=== PATIENT | female | born 1990 | race Caucasian/White ===

== ENCOUNTER 2017-03-08 01:19 | Emergency (ER) | payer BC ==
[2017-03-08 01:52] VITALS: BP 121/72
[2017-03-08] MEDS ORDERED: Ondansetron 4 MG Tab.DIS PO ONE (02:23)
[2017-03-08] MEDS ORDERED: Dicyclomine 10 MG Cap PO ONE (02:23)
--- NOTE | 2017-03-08 02:24 | EDM.PDOC ---
ED HPI GENERAL MEDICAL PROBLEM - General Chief Complaint: Abdominal Pain Stated Complaint: ABDOMINAL PAIN Time Seen by Provider: 03/08/17 02:23 Source of Information: Reports: Patient, Family (mother) History Limitations: Reports: No Limitations - History of Present Illness INITIAL COMMENTS - FREE TEXT/NARRATIVE: 26-year-old female presents to the ED with acute onset of nausea vomiting and diarrhea. She reports that she ate out at [employer] restaurant at about 1900 hrs. About 2300 hrs. she had spontaneous onset of nausea vomiting and diarrhea. There is some concern therefore for for potential foodborne illness. She reports she's vomited 5 times the initial emesis did contain partially digested food. The rest has been bilious without blood. Diarrhea is been fairly prolific large-volume watery loss without blood. Associated diffuse lower abdominal cramping pain. No fever but does have some chills. Onset: Sudden Onset Date: 03/07/17 Onset Time: 23:00 Duration: Hour(s):, Constant (Can stop vomiting or having diarrhea) Location: Reports: Other (Nausea vomiting and diarrhea) Severity: Severe Improves with: Reports: None Worsens with: Reports: None Context: Reports: Other (Possible foodborne illness). Denies: Activity, Exercise, Lifting, Sick Contact, Trauma Associated Symptoms: Reports: Fever/Chills, Malaise, Nausea/Vomiting (Chills but no fever intractable), Other (Diarrhea.). 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 Denies: Fever HEENT: Reports: No Symptoms Respiratory: Reports: No Symptoms Cardiovascular: Reports: No Symptoms Endocrine: Reports: No Symptoms GI/Abdominal: Reports: Abdominal Pain (Intermittent abdominal cramping pain before the diarrhea. Upper abdominal pain from vomiting so much.), Diarrhea, Nausea, Vomiting. Denies: Hematemesis, Hematochezia : Reports: No Symptoms Musculoskeletal: Reports: No Symptoms Skin: Reports: No Symptoms Neurological: Reports: No Symptoms Psychiatric: Reports: No Symptoms Hematologic/Lymphatic: Reports: No Symptoms Immunologic: Reports: No Symptoms ED EXAM, GI/ABD - Physical Exam Exam: See Below Exam Limited By: No Limitations General Appearance: Alert, WD/WN, Mild Distress, Other (At that time I had seen her should not vomited for half an hour or had any further diarrhea.) Eyes: Bilateral: Normal Appearance Respiratory/Chest: No Respiratory Distress, Lungs Clear, Normal Breath Sounds, No Accessory Muscle Use Cardiovascular: Normal Peripheral Pulses, Regular Rate, Rhythm, No Edema, No Gallop, No Murmur, No Rub GI/Abdominal Exam: Soft, Non-Tender, No Distention, No Abnormal Bruit, Abnormal Bowel Sounds (Mildly hyperactive bowel sounds throughout.). No: Guarding, Rigid , Rebound Extremities: Normal Inspection, Normal Range of Motion, Non-Tender, No Pedal Edema Neurological: Alert, Oriented, CN II-XII Intact, Normal Cognition Psychiatric: Normal Affect, Normal Mood Course - Vital Signs Last Recorded V/S: Last Vital Signs Temp 36.2 C 03/08/17 01:49 Pulse 92 03/08/17 01:49 Resp 16 03/08/17 01:49 BP 121/72 03/08/17 01:49 Pulse Ox 99 09/10/17 01:49 - Orders/Labs/Meds Meds: Medications Discontinued Medications Generic Name Dose Route Start Last Admin Trade Name Chip PRN Reason Stop Dose Admin Dicyclomine HCl 20 mg 03/08/17 02:23 Bentyl PO 03/08/17 02:24 ONETIME ONE Ondansetron HCl 4 mg 03/08/17 02:23 03/08/17 02:46 Zofran Odt PO 03/08/17 02:24 4 mg ONETIME ONE Administration - Radiology Interpretation Free Text/Narrative:: 26-year-old female presents to the ED with acute onset of nausea vomiting and diarrhea. This occurred about 4 hours after she ate last raising suspicion of foodborne illness or toxin induced illness. She is afebrile. She had not vomited for half an hour had any further diarrhea prior to me seeing her. She therefore elected for oral medications. We'll try oral Zofran 44 mg sublingual every 4-6 hours when necessary for nausea vomiting. Given a tablet in the ED and 2 were sent home from the [facility]. Also Bentyl 20 mg be given now and further dicyclomine will be picked up through the [employer] machine. Tentatively she'll be going to sleep and will try clear fluids in the morning and advance diet as tolerable. Usually foodborne illness will last about 24 hours. Departure - Departure Time of Disposition: 02:32 Disposition: Home, Self-Care 01 Condition: Fair Clinical Impression: Gastroenteritis - Discharge Information Prescriptions: Dicyclomine [Bentyl] 20 mg PO Q6H PRN #5 tablet PRN Reason: Abdominal cramps/diarrhea Dicyclomine [Bentyl] 20 mg PO Q6H PRN #2 tablet PRN Reason: Abdominal cramps/diarrhea Ondansetron [Zofran ODT] 4 mg PO Q6H #2 tab.dis Instructions: Nausea and Vomiting, Adult, [id number] Referrals: Elvira Dutton PA-C [Primary Care Provider] - Forms: ED Department Discharge Additional Instructions: Evaluation in the emergency department due to sudden onset of nausea vomiting and profuse diarrhea. Of note this occurred within 4 hours of eating at a local restaurant. His tree is highly suggestive of foodborne illness I a toxin in something that you ate that produced acute onset of nausea vomiting diarrhea. Treatment is Zofran 4 mg under the tongue every 6 hours as needed to relieve any nausea or vomiting for the next 12-16 hours. Suggest Bentyl 20 mg every 6 hours as needed for relief of abdominal cramping pain and diarrhea. Clear fluids today such as Gatorade Powerade initially. If tolerated may advance to crackers and then to broth soup or chicken rice turkey noodle etc. Then may advance to toast. Hard-boiled egg etc.
[2017-03-08] MEDS ORDERED: Ondansetron 4 MG Tab.DIS ONE (02:53)
== END 2017-03-08 03:20 | disposition home or self-care (01) ==
LOC: JD.ED 01:19
DX: K52.9 Noninfective gastroenteritis and colitis, unspecified (principal); F17.210 Nicotine dependence, cigarettes, uncomplicated
CPT/HCPCS: 99284; A9270

== ENCOUNTER 2018-09-13 11:48 | Emergency (ER) | payer BC | END 2018-09-13 12:00 | disposition left against medical advice (07) | LOC: JD.ED 11:48 | DX: Z53.21 Procedure and treatment not carried out due to patient leaving prior to being seen by health care provider (principal) ==

== ENCOUNTER 2018-09-17 21:08 | Inpatient (IN) | payer BC ==
--- NOTE | 2018-09-17 21:39 | EDM.PDOC ---
ED HPI GENERAL MEDICAL PROBLEM - General Chief Complaint: Skin Complaint Stated Complaint: ABCESS ON LEFT FOOT Time Seen by Provider: 09/17/18 21:09 Source of Information: Reports: Patient History Limitations: Reports: No Limitations - History of Present Illness INITIAL COMMENTS - FREE TEXT/NARRATIVE: This is a 27-year-old female. She states she is an IV drug user and she injects methamphetamine. Her last use was around noon today. Apparently around 6 days ago she attempted to inject in her left foot but she says she didn 't get into the vein and so she didn't inject but it was a dirty needle. She had some redness of that area but then over the last 48 hours she's had marked increased swelling and pain and redness running up the lateral side of her lower leg. Due to the pain and the swelling that is progressively worsened she comes to the ER this evening. She denies any fever or denies any chills. She says she uses consistently and she has track johnson on her hands and her antecubital area and her feet. Left Foot Pain Score (Numeric/FACES): 10 - Related Data Allergies Allergy/AdvReac Type Severity Reaction Status Date / Time No Known Allergies Allergy Verified 03/08/17 01:52 Home Meds: Home Meds . 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: Social & Family History - Family History Family Medical History: Noncontributory - Tobacco Use Smoking Status *Q: Current Every Day Smoker Years of Tobacco use: 10 Packs/Tins Daily: 0.5 - Caffeine Use Caffeine Use: Reports: Coffee, Energy Drinks, Soda, Tea - Recreational Drug Use Recreational Drug Use: Yes Recreational Drug Type: Reports: Methamphetamine Other Recreational Drug Type: last used today at noon; has been using for pat 2 weeks otherwise was clean for 3 yrs - Living Situation & Occupation Living situation: Reports: Single ED ROS GENERAL - Review of Systems Review Of Systems: See Below Constitutional: Denies: Fever, Chills HEENT: Reports: No Symptoms Respiratory: Denies: Shortness of Breath, Cough Cardiovascular: Denies: Chest Pain Endocrine: Reports: No Symptoms GI/Abdominal: Denies: Abdominal Pain, Constipation, Diarrhea, Nausea, Vomiting : Reports: No Symptoms Musculoskeletal: Reports: Foot Pain Skin: Reports: Pallor, Erythema Neurological: Reports: No Symptoms Psychiatric: Reports: No Symptoms Hematologic/Lymphatic: Reports: No Symptoms ED EXAM, SKIN/RASH Exam: See Below Exam Limited By: No Limitations General Appearance: Alert, WD/WN, Mild Distress Eye Exam: Bilateral Eye: Normal Inspection Ears: Normal External Exam Nose: Normal Inspection Throat/Mouth: Normal Inspection, Normal Lips, Normal Voice, No Airway Compromise Head: Normocephalic Neck: Supple Respiratory/Chest: No Respiratory Distress, Lungs Clear, Normal Breath Sounds Cardiovascular: Regular Rate, Rhythm, No Murmur GI/Abdominal: Soft, Other (She denies any tenderness) Back Exam: Full Range of Motion Extremities: Other (She has multiple injection sites on her hands and antecubital area and arms as well as her feet, her left lower extremity is markedly swollen with severe edema and erythema that runs up about a third of the way up her left lower leg on the lateral side, she does have good capillary refill in her toes but her dorsal foot is somewhat pale, she has no ability to move her ankle or her toes secondary to pain) Neurological: Alert, Oriented Psychiatric: Anxious Skin: Warm, Dry Associated features: Tenderness, Swelling, Induration, Inflammation Course - Vital Signs Last Recorded V/S: Last Vital Signs Temp 98.3 F 09/17/18 21:23 Pulse 110 H 09/17/18 21:23 Resp 20 09/17/18 21:23 BP 109/59 L 09/17/18 21:23 Pulse Ox 99 09/17/18 21:23 - Orders/Labs/Meds Orders: Active Orders 24 hr Category Date Time Status Extremity Non Vascular Lt [US] Stat Exams 09/17/18 21:59 Ordered Lower Leg w Cont Lt [CT] Stat Exams 09/17/18 22:11 Taken VL Duplex Lwr Ext Veins Ltd Lt [US] Stat Exams 09/17/18 21:40 Taken CULTURE BLOOD [BC] Stat Lab 09/17/18 23:00 Received CULTURE BLOOD [BC] Stat Lab 09/17/18 23:05 Received cefTRIAXone [Rocephin] 2 gm Med 09/17/18 23:45 Active Sodium Chloride 0.9% [Normal Saline] 100 ml IV Q24H Blood Culture x2 Reflex Set [OM.PC] Stat Oth 09/17/18 22:40 Ordered Medication Orders Ceftriaxone Sodium 2 gm/ (Sodium Chloride) 100 mls @ 200 mls/hr IV Q24H CYNTHIA Last Admin: 09/17/18 23:53 Dose: 200 mls/hr Labs: Laboratory Tests 09/17/18 09/17/18 09/17/18 Range/Units 21:57 21:57 23:00 WBC 32.52 H (3.98-10.04) K/mm3 RBC 4.26 (3.98-5.22) M/mm3 Hgb 13.4 (11.2-15.7) gm/L Hct 39.6 (34.1-44.9) % MCV 93.0 (79.4-94.8) fl MCH 31.5 (25.6-32.2) pg MCHC 33.8 (32.2-35.5) g/dl RDW Std Deviation 41.2 (36.4-46.3) fL Plt Count 181 L (182-369) K/mm3 MPV 11.4 (9.4-12.3) fl Neut % (Auto) 87.5 H (34.0-71.1) % Lymph % (Auto) 5.2 L (19.3-51.7) % Bibb % (Auto) 6.0 (4.7-12.5) % Eos % (Auto) 0.7 (0.7-5.8) Baso % (Auto) 0.1 (0.1-1.2) % Neut # (Auto) 28.42 H (1.56-6.13) K/mm3 Lymph # (Auto) 1.69 (1.18-3.74) K/mm3 Bibb # (Auto) 1.96 H (0.24-0.36) K/mm3 Eos # (Auto) 0.24 (0.04-0.36) K/mm3 Baso # (Auto) 0.04 (0.01-0.08) K/mm3 Manual Slide Review Abnormal smear Sodium 136 (136-145) mEq/L Potassium 3.3 L (3.5-5.1) mEq/L Chloride 101 (98-107) mEq/L Carbon Dioxide 24 (21-32) mEq/L Anion Gap 14.3 (5-15) BUN 11 (7-18) mg/dL Creatinine 0.9 (0.55-1.02) mg/dL Est Cr Clr Drug Dosing 79.04 mL/min Estimated GFR (MDRD) > 60 (>60) mL/min BUN/Creatinine Ratio 12.2 L (14-18) Glucose 108 H (74-106) mg/dL Lactic Acid 0.8 (0.4-2.0) mmol/L Calcium 8.8 (8.5-10.1) mg/dL Total Bilirubin 1.1 H (0.2-1.0) mg/dL AST 14 L (15-37) U/L ALT 22 (14-59) U/L Alkaline Phosphatase 106 (46-116) U/L C-Reactive Protein 37.3 H* (<1.0) mg/dL Total Protein 7.0 (6.4-8.2) g/dl Albumin 3.2 L (3.4-5.0) g/dl Globulin 3.8 gm/dL Albumin/Globulin Ratio 0.8 L (1-2) Meds: Medications Generic Name Dose Route Start Last Admin Trade Name Freq PRN Reason Stop Dose Admin Ceftriaxone Sodium 2 gm/ 100 mls @ 200 mls/hr 09/17/18 23:45 09/17/18 23:53 Sodium Chloride IV 200 mls/hr Q24H CYNTHIA Administration Discontinued Medications Generic Name Dose Route Start Last Admin Trade Name Freq PRN Reason Stop Dose Admin Iopamidol 100 ml 09/17/18 22:26 Isovue-370 (76%) IV 09/17/18 22:27 ONETIME ONE Ketorolac Tromethamine 60 mg 09/17/18 21:42 09/17/18 21:47 Toradol IM 09/17/18 21:43 60 mg ONETIME ONE Administration Ketorolac Tromethamine 60 mg 09/17/18 21:43 09/17/18 21:49 Toradol IM 09/17/18 21:44 Not Given ONETIME ONE Tramadol HCl 50 mg 09/17/18 21:43 09/17/18 21:48 Ultram PO 09/17/18 21:44 50 mg ONETIME ONE Administration Tramadol HCl 100 mg 09/17/18 21:43 09/17/18 21:49 Ultram PO 09/17/18 21:44 Not Given ONETIME ONE - Radiology Interpretation Free Text/Narrative:: Ultrasound of the left ankle and foot does not reveal any abscess just edema CT scan of the left ankle and foot also reveals a large amount of subcutaneous edema but there is no abscesses no suggestion of osteomyelitis. - Re-Assessments/Exams Free Text/Narrative Re-Assessment/Exam: 09/18/18 00:04 I spoke to the patient regarding the ultrasound results as well as the CT scan results. I spoke to her about her white count 32,000 and her C-reactive protein of 37 and that she needs to be in the hospital for IV antibiotics. She is agreeable to this. I spoke to Dr. Booth and he is willing to admit the patient for further evaluation and treatment of her cellulitis. Departure - Departure Time of Disposition: 00:05 Disposition: Admitted As Inpatient 68 Condition: Fair Clinical Impression: Cellulitis of left foot, Cellulitis of left ankle, Neutrophilic leukocytosis, Elevated C-reactive protein, IV drug user, Methamphetamine abuse - Discharge Information ED Communication - ED Communication Date/Time Date: 09/18/18 Time Called: 00:07 - Discussed Case With (1) Discussed Case With (1): Admitting Provider Person/s Notified (1): Jose Booth (He will admit for further evaluation and treatment) - My Orders Last 24 Hours: My Active Orders 09/17/18 21:40 VL Duplex Lwr Ext Veins Ltd Lt [US] Stat 09/17/18 21:59 Extremity Non Vascular Lt [US] Stat 09/17/18 22:11 Lower Leg w Cont Lt [CT] Stat 09/17/18 22:40 Blood Culture x2 Reflex Set [OM.PC] Stat 09/17/18 23:00 CULTURE BLOOD [BC] Stat 09/17/18 23:05 CULTURE BLOOD [BC] Stat 09/17/18 23:45 cefTRIAXone [Rocephin] 2 gm Sodium Chloride 0.9% [Normal Saline] 100 ml IV Q24H - Assessment/Plan Last 24 Hours: My Active Orders 09/17/18 21:40 VL Duplex Lwr Ext Veins Ltd Lt [US] Stat 09/17/18 21:59 Extremity Non Vascular Lt [US] Stat 09/17/18 22:11 Lower Leg w Cont Lt [CT] Stat 09/17/18 22:40 Blood Culture x2 Reflex Set [OM.PC] Stat 09/17/18 23:00 CULTURE BLOOD [BC] Stat 09/17/18 23:05 CULTURE BLOOD [BC] Stat 09/17/18 23:45 cefTRIAXone [Rocephin] 2 gm Sodium Chloride 0.9% [Normal Saline] 100 ml IV Q24H
[2018-09-17] MEDS ORDERED: Ketorolac 60 MG/2 ML SDV IM ONE ×2 (21:42→21:43)
[2018-09-17] MEDS ORDERED: traMADol 50 MG Tab PO ONE ×2 (21:43)
[2018-09-17] MEDS ORDERED: Iopamidol 755 Mg/ML 200 ML Bottle IV ONE (22:26)
[2018-09-17] MEDS ORDERED: cefTRIAXone 2 GM in Sodium Chloride 0.9% 100 ML IV SCH (23:45)
[2018-09-18] MEDS ORDERED: Sodium Chloride 0.9% 1,000 ML ONE (01:14)
[2018-09-18] MEDS ORDERED: LORazepam 2 MG/ML SDV IVPUSH PRN ×2 (02:20→08:40)
[2018-09-18] MEDS ORDERED: HYDROmorphone 1 MG/ML Syringe IVPUSH ONE (07:13)
[2018-09-18] MEDS: Acetaminophen/HYDROcodone 325-5 MG Tab PO PRN ×4 (07:26→20:56)
[2018-09-18] MEDS ORDERED: hydrALAZINE 20 MG/ML SDV IVPUSH PRN (08:40)
[2018-09-18] MEDS ORDERED: Metoprolol Tartrate 5 MG/5 ML SDV IVPUSH PRN (08:40)
[2018-09-18] MEDS ORDERED: LORazepam 2 MG/ML SDV IV PRN (08:42)
[2018-09-18] MEDS ORDERED: Bisacodyl 5 MG Tab PO PRN (08:42)
[2018-09-18] MEDS ORDERED: Albuterol/Ipratropium 3.0-0.5 MG/3 ML Neb Soln NEB PRN (08:42)
[2018-09-18] MEDS ORDERED: Temazepam 15 MG Cap PO PRN (08:42)
[2018-09-18] MEDS ORDERED: Polyethylene Glycol 3350 Powder 17 GM Packet PO PRN (08:42)
[2018-09-18] MEDS ORDERED: Docusate Sodium 100 MG Cap PO PRN (08:42)
[2018-09-18] MEDS ORDERED: Ondansetron 4 MG/2 ML SDV IV PRN (08:42)
[2018-09-18] MEDS ORDERED: Famotidine 20 MG/2 ML SDV IVPUSH ONE (09:00)
[2018-09-18] MEDS ORDERED: Potassium Chloride 20 MEQ Tab.ER PO ONE (09:15)
[2018-09-18] MEDS: Enoxaparin 40 MG/0.4 ML Syringe SUBCUT SCH (09:19)
[2018-09-18] MEDS: Sodium Chloride 0.9% 1,000 ML IV SCH ×2 (09:20→17:27)
[2018-09-18] MEDS: Ketorolac 30 MG/ML SDV IM PRN ×2 (09:32→16:12)
--- NOTE | 2018-09-18 09:51 | PCM.HP ---
H&P History of Present Illness - General Date of Service: 09/18/18 Admit Problem/Dx: Admission Diagnosis/Problem Admission Diagnosis/Problem Cellulitis Source of Information: Patient, Provider, RN Notes Reviewed History Limitations: Reports: Physical Impairment - History of Present Illness Initial Comments - Free Text/Narative: This is a 27 yo white female with past medical hx/o Nicotine Dependence, Hx/o Heroin Abuse, Chronic Meth and Marijuana Use who comes in for evaluation of left foot pain associated with worsening edema and erythema that started over the past 48 hours. She denies any fever or chills. However she admits she is an IVU and she injects meth in her left ankle. He last use was about noon yesterday. She is also a marijuana user. She denies a similar hx/o it in the past. Patient smokes cigarettes about 1/2 a pack per day. She drinks 2-3 beers once a week. Her initial work up in ED shows a CBC remarkable for WBC of 32.52, Platelet of 181, Neutrophils of 87.5%, Lymphocyte of 5.2%, Neutrophil # of 28.42, and Monocyte # of 1.96. Her chemistry is significant for K of 3.3, BS of 108, Total Bilirubin of 1.1, AST of 14, CRP of 37.3, and Albumin of 3.2. Her screening is negative. Her left lower extremity US and CT scan report both reads diffuse subcutaneous edema. Patient is being admitted primarily for management of severe left foot infection. Left Foot Pain Score (Numeric/FACES): 10 - Related Data Allergies/Adverse Reactions: Allergies Allergy/AdvReac Type Severity Reaction Status Date / Time No Known Allergies Allergy Verified 09/18/18 03:43 Home Medications: Home Meds . [No Known Home Meds] 09/17/18 [History] Past Medical History - Past Health History Medical/Surgical History: Denies Medical/Surgical History HEENT History: Reports: Impaired Vision, Other (See Below) Other HEENT History: pt wears glasses [employer] History: Reports: Psychiatric History: Reports: Anxiety, Depression Endocrine/Metabolic History: Reports: Obesity/BMI 30+ - Infectious Disease History Infectious Disease History: Reports: Chicken Pox - Past Surgical History HEENT Surgical History: Reports: None Endocrine Surgical History: Reports: None Social & Family History - Family History Family Medical History: Noncontributory - Tobacco Use Smoking Status *Q: Current Every Day Smoker Years of Tobacco use: 10 Packs/Tins Daily: 1 Used Tobacco, but Quit: No Second Hand Smoke Exposure: No - Caffeine Use Caffeine Use: Reports: Coffee, Energy Drinks, Soda, Tea Other Caffeine Use: one soda, one coffee and every couple of days energy drink or tea - Recreational Drug Use Recreational Drug Use: Yes Drug Use in Last 12 Months: Yes Recreational Drug Type: Reports: Marijuana/Hashish, Methamphetamine Other Recreational Drug Type: last used today at noon; has been using for pat 2 weeks otherwise was clean for 3 yrs Recreational Drug Use Frequency: Daily - Living Situation & Occupation Living situation: Reports: Single H&P Review of Systems - Review of Systems: Review Of Systems: See Below General: Reports: Fever, Chills, Weakness. Denies: Malaise, Fatigue HEENT: Reports: No Symptoms Pulmonary: Reports: Shortness of Breath, Cough, Sputum Cardiovascular: Reports: Edema. Denies: Chest Pain, Dyspnea on Exertion, Lightheadedness, Claudication, Blood Pressure Problem Gastrointestinal: Denies: Abdominal Pain, Decreased Appetite, Nausea, Vomiting Musculoskeletal: Reports: Foot Pain Skin: Reports: No Symptoms, Pallor, Erythema, Change in Color. Denies: Jaundice , Diaphoresis, Bruising, Pruritis, Rash, Change in Hair/Nails, Lumps Psychiatric: Denies: Depression, Anxiety, Hallucinations, Suicidal Ideation Neurological: Reports: Difficulty Walking, Gait Disturbance. Denies: Confusion , Dizziness, Weakness Hematologic/Lymphatic: Reports: No Symptoms Immunologic: Reports: No Symptoms Exam - Exam Exam: See Below - Vital Signs Vital Signs: Last Vital Signs Temp 36.1 C 09/18/18 08:01 Pulse 97 09/18/18 08:01 Resp 14 09/18/18 08:01 BP 129/59 L 09/18/18 08:01 Pulse Ox 96 09/18/18 08:01 Weight: 78.744 kg - Exam General: Alert, Oriented, Cooperative, Mild Distress HEENT: Conjunctiva Clear, EACs Clear, EOMI, Hearing Intact, Mucosa Moist & Wiggins , Nares Patent, Normal Nasal Septum, Posterior Pharynx Clear, Pupils Equal, Pupils Reactive Neck: Supple, Trachea Midline Lungs: Clear to Auscultation, Normal Respiratory Effort Cardiovascular: Regular Rate, Regular Rhythm, Normal S1, Normal S2. No: Systolic Murmur, Diastolic Murmur GI/Abdominal Exam: Normal Bowel Sounds, Soft, Non-Tender, No Organomegaly, No Distention, No Abnormal Bruit, No Mass (Female) Exam: Deferred Rectal (Female) Exam: Deferred Back Exam: Normal Inspection, Full Range of Motion Extremities: Normal Inspection (right lower extremity), Normal Range of Motion ( right lower extremity), Non-Tender (right lower extremity), No Pedal Edema ( right lower extremity), Normal Capillary Refill (right lower extremity), Leg Pain (left lower extremity), Limited Range of Motion (left lower extremity), Increased Warmth (left lower extremity), Redness (left lower extremity), Other ( multiple injection sites in her hands and antecubital area and arms as well as her feet) Peripheral Pulses: 0: Posterior Tibial (L) (unable to palpate due to edema), Dorsalis Pedis (R) (unable to palpate due to edema), 3+: Posterior Tibial (R), Dorsalis Pedis (L) Skin: Warm, Dry, Intact Skin Alteration Location (Drawings Not To Scale): 1 - severe edema, erythema and pain with palpation. no movement at her ankle or toes due to pain. noted bliters/bulae at lateral ankle - Patient Data Lab Results Last 24 hrs: Laboratory Results - last 24 hr 09/17/18 09/17/18 09/17/18 Range/Units 21:57 21:57 21:57 WBC 32.52 H (3.98-10.04) K/mm3 RBC 4.26 (3.98-5.22) M/mm3 Hgb 13.4 (11.2-15.7) gm/L Hct 39.6 (34.1-44.9) % MCV 93.0 (79.4-94.8) fl MCH 31.5 (25.6-32.2) pg MCHC 33.8 (32.2-35.5) g/dl RDW Std Deviation 41.2 (36.4-46.3) fL Plt Count 181 L (182-369) K/mm3 MPV 11.4 (9.4-12.3) fl Neut % (Auto) 87.5 H (34.0-71.1) % Lymph % (Auto) 5.2 L (19.3-51.7) % [place] % (Auto) 6.0 (4.7-12.5) % Eos % (Auto) 0.7 (0.7-5.8) Baso % (Auto) 0.1 (0.1-1.2) % Neut # (Auto) 28.42 H (1.56-6.13) K/mm3 Lymph # (Auto) 1.69 (1.18-3.74) K/mm3 [place] # (Auto) 1.96 H (0.24-0.36) K/mm3 Eos # (Auto) 0.24 (0.04-0.36) K/mm3 Baso # (Auto) 0.04 (0.01-0.08) K/mm3 Manual Slide Review Abnormal smear Sodium 136 (136-145) mEq/L Potassium 3.3 L (3.5-5.1) mEq/L Chloride 101 (98-107) mEq/L Carbon Dioxide 24 (21-32) mEq/L Anion Gap 14.3 (5-15) BUN 11 (7-18) mg/dL Creatinine 0.9 (0.55-1.02) mg/dL Est Cr Clr Drug Dosing 79.04 mL/min Estimated GFR (MDRD) > 60 (>60) mL/min BUN/Creatinine Ratio 12.2 L (14-18) Glucose 108 H (74-106) mg/dL Lactic Acid (0.4-2.0) mmol/L Calcium 8.8 (8.5-10.1) mg/dL Total Bilirubin 1.1 H (0.2-1.0) mg/dL AST 14 L (15-37) U/L ALT 22 (14-59) U/L Alkaline Phosphatase 106 (46-116) U/L C-Reactive Protein 37.3 H* (<1.0) mg/dL Total Protein 7.0 (6.4-8.2) g/dl Albumin 3.2 L (3.4-5.0) g/dl Globulin 3.8 gm/dL Albumin/Globulin Ratio 0.8 L (1-2) HCG, Qual Negative (NEGATIVE) 09/17/18 09/18/18 Range/Units 23:00 07:00 WBC 27.85 H (3.98-10.04) K/mm3 RBC 4.11 (3.98-5.22) M/mm3 Hgb 12.9 (11.2-15.7) gm/L Hct 37.8 (34.1-44.9) % MCV 92.0 (79.4-94.8) fl MCH 31.4 (25.6-32.2) pg MCHC 34.1 (32.2-35.5) g/dl RDW Std Deviation 41.6 (36.4-46.3) fL Plt Count 137 L (182-369) K/mm3 MPV 11.5 (9.4-12.3) fl Neut % (Auto) (34.0-71.1) % Lymph % (Auto) (19.3-51.7) % [place] % (Auto) (4.7-12.5) % Eos % (Auto) (0.7-5.8) Baso % (Auto) (0.1-1.2) % Neut # (Auto) (1.56-6.13) K/mm3 Lymph # (Auto) (1.18-3.74) K/mm3 [place] # (Auto) (0.24-0.36) K/mm3 Eos # (Auto) (0.04-0.36) K/mm3 Baso # (Auto) (0.01-0.08) K/mm3 Manual Slide Review Sodium (136-145) mEq/L Potassium (3.5-5.1) mEq/L Chloride (98-107) mEq/L Carbon Dioxide (21-32) mEq/L Anion Gap (5-15) BUN (7-18) mg/dL Creatinine (0.55-1.02) mg/dL Est Cr Clr Drug Dosing mL/min Estimated GFR (MDRD) (>60) mL/min BUN/Creatinine Ratio (14-18) Glucose (74-106) mg/dL Lactic Acid 0.8 (0.4-2.0) mmol/L Calcium (8.5-10.1) mg/dL Total Bilirubin (0.2-1.0) mg/dL AST (15-37) U/L ALT (14-59) U/L Alkaline Phosphatase (46-116) U/L C-Reactive Protein (<1.0) mg/dL Total Protein (6.4-8.2) g/dl Albumin (3.4-5.0) g/dl Globulin gm/dL Albumin/Globulin Ratio (1-2) HCG, Qual (NEGATIVE) Result Diagrams: 09/19/18 06:25 09/19/18 06:25 Franco Results Last 24 hrs: Microbiology 09/17/18 23:05 Anaerobic Blood Culture - Final Blood - Venous - Lab Draw Problem List Initiated/Reviewed/Updated: Yes Orders Last 24hrs: Active Orders 24 hr Category Date Time Status Admission Status [Patient Status] [ADT] Routine ADT 09/18/18 00:24 Active Height and Weight [RC] DAILY Care 09/18/18 08:42 Active Intake and Output [RC] QSHIFT Care 09/18/18 08:42 Active Oxygen Therapy [RC] PRN Care 09/18/18 08:42 Active RT Aerosol Therapy [RC] ASDIRECTED Care 09/18/18 08:45 Active Up With Assistance [RC] ASDIRECTED Care 09/18/18 02:27 Active VTE/DVT Education [RC] PER UNIT ROUTINE Care 09/18/18 08:42 Active Vital Signs [RC] Q4H Care 09/18/18 08:42 Active Consult to Case Management/Technical Specialist Cytogenetics [CONS] Cons 09/18/18 08:42 Active Routine Consult to Spiritual Care [CONS] Routine Cons 09/18/18 08:42 Active OT Evaluation and Treatment [CONS] Routine Cons 09/18/18 08:42 Active PT Evaluation and Treatment [CONS] Routine Cons 09/18/18 08:42 Active General [Regular Diet] [DIET] Diet 09/18/18 Lunch Active Extremity Non Vascular Lt [US] Stat Exams 09/17/18 21:59 Ordered Lower Leg w Cont Lt [CT] Stat Exams 09/17/18 22:11 Taken VL Duplex Lwr Ext Veins Ltd Lt [US] Stat Exams 09/17/18 21:40 Taken BASIC METABOLIC PANEL,BMP [CHEM] AM Lab 09/19/18 05:11 Ordered BASIC METABOLIC PANEL,BMP [CHEM] AM Lab 09/20/18 05:11 Ordered BASIC METABOLIC PANEL,BMP [CHEM] AM Lab 09/21/18 05:11 Ordered BASIC METABOLIC PANEL,BMP [CHEM] AM Lab 09/22/18 05:11 Ordered C-REACTIVE PROTEIN [CHEM] AM Lab 09/19/18 05:11 Ordered C-REACTIVE PROTEIN [CHEM] AM Lab 09/20/18 05:11 Ordered C-REACTIVE PROTEIN [CHEM] AM Lab 09/21/18 05:11 Ordered C-REACTIVE PROTEIN [CHEM] AM Lab 09/22/18 05:11 Ordered CBC WITH AUTO DIFF [HEME] AM Lab 09/19/18 05:11 Ordered CBC WITH AUTO DIFF [HEME] AM Lab 09/20/18 05:11 Ordered CBC WITH AUTO DIFF [HEME] AM Lab 09/21/18 05:11 Ordered CBC WITH AUTO DIFF [HEME] AM Lab 09/22/18 05:11 Ordered CULTURE BLOOD [BC] Stat Lab 09/17/18 23:00 Received CULTURE BLOOD [BC] Stat Lab 09/17/18 23:05 Results DRUG SCREEN, URINE REFLEX [URCHEM] Stat Lab 09/18/18 08:40 Ordered MAGNESIUM [CHEM] AM Lab 09/19/18 05:11 Ordered MAGNESIUM [CHEM] AM Lab 09/20/18 05:11 Ordered MAGNESIUM [CHEM] AM Lab 09/21/18 05:11 Ordered MAGNESIUM [CHEM] AM Lab 09/22/18 05:11 Ordered Acetaminophen [Tylenol] Med 09/18/18 08:42 Active 650 mg PO Q4H PRN Acetaminophen/HYDROcodone [[place] 325-5 MG] Med 09/18/18 07:14 Active 1 tab PO Q4H PRN Albuterol/Ipratropium [DuoNeb 3.0-0.5 MG/3 ML] Med 09/18/18 08:42 Active 3 ml NEB Q4H PRN Bisacodyl [Dulcolax] Med 09/18/18 08:42 Active 5 mg PO DAILY PRN Docusate Sodium [Colace] Med 09/18/18 08:42 Active 100 mg PO BID PRN Docusate Sodium/Sennosides [Senna Plus] Med 09/18/18 08:42 Active 1 tab PO BID PRN Enoxaparin [Lovenox] Med 09/18/18 09:00 Active 40 mg SUBCUT DAILY Famotidine [Pepcid] Med 09/18/18 21:00 Active 20 mg PO BID HYDROmorphone [Dilaudid] Med 09/18/18 08:42 Active 0.5 mg IVPUSH Q6H PRN Ketorolac [Toradol] Med 09/18/18 08:42 Active 30 mg IM Q6H PRN LORazepam [Ativan] Med 09/18/18 02:20 Active 0.5 mg IVPUSH Q4H PRN LORazepam [Ativan] Med 09/18/18 08:42 Active 1 mg IV Q6H PRN LORazepam [Ativan] Med 09/18/18 08:40 Active 2 mg IVPUSH Q4H PRN Metoprolol Tartrate [Lopressor] Med 09/18/18 08:40 Active 5 mg IVPUSH Q4H PRN Ondansetron [Zofran] Med 09/18/18 08:42 Active 4 mg IV Q6H PRN Pharmacy to Dose - Magnesium R [Pharmacy to Dose - Med 09/18/18 08:45 Active Magnesium Replacement] 0 dose .XX ASDIRECTED PRN Pharmacy to Dose - Potassium R [Pharmacy to Dose - Med 09/18/18 08:45 Active Potassium Replacement] 0 dose .XX ASDIRECTED PRN Polyethylene Glycol 3350 [MiraLAX] Med 09/18/18 08:42 Active 17 gm PO DAILY PRN Sodium Chloride 0.9% [Normal Saline] 1,000 ml Med 09/18/18 02:30 Active IV ASDIRECTED Temazepam [Restoril] Med 09/18/18 08:42 Active 15 mg PO BEDTIME PRN cefTRIAXone [Rocephin] 2 gm Med 09/18/18 12:00 Active Sodium Chloride 0.9% [Normal Saline] 100 ml IV Q24H hydrALAZINE [Apresoline] Med 09/18/18 08:40 Active 20 mg IVPUSH Q4H PRN Blood Culture x2 Reflex Set [OM.PC] Stat Oth 09/17/18 22:40 Ordered Code Status [Resuscitation Status] Routine Resus Stat 09/18/18 02:25 Ordered Medication Orders Acetaminophen (Tylenol) 650 mg PO Q4H PRN PRN Reason: Pain (Mild 1-3)/fever Hydrocodone Bitart/Acetaminophen ([place] 325-5 Mg) 1 tab PO Q4H PRN PRN Reason: Pain Last Admin: 09/18/18 07:26 Dose: 1 tab Albuterol/Ipratropium (Duoneb 3.0-0.5 Mg/3 Ml) 3 ml NEB Q4H PRN PRN Reason: Shortness Of Breath/wheezing Bisacodyl (Dulcolax) 5 mg PO DAILY PRN PRN Reason: Constipation Docusate Sodium (Colace) 100 mg PO BID PRN PRN Reason: Constipation Enoxaparin Sodium (Lovenox) 40 mg SUBCUT DAILY [facility] Last Admin: 09/18/18 09:19 Dose: 40 mg Famotidine (Pepcid) 20 mg PO BID [place] Hydralazine HCl (Apresoline) 20 mg IVPUSH Q4H PRN PRN Reason: Hypertension Hydromorphone HCl (Dilaudid) 0.5 mg IVPUSH Q6H PRN PRN Reason: Pain (severe 7-10) Sodium Chloride (Normal Saline) 1,000 mls @ 125 mls/hr IV ASDIRECTED [facility] Last Admin: 09/18/18 09:20 Dose: 125 mls/hr Ceftriaxone Sodium 2 gm/ (Sodium Chloride) 100 mls @ 200 mls/hr IV Q24H [facility] Ketorolac Tromethamine (Toradol) 30 mg IM Q6H PRN PRN Reason: Pain (moderate 4-6) Last Admin: 09/18/18 09:32 Dose: 30 mg Lorazepam (Ativan) 0.5 mg IVPUSH Q4H PRN PRN Reason: Withdrawal Symptoms Lorazepam (Ativan) 2 mg IVPUSH Q4H PRN PRN Reason: Seizures Lorazepam (Ativan) 1 mg IV Q6H PRN PRN Reason: Anxiety Magnesium Sulfate (Pharmacy To Dose - Magnesium Replacement) 0 dose .XX ASDIRECTED PRN PRN Reason: RX TO WATCH MAG Metoprolol Tartrate (Lopressor) 5 mg IVPUSH Q4H PRN PRN Reason: Tachycardia Ondansetron HCl (Zofran) 4 mg IV Q6H PRN PRN Reason: Nausea/Vomiting Polyethylene Glycol (Miralax) 17 gm PO DAILY PRN PRN Reason: Constipation Potassium Chloride (Pharmacy To Dose - Potassium Replacement) 0 dose .XX ASDIRECTED PRN PRN Reason: RX TO WATCH K Senna/Docusate Sodium (Senna Plus) 1 tab PO BID PRN PRN Reason: Constipation Temazepam (Restoril) 15 mg PO BEDTIME PRN PRN Reason: Sleep Assessment/Plan Comment:: Assessment/Plan: Acute: Sepsis - 2/2 Severe Left Foot Infection - Tachycardia and WBC 33-->27K plus Infection - Received IV 2 Grams of IV Rocephin x1 in ED - Change antibiotic regimen to IV Vancomycin and Zosyn for pharmacy to dose Severe Left Foot Cellulitis With Significant Edema - 2/2 IV Drug Use - She is a known Meth user; last use was yesterday - She injects with re-used needle on her ankle - U/S shows report diffuse subcutaneous edema - CT scan report reads diffuse subcutaneous edema. No bony erosion to indicate osteomyelitis. No focal fluid collections of abscess are seen. - WBC 32.52--> 27.85; CRP 37.3 - Pain management plus NSAIDs - IV Antibiotic as above - PT/OT consult - Monitor for worsening of foot infection Chronic: Substance Abuse: Meth and Marijuana Nicotine Dependence, Counseled on Smoking Cessation Plan: Admit to [facility] Routine AM Labs SAC consult for substance abuse UA and UDS if not already done Nicotine Patch Daily Add Opioids for pain control; patient is a meth addict cannot expect to just control her pain with NSAIDs Ketorolac for anti-inflammatory agent GI/DVT PPx: H2B/Lovenox SubQ Daily PT/OT for assessment and evaluation SW/CM for d/c planning
[2018-09-18] MEDS ORDERED: cefTRIAXone 2 GM in Sodium Chloride 0.9% 100 ML IV SCH ×2 (12:00)
[2018-09-18] MEDS: Nicotine 21 MG/24 Hr Patch TRDERM SCH (13:56)
--- NOTE | 2018-09-18 16:26 | CT ---
CT left ankle Technique: Multiple axial sections through the left ankle were obtained. Intravenous contrast was utilized. Comparison: Previous ankle ultrasound study performed earlier on the same day (9:59 PM). Diffuse subcutaneous edema is seen around the ankle, most prominent laterally. No focal fluid collections are seen. No bony erosions are identified. Three calcifications are seen along the medial ankle compatible with old injury and dystrophic calcification. No soft tissue air is seen. Impression: 1. Diffuse subcutaneous edema. No bony erosion is seen to indicate osteomyelitis. No focal fluid collections of abscess are seen. 2. Other incidental findings as noted above. Diagnostic code #3 I agree with preliminary report from [facility], finalized on 09/18/18, 12:50 AM Central Time
--- NOTE | 2018-09-18 16:26 | US ---
Left ankle ultrasound: Multiple real-time images of the left ankle were obtained. Comparison: No previous study of this anatomy. Findings: Subcutaneous edema identified in area described as swelling/redness. No focal fluid collections to indicate abscess. No soft tissue mass is seen. Impression: 1. Diffuse subcutaneous edema. Diagnostic code #3 I agree with preliminary report from [facility], finalized on 09/17/18, 11:37 PM Central Time
[2018-09-18] MEDS ORDERED: Vancomycin 500 MG SDV IV SCH (19:00)
[2018-09-18] MEDS ORDERED: Piperacillin/Tazobactam 4.5 GM in Sodium Chloride 0.9% 100 ML IV ONE (19:15)
[2018-09-18] MEDS: Saccharomyces Boulardii (Probiotic) 250 MG Cap PO SCH (20:56)
[2018-09-18] MEDS: Famotidine 20 MG Tab PO SCH (20:56)
[2018-09-18] MEDS: HYDROmorphone 1 MG/ML Syringe IVPUSH PRN (21:06)
[2018-09-19] MEDS: Sodium Chloride 0.9% 1,000 ML IV SCH ×2 (02:23→15:30)
[2018-09-19] MEDS: Piperacillin/Tazobactam 4.5 GM in Sodium Chloride 0.9% 100 ML IV SCH ×4 (02:23→21:27)
[2018-09-19] MEDS: Ketorolac 30 MG/ML SDV IM PRN (02:24)
[2018-09-19] MEDS: HYDROmorphone 1 MG/ML Syringe IVPUSH PRN ×2 (08:24→20:11)
[2018-09-19] MEDS: Acetaminophen/HYDROcodone 325-5 MG Tab PO PRN ×3 (08:25→16:05)
[2018-09-19] MEDS: Nicotine 21 MG/24 Hr Patch TRDERM SCH (08:34)
[2018-09-19] MEDS: Saccharomyces Boulardii (Probiotic) 250 MG Cap PO SCH (08:35)
[2018-09-19] MEDS: Famotidine 20 MG Tab PO SCH (08:35)
[2018-09-19] MEDS: Enoxaparin 40 MG/0.4 ML Syringe SUBCUT SCH (08:35)
--- NOTE | 2018-09-19 09:30 | PCM.PN ---
- General Info Date of Service: 09/19/18 Admission Dx/Problem (Free Text): Admission Diagnosis/Problem Admission Diagnosis/Problem Cellulitis Subjective Update: Follow Up Functional Status: Reports: Pain Controlled, Tolerating Diet, Urinating, New Symptoms - Review of Systems General: Denies: Fever, Weakness, Fatigue, Malaise HEENT: Reports: No Symptoms Pulmonary: Denies: Shortness of Breath Cardiovascular: Denies: Chest Pain, Dyspnea on Exertion, Lightheadedness Gastrointestinal: Reports: Nausea, Vomiting. Denies: Abdominal Pain, Decreased Appetite, Diarrhea Genitourinary: Reports: No Symptoms Musculoskeletal: Reports: No Symptoms Skin: Denies: Cyanosis, Bruising Neurological: Reports: Difficulty Walking, Weakness, Gait Disturbance. Denies: Confusion Psychiatric: Denies: Depression, Anxiety, Agitation, Hallucinations Systems Review Comment:: Had an emesis last night and then again this morning during rounds. Her pain is controlled. Her WBC and CRP are improving. She is afebrile. Her K and Mg levels are mildly low. She is requesting some sort of a cream to use to make her needle track johnson go away on both hands. She does not think she is withdrawing from Meth. She states she would know and if she does very mild. However she states she had a hx/o heroin withdrawal in the past. - Patient Data Vitals - Most Recent: Last Vital Signs Temp 37.7 C 09/19/18 08:03 Pulse 96 09/19/18 08:03 Resp 14 09/19/18 08:03 BP 151/74 H 09/19/18 08:03 Pulse Ox 91 L 09/19/18 08:03 Weight - Most Recent: 78.97 kg I&O - Last 24 Hours: Intake & Output 09/18/18 09/19/18 09/19/18 22:59 06:59 14:59 Intake Total 2034 2270 Output Total 700 650 Balance 1334 1620 Lab Results Last 24 Hours: Laboratory Results - last 24 hr 09/18/18 09/18/18 09/18/18 Range/Units 11:05 16:03 18:00 WBC (3.98-10.04) K/mm3 RBC (3.98-5.22) M/mm3 Hgb (11.2-15.7) gm/L Hct (34.1-44.9) % MCV (79.4-94.8) fl MCH (25.6-32.2) pg MCHC (32.2-35.5) g/dl RDW Std Deviation (36.4-46.3) fL Plt Count (182-369) K/mm3 MPV (9.4-12.3) fl Neut % (Auto) (34.0-71.1) % Lymph % (Auto) (19.3-51.7) % [place] % (Auto) (4.7-12.5) % Eos % (Auto) (0.7-5.8) Baso % (Auto) (0.1-1.2) % Neut # (Auto) (1.56-6.13) K/mm3 Lymph # (Auto) (1.18-3.74) K/mm3 [place] # (Auto) (0.24-0.36) K/mm3 Eos # (Auto) (0.04-0.36) K/mm3 Baso # (Auto) (0.01-0.08) K/mm3 Manual Slide Review Sodium (136-145) mEq/L Potassium (3.5-5.1) mEq/L Chloride (98-107) mEq/L Carbon Dioxide (21-32) mEq/L Anion Gap (5-15) BUN (7-18) mg/dL Creatinine (0.55-1.02) mg/dL Est Cr Clr Drug Dosing mL/min Estimated GFR (MDRD) (>60) mL/min BUN/Creatinine Ratio (14-18) Glucose (74-106) mg/dL Calcium (8.5-10.1) mg/dL Magnesium (1.8-2.4) mg/dl C-Reactive Protein (<1.0) mg/dL Urine Color Yellow (Yellow) Urine Appearance Clear (Clear) Urine pH 6.5 (5.0-8.0) Ur Specific [place] 1.020 (1.005-1.030) Urine Protein 2+ H (Negative) Urine Glucose (UA) Trace H (Negative) Urine Ketones Trace H (Negative) Urine Occult Blood Negative (Negative) Urine Nitrite Negative (Negative) Urine Bilirubin 1+ H (Negative) Urine Urobilinogen >=8.0 H (0.2-1.0) Ur Leukocyte Esterase Negative (Negative) Urine RBC 0-5 (0-5) /hpf Urine WBC 0-5 (0-5) /hpf Ur Epithelial Cells Not Reportable Ur Squamous Epith Cells 5-10 H (0-5) /hpf Urine Bacteria Few (FEW) /hpf Urine Mucus Few (FEW) /hpf Urine Opiates Screen Presumptive positive H Presumptive positive H (CUTOFF= 100) Ur Buprenorphine Scrn Negative Negative (CUTOFF=10) Ur Oxycodone Screen Negative Negative (DTS4WS=897) Urine Methadone Screen Negative Negative (KCXPRZ=902) Ur Propoxyphene Screen Negative Negative (VOPRTH=691) Ur Barbiturates Screen Negative Negative (YEEYOH=704) Ur Tricyclics Screen Negative Negative (JSXKXW=981) Ur Phencyclidine Scrn Negative Negative (CUTOFF=25) Ur Amphetamine Screen Presumptive positive H Presumptive positive H (CUTOFF= 500) U Methamphetamines Scrn Presumptive positive H Presumptive positive H ( JRGCSM=693) U Benzodiazepines Scrn Presumptive positive H Presumptive positive H (CUTOFF =150) U Cocaine Metab Screen Negative Negative (DWSMYI=688) U Marijuana (THC) Screen Presumptive positive H Presumptive positive H ( CUTOFF=50) 09/19/18 09/19/18 Range/Units 06:25 06:25 WBC 20.21 H (3.98-10.04) K/mm3 RBC 3.56 L (3.98-5.22) M/mm3 Hgb 11.0 L (11.2-15.7) gm/L Hct 33.4 L (34.1-44.9) % MCV 93.8 (79.4-94.8) fl MCH 30.9 (25.6-32.2) pg MCHC 32.9 (32.2-35.5) g/dl RDW Std Deviation 41.4 (36.4-46.3) fL Plt Count 166 L (182-369) K/mm3 MPV 11.3 (9.4-12.3) fl Neut % (Auto) 85.4 H (34.0-71.1) % Lymph % (Auto) 8.5 L (19.3-51.7) % [place] % (Auto) 4.3 L (4.7-12.5) % Eos % (Auto) 1.4 (0.7-5.8) Baso % (Auto) 0.0 L (0.1-1.2) % Neut # (Auto) 17.24 H (1.56-6.13) K/mm3 Lymph # (Auto) 1.72 (1.18-3.74) K/mm3 [place] # (Auto) 0.87 H (0.24-0.36) K/mm3 Eos # (Auto) 0.29 (0.04-0.36) K/mm3 Baso # (Auto) 0.01 (0.01-0.08) K/mm3 Manual Slide Review Abnormal smear Sodium 138 (136-145) mEq/L Potassium 3.4 L (3.5-5.1) mEq/L Chloride 105 (98-107) mEq/L Carbon Dioxide 21 (21-32) mEq/L Anion Gap 15.4 H (5-15) BUN 6 L (7-18) mg/dL Creatinine 0.8 (0.55-1.02) mg/dL Est Cr Clr Drug Dosing 88.93 mL/min Estimated GFR (MDRD) > 60 (>60) mL/min BUN/Creatinine Ratio 7.5 L (14-18) Glucose 78 (74-106) mg/dL Calcium 8.4 L (8.5-10.1) mg/dL Magnesium 1.6 L (1.8-2.4) mg/dl C-Reactive Protein 34.6 H* (<1.0) mg/dL Urine Color (Yellow) Urine Appearance (Clear) Urine pH (5.0-8.0) Ur Specific [place] (1.005-1.030) Urine Protein (Negative) Urine Glucose (UA) (Negative) Urine Ketones (Negative) Urine Occult Blood (Negative) Urine Nitrite (Negative) Urine Bilirubin (Negative) Urine Urobilinogen (0.2-1.0) Ur Leukocyte Esterase (Negative) Urine RBC (0-5) /hpf Urine WBC (0-5) /hpf Ur Epithelial Cells Ur Squamous Epith Cells (0-5) /hpf Urine Bacteria (FEW) /hpf Urine Mucus (FEW) /hpf Urine Opiates Screen (JDJQDA=111) Ur Buprenorphine Scrn (CUTOFF=10) Ur Oxycodone Screen (ZYN8UT=349) Urine Methadone Screen (MYBBFP=959) Ur Propoxyphene Screen (TFSHDX=002) Ur Barbiturates Screen (ZTORWK=203) Ur Tricyclics Screen (KYKXTM=467) Ur Phencyclidine Scrn (CUTOFF=25) Ur Amphetamine Screen (LIRLRE=875) U Methamphetamines Scrn (JMPHUM=294) U Benzodiazepines Scrn (ZYZBWW=940) U Cocaine Metab Screen (FHUPBF=370) U Marijuana (THC) Screen (CUTOFF=50) Franco Results Last 24 Hours: Microbiology 09/17/18 23:00 Aerobic Blood Culture - Preliminary Blood - Venous NO GROWTH AFTER 1 DAY Anaerobic Blood Culture - Preliminary NO GROWTH AFTER 1 DAY 09/17/18 23:05 Aerobic Blood Culture - Preliminary Blood - Venous - Lab Draw NO GROWTH AFTER 1 DAY Anaerobic Blood Culture - Final Med Orders - Current: Current Medications Acetaminophen (Tylenol) 650 mg PO Q4H PRN PRN Reason: Pain (Mild 1-3)/fever Hydrocodone Bitart/Acetaminophen ([place] 325-5 Mg) 1 tab PO Q4H PRN PRN Reason: Pain Last Admin: 09/19/18 08:25 Dose: 1 tab Albuterol/Ipratropium (Duoneb 3.0-0.5 Mg/3 Ml) 3 ml NEB Q4H PRN PRN Reason: Shortness Of Breath/wheezing Bisacodyl (Dulcolax) 5 mg PO DAILY PRN PRN Reason: Constipation Docusate Sodium (Colace) 100 mg PO BID PRN PRN Reason: Constipation Enoxaparin Sodium (Lovenox) 40 mg SUBCUT DAILY [facility] Last Admin: 09/19/18 08:35 Dose: 40 mg Famotidine (Pepcid) 20 mg PO BID [facility] Last Admin: 09/19/18 08:35 Dose: 20 mg Hydralazine HCl (Apresoline) 20 mg IVPUSH Q4H PRN PRN Reason: Hypertension Hydromorphone HCl (Dilaudid) 0.5 mg IVPUSH Q6H PRN PRN Reason: Pain (severe 7-10) Last Admin: 09/19/18 08:24 Dose: 0.5 mg Sodium Chloride (Normal Saline) 1,000 mls @ 125 mls/hr IV ASDIRECTED [facility] Last Admin: 09/19/18 02:23 Dose: 125 mls/hr Piperacillin Sod/Tazobactam (Sod 4.5 gm/ Sodium Chloride) 100 mls @ 25 mls/hr IV Q8H [facility] Last Admin: 09/19/18 02:23 Dose: 25 mls/hr Vancomycin HCl 1 gm/ Sodium (Chloride) 250 mls @ 250 mls/hr IV Q8H [facility] Last Admin: 09/19/18 06:32 Dose: 250 mls/hr Ketorolac Tromethamine (Toradol) 30 mg IM Q6H PRN PRN Reason: Pain (moderate 4-6) Last Admin: 09/19/18 02:24 Dose: 30 mg Lorazepam (Ativan) 0.5 mg IVPUSH Q4H PRN PRN Reason: Withdrawal Symptoms Lorazepam (Ativan) 2 mg IVPUSH Q4H PRN PRN Reason: Seizures Lorazepam (Ativan) 1 mg IV Q6H PRN PRN Reason: Anxiety Magnesium Sulfate (Pharmacy To Dose - Magnesium Replacement) 0 dose .XX ASDIRECTED PRN PRN Reason: RX TO WATCH MAG Metoprolol Tartrate (Lopressor) 5 mg IVPUSH Q4H PRN PRN Reason: Tachycardia Miscellaneous Information (Remove Patch) 1 ea TRDERM DAILY [facility] Last Admin: 09/19/18 08:35 Dose: 1 ea Nicotine (Habitrol) 21 mg TRDERM DAILY [facility] Last Admin: 09/19/18 08:34 Dose: 21 mg Ondansetron HCl (Zofran) 4 mg IV Q6H PRN PRN Reason: Nausea/Vomiting Polyethylene Glycol (Miralax) 17 gm PO DAILY PRN PRN Reason: Constipation Potassium Chloride (Pharmacy To Dose - Potassium Replacement) 0 dose .XX ASDIRECTED PRN PRN Reason: RX TO WATCH K Saccharomyces Boulardii (Florastor) 250 mg PO BID [facility] Last Admin: 09/19/18 08:35 Dose: 250 mg Senna/Docusate Sodium (Senna Plus) 1 tab PO BID PRN PRN Reason: Constipation Temazepam (Restoril) 15 mg PO BEDTIME PRN PRN Reason: Sleep Vancomycin HCl (Pharmacy To Dose - Vancomycin) 1 dose .XX ASDIRECTED [facility] Discontinued Medications Famotidine (Pepcid) 20 mg IVPUSH ONETIME ONE Stop: 09/18/18 09:01 Last Admin: 09/18/18 09:20 Dose: 20 mg Hydromorphone HCl (Dilaudid) 0.5 mg IVPUSH ONETIME ONE Stop: 09/18/18 07:14 Last Admin: 09/18/18 07:27 Dose: 0.5 mg Ceftriaxone Sodium 2 gm/ (Sodium Chloride) 100 mls @ 200 mls/hr IV Q24H [facility] Last Admin: 09/17/18 23:53 Dose: 200 mls/hr Sodium Chloride (Normal Saline) Confirm Administered Dose 1,000 mls @ as directed .ROUTE .STK-MED ONE Stop: 09/18/18 01:15 Last Admin: 09/18/18 02:35 Dose: Not Given Ceftriaxone Sodium 2 gm/ (Sodium Chloride) 100 mls @ 200 mls/hr IV Q24H [facility] Last Admin: 09/18/18 11:47 Dose: 200 mls/hr Piperacillin Sod/Tazobactam (Sod 4.5 gm/ Sodium Chloride) 100 mls @ 200 mls/hr IV ONETIME ONE Stop: 09/18/18 19:44 Last Admin: 09/18/18 20:52 Dose: 200 mls/hr Iopamidol (Isovue-370 (76%)) 100 ml IV ONETIME ONE Stop: 09/17/18 22:27 Last Admin: 09/18/18 02:33 Dose: Not Given Ketorolac Tromethamine (Toradol) 60 mg IM ONETIME ONE Stop: 09/17/18 21:43 Last Admin: 09/17/18 21:47 Dose: 60 mg Ketorolac Tromethamine (Toradol) 60 mg IM ONETIME ONE Stop: 09/17/18 21:44 Last Admin: 09/17/18 21:49 Dose: Not Given Potassium Chloride (Klor-Con M20) 40 meq PO ONETIME ONE Stop: 09/18/18 09:16 Last Admin: 09/18/18 09:20 Dose: 40 meq Tramadol HCl (Ultram) 50 mg PO ONETIME ONE Stop: 09/17/18 21:44 Last Admin: 09/17/18 21:48 Dose: 50 mg Tramadol HCl (Ultram) 100 mg PO ONETIME ONE Stop: 09/17/18 21:44 Last Admin: 09/17/18 21:49 Dose: Not Given - Exam General: Alert, Oriented, Cooperative, No Acute Distress HEENT: Pupils Equal, Pupils Reactive, EOMI, Mucous Membr. Moist/[place] Neck: Supple, Trachea Midline Lungs: Clear to Auscultation, Normal Respiratory Effort Cardiovascular: Regular Rate, Regular Rhythm, No Murmurs GI/Abdominal Exam: Normal Bowel Sounds, Soft, Non-Tender, No Organomegaly, No Distention, No Abnormal Bruit, No Mass (Female) Exam: Deferred Back Exam: Normal Inspection, Full Range of Motion Extremities: Normal Inspection (right lower extremity), Normal Range of Motion ( right lower etxremity), Non-Tender, Pedal Edema (left lower extremity but improving), Limited Range of Motion (of the left ankle), Other (left ankle: some improvement with erythema and edema ) Peripheral Pulses: 2+: Posterior Tibial (R), Dorsalis Pedis (R) Skin: Warm, Dry, Intact, Other (tattoos on left upper thigh; right lower etremity near the ankle regiom, right upper extremity) Neurological: No New Focal Deficit (limited but grossly intact). No: Normal Gait Psy/Mental Status: Alert, Normal Affect, Normal Mood - Problem List Review Problem List Initiated/Reviewed/Updated: Yes - My Orders Last 24 Hours: My Active Orders 09/18/18 08:40 LORazepam [Ativan] 2 mg IVPUSH Q4H PRN Metoprolol Tartrate [Lopressor] 5 mg IVPUSH Q4H PRN hydrALAZINE [Apresoline] 20 mg IVPUSH Q4H PRN 09/18/18 08:42 Height and Weight [RC] 04 Intake and Output [RC] 04,16 VTE/DVT Education [RC] 09,21 Vital Signs [RC] Q4HR Consult to Case Management/Military Analyst [CONS] Routine Consult to Spiritual Care [CONS] Routine OT Evaluation and Treatment [CONS] Routine PT Evaluation and Treatment [CONS] Routine Acetaminophen [Tylenol] 650 mg PO Q4H PRN Albuterol/Ipratropium [DuoNeb 3.0-0.5 MG/3 ML] 3 ml NEB Q4H PRN Bisacodyl [Dulcolax] 5 mg PO DAILY PRN Docusate Sodium [Colace] 100 mg PO BID PRN Docusate Sodium/Sennosides [Senna Plus] 1 tab PO BID PRN HYDROmorphone [Dilaudid] 0.5 mg IVPUSH Q6H PRN Ketorolac [Toradol] 30 mg IM Q6H PRN LORazepam [Ativan] 1 mg IV Q6H PRN Ondansetron [Zofran] 4 mg IV Q6H PRN Polyethylene Glycol 3350 [MiraLAX] 17 gm PO DAILY PRN Temazepam [Restoril] 15 mg PO BEDTIME PRN 09/18/18 08:45 Pharmacy to Dose - Magnesium R [Pharmacy to Dose - Magnesium Replacement] 0 dose .XX ASDIRECTED PRN Pharmacy to Dose - Potassium R [Pharmacy to Dose - Potassium Replacement] 0 dose .XX ASDIRECTED PRN 09/18/18 09:00 Enoxaparin [Lovenox] 40 mg SUBCUT DAILY 09/18/18 14:00 Nicotine [Habitrol] 21 mg TRDERM DAILY 09/18/18 14:02 Consult for Substance Abuse [CONS] Routine Substance Abuse Education [OM.PC] Routine 09/18/18 16:03 AMPHET/METH EXT CONF (GCMS) Routine AMPHETAMINES, CONF, UR Routine BENZODIAZEPINES CONF, UR Routine CANNABINOID (THC) CONFIRM, UR Routine OXYCODONE SCREEN Routine 09/18/18 19:00 Pharmacy to Dose - Vancomycin 1 dose .XX ASDIRECTED 09/18/18 21:00 Famotidine [Pepcid] 20 mg PO BID Saccharomyces Boulardii [Florastor] 250 mg PO BID 09/18/18 22:00 Vancomycin 1 gm Sodium Chloride 0.9% [Normal Saline] 250 ml IV Q8H 09/18/18 Lunch General [Regular Diet] [DIET] 09/19/18 03:00 Piperacillin/Tazobactam [Piperacil-Tazobact] 4.5 gm Sodium Chloride 0.9% [ Normal Saline] 100 ml IV Q8H 09/19/18 09:00 Remove Patch 1 ea TRDERM DAILY 09/19/18 21:30 VANCOMYCIN TROUGH [CHEM] Timed 09/20/18 05:11 BASIC METABOLIC PANEL,BMP [CHEM] AM C-REACTIVE PROTEIN [CHEM] AM CBC WITH AUTO DIFF [HEME] AM MAGNESIUM [CHEM] AM 09/21/18 05:11 BASIC METABOLIC PANEL,BMP [CHEM] AM C-REACTIVE PROTEIN [CHEM] AM CBC WITH AUTO DIFF [HEME] AM MAGNESIUM [CHEM] AM 09/22/18 05:11 BASIC METABOLIC PANEL,BMP [CHEM] AM C-REACTIVE PROTEIN [CHEM] AM CBC WITH AUTO DIFF [HEME] AM MAGNESIUM [CHEM] AM - Plan Plan:: Assessment/Plan: Acute: Sepsis - 2/2 Severe Left Foot Infection - Tachycardia and WBC 33-->27K plus Infection - Received IV 2 Grams of IV Rocephin x1 in ED - So far blood culture for 1 day is negative - Change antibiotic regimen to IV Vancomycin and Zosyn for pharmacy to dose Severe Left Foot Cellulitis With Significant Edema - 2/2 IV Drug Use - She is a known Meth user; last use was yesterday - She injects with re-used needle on her ankle - U/S shows report diffuse subcutaneous edema - CT scan report reads diffuse subcutaneous edema. No bony erosion to indicate osteomyelitis. No focal fluid collections of abscess are seen. - WBC 32.52--> 27.85-->20.21; CRP 37.3-->34.6 - Pain management plus NSAIDs - IV Antibiotic as above - PT/OT consult - Monitor for worsening of foot infection E-lytes Abnormality - Hypokalemia and Hypomagnesemia - K 3.4 and Mg 1.6 - 2/2 inadequate intake; she has been sick lately - Replete and monitor Poly-Substance Abuse - Ampheth/Meth, Benzos and THC positive - SAC consult; patient refused - Counseled on substance abuse - SW consult Chronic: Substance Abuse: Meth and Marijuana Nicotine Dependence, Counseled on Smoking Cessation Plan: She is clinically much better Routine AM Labs SAC consult for substance abuse; patient refused UA negative for UTI Nicotine Patch Daily Topical Hydrocortisone cream for skin rash/itching PRN QID Vitamin E level and Vitamin E 400 mg po Daily x3 doses only for anti-oxidant and wound healing Add Opioids for pain control; patient is a meth addict cannot expect to just control her pain with NSAIDs Ketorolac for anti-inflammatory agent GI/DVT PPx: H2B/Lovenox SubQ Daily PT/OT for assessment and evaluation SW/CM for d/c planning
[2018-09-19] MEDS ORDERED: Scopolamine 1.5 MG Transdermal Patch TRDERM ONE (09:48)
[2018-09-19] MEDS ORDERED: Magnesium Sulfate/Water 2 GM in Premix Bag 1 BAG IV ONE (10:45)
[2018-09-19] MEDS: Potassium Chloride 20 MEQ Tab.ER PO SCH ×2 (12:08→15:30)
[2018-09-19] MEDS ORDERED: Hydrocortisone 1% Crm 30 GM Tube TOP PRN (12:32)
--- NOTE | 2018-09-19 19:17 | PCM.SN ---
- Free Text/Narrative Note: 1829 called to room 9 for IV access attempt multiple times 22ga. and 24ga good blood return on left hand middle finger 24ga secured and flushed out of room at 1914 report to RN
[2018-09-19] MEDS ORDERED: Midazolam 1 MG/ML 2 ML SDV IVPUSH ONE (20:25)
[2018-09-19] MEDS ORDERED: Lidocaine 1% 50 ML MDV INJECT ONE (20:26)
[2018-09-19] MEDS ORDERED: fentaNYL 100 MCG/2 ML SDV IVPUSH ONE (20:26)
[2018-09-19] MEDS ORDERED: Midazolam 1 MG/ML 2 ML SDV IM ONE (21:26)
[2018-09-19] MEDS ORDERED: fentaNYL 100 MCG/2 ML SDV IM ONE ×2 (21:26→22:50)
[2018-09-20] MEDS: Saccharomyces Boulardii (Probiotic) 250 MG Cap PO SCH ×3 (00:27→21:36)
[2018-09-20] MEDS: Acetaminophen/HYDROcodone 325-5 MG Tab PO PRN ×3 (00:27→22:01)
[2018-09-20] MEDS: Famotidine 20 MG Tab PO SCH ×3 (00:27→21:36)
[2018-09-20] MEDS: Ketorolac 30 MG/ML SDV IM PRN ×2 (00:34→08:40)
[2018-09-20] MEDS: Piperacillin/Tazobactam 4.5 GM in Sodium Chloride 0.9% 100 ML IV SCH ×3 (01:16→16:55)
--- NOTE | 2018-09-20 02:37 | PCM.PRNOTE ---
- Free Text/Narrative Note: I was asked to see this 27-year-old female in consultation in regards to placing a central line and she did not have adequate IV access due to continued intravenous drug abuse. A significant cellulitis infection in her left dorsal foot and leg. She did have a small IV in one of her arms but prior to my arrival that IV was identified to have an interstitial and was not functioning. My plan was to provide her with some degree of conscious sedation because she is very anxious and she needs to hold still for the procedure. I obtained consent for the procedure after talking with her at approximately 2130 hrs. Plan was to give her fentanyl 50 g IV and 2 mg of Versed IV for conscious sedation. Once we identified that the IV that she did have was no longer functioning and further attempts to start one also failed decision made to give her 4 mg of Versed IM and 100 g of fentanyl IM. Procedure was started at approximately 2205 hrs. It was done under sterile technique with mask sterile gloves and sterile drapes sterile gown and hair net. Incision made to use the right subclavian vein. Patient was placed in reverse Trendelenburg position and the area was prepped with Hibiclens 3. Identified appropriate landmarks and injected 1% lidocaine just inferior to the clavicle laterally. I obtained venous blood on the first stick and I was able to advance the guidewire easily. Of note I could not advance the guidewire with the J and first and therefore the guidewire was reversed to allow placement. After this I expressed a great deal of difficulty trying to place the dilator on the guidewire due to an the dilator coming in contact with the undersurface of the collarbone and the first rib. I tried 32 placed the dilator without any significant success. Patient required further sub-cutaneous lidocaine 1% buffered the pain. I then made a stab wound inferiorly to the guidewire. Is allowed me to move the guidewire approximately 4 mm caudad. I was then able to place the dilator with a great deal of resistance I then was able to place a triple-lumen 8 [place] catheter over the guidewire. Again this went in under a great deal of resistance due to meeting the first rib and the undersurface of the collarbone. I therefore decided to check position with an x-ray before removing the guidewire. Chest x- ray revealed the guidewire appeared to pass through the right side of the heart into the left ventricle. This is in spite of over half of the guidewire remaining outside of the insertion site. It suggested that the central venous catheter was in the superior vena cava. I was unable to remove the guidewire and repeat the chest x-ray which confirmed adequate placement. I was also able to withdraw blood easily and easily flushed all 3 ports with normal saline. Catheter was then sutured in 2 places to her low right upper anterior chest and right anterior shoulder. Patient did receive an additional 100 g of fentanyl IM prior to the level of the guidewire. This was as we were waiting for portable chest x-ray. Chest x-ray reveals no evidence of pneumothorax after the x-ray was done and reported to the nurses that they may start to use the catheter for IV fluid replacement and IV antibiotic and analgesia.
--- NOTE | 2018-09-20 07:41 | CR ---
Chest: Portable view of the chest was obtained. Comparison: Prior chest x-ray of 09/19/18 (10:55 PM). Guide wire has been replaced by subclavian catheter. Tip of subclavian catheter is within the superior vena cava. No pneumothorax is seen. Lungs are clear. Heart size and mediastinum are normal. Impression: 1. Right subclavian catheter in satisfactory position. 2. Nothing acute otherwise seen on supine portable chest x-ray. Diagnostic code #2
--- NOTE | 2018-09-20 07:41 | CR ---
Chest: Portable view of the chest was obtained. Comparison: Prior chest x-ray is not available. Guide wires entering from the subclavian approach is in place within tip located within the right ventricle. Heart size and mediastinum are within normal limits for supine technique. Lungs are clear. Bony structures are grossly intact. Impression: 1. Guide wire entering the right subclavian vein with tip lying within the right ventricle. 2. Nothing acute is otherwise seen. Diagnostic code #3
[2018-09-20] MEDS: Vitamin E (dl-alpha-tocopherol acetate) 400 Unit Cap PO SCH (08:45)
[2018-09-20] MEDS: Enoxaparin 40 MG/0.4 ML Syringe SUBCUT SCH (08:46)
[2018-09-20] MEDS: Nicotine 21 MG/24 Hr Patch TRDERM SCH (08:50)
--- NOTE | 2018-09-20 15:44 | PCM.PN ---
- General Info Date of Service: 09/20/18 Functional Status: Reports: Ambulating, Urinating - Review of Systems General: Reports: Weakness HEENT: Reports: No Symptoms Pulmonary: Reports: No Symptoms Cardiovascular: Reports: No Symptoms Gastrointestinal: Reports: No Symptoms Genitourinary: Reports: No Symptoms Musculoskeletal: Reports: No Symptoms Skin: Reports: No Symptoms Neurological: Reports: No Symptoms Psychiatric: Reports: No Symptoms - Patient Data Vitals - Most Recent: Last Vital Signs Temp 36.8 C 09/20/18 12:32 Pulse 93 09/20/18 12:33 Resp 18 09/20/18 12:33 BP 111/66 09/20/18 12:32 Pulse Ox 99 09/20/18 12:33 Weight - Most Recent: 81.42 kg I&O - Last 24 Hours: Intake & Output 09/20/18 09/20/18 09/20/18 06:59 14:59 22:59 Intake Total 950 Output Total 1200 Balance -250 Lab Results Last 24 Hours: Laboratory Results - last 24 hr 09/20/18 09/20/18 Range/Units 05:45 05:45 WBC 16.57 H (3.98-10.04) K/mm3 RBC 3.72 L (3.98-5.22) M/mm3 Hgb 11.5 (11.2-15.7) gm/L Hct 35.0 (34.1-44.9) % MCV 94.1 (79.4-94.8) fl MCH 30.9 (25.6-32.2) pg MCHC 32.9 (32.2-35.5) g/dl RDW Std Deviation 42.5 (36.4-46.3) fL Plt Count 197 (182-369) K/mm3 MPV 11.6 (9.4-12.3) fl Neut % (Auto) 79.5 H (34.0-71.1) % Lymph % (Auto) 11.7 L (19.3-51.7) % [place] % (Auto) 6.0 (4.7-12.5) % Eos % (Auto) 2.0 (0.7-5.8) Baso % (Auto) 0.1 (0.1-1.2) % Neut # (Auto) 13.16 H (1.56-6.13) K/mm3 Lymph # (Auto) 1.94 (1.18-3.74) K/mm3 [place] # (Auto) 1.00 H (0.24-0.36) K/mm3 Eos # (Auto) 0.33 (0.04-0.36) K/mm3 Baso # (Auto) 0.02 (0.01-0.08) K/mm3 Manual Slide Review Abnormal smear Sodium 140 (136-145) mEq/L Potassium 3.7 (3.5-5.1) mEq/L Chloride 106 (98-107) mEq/L Carbon Dioxide 23 (21-32) mEq/L Anion Gap 14.7 (5-15) BUN 6 L (7-18) mg/dL Creatinine 0.9 (0.55-1.02) mg/dL Est Cr Clr Drug Dosing 79.04 mL/min Estimated GFR (MDRD) > 60 (>60) mL/min BUN/Creatinine Ratio 6.7 L (14-18) Glucose 95 (74-106) mg/dL Calcium 8.6 (8.5-10.1) mg/dL Magnesium 2.1 (1.8-2.4) mg/dl C-Reactive Protein 25.4 H* (<1.0) mg/dL Franco Results Last 24 Hours: Microbiology 09/17/18 23:00 Aerobic Blood Culture - Preliminary Blood - Venous NO GROWTH AFTER 2 DAYS Anaerobic Blood Culture - Preliminary NO GROWTH AFTER 2 DAYS 09/17/18 23:05 Aerobic Blood Culture - Preliminary Blood - Venous - Lab Draw NO GROWTH AFTER 2 DAYS Anaerobic Blood Culture - Final Med Orders - Current: Current Medications Acetaminophen (Tylenol) 650 mg PO Q4H PRN PRN Reason: Pain (Mild 1-3)/fever Hydrocodone Bitart/Acetaminophen ([place] 325-5 Mg) 1 tab PO Q4H PRN PRN Reason: Pain Last Admin: 09/20/18 08:43 Dose: 1 tab Albuterol/Ipratropium (Duoneb 3.0-0.5 Mg/3 Ml) 3 ml NEB Q4H PRN PRN Reason: Shortness Of Breath/wheezing Bisacodyl (Dulcolax) 5 mg PO DAILY PRN PRN Reason: Constipation Docusate Sodium (Colace) 100 mg PO BID PRN PRN Reason: Constipation Enoxaparin Sodium (Lovenox) 40 mg SUBCUT DAILY [facility] Last Admin: 09/20/18 08:46 Dose: 40 mg Famotidine (Pepcid) 20 mg PO BID [facility] Last Admin: 09/20/18 08:46 Dose: 20 mg Hydralazine HCl (Apresoline) 20 mg IVPUSH Q4H PRN PRN Reason: Hypertension Hydrocortisone (Hydrocortisone 1% Crm) 0 gm TOP QID PRN PRN Reason: Rash/Itching Last Admin: 09/19/18 12:44 Dose: 1 applic Hydromorphone HCl (Dilaudid) 0.5 mg IVPUSH Q6H PRN PRN Reason: Pain (severe 7-10) Last Admin: 09/19/18 20:11 Dose: 0.5 mg Sodium Chloride (Normal Saline) 1,000 mls @ 50 mls/hr IV ASDIRECTED [facility] Last Admin: 09/19/18 15:30 Dose: 50 mls/hr Piperacillin Sod/Tazobactam (Sod 4.5 gm/ Sodium Chloride) 100 mls @ 25 mls/hr IV Q8H [facility] Last Admin: 09/20/18 08:47 Dose: 25 mls/hr Vancomycin HCl 1 gm/ Sodium (Chloride) 250 mls @ 250 mls/hr IV Q8H [facility] Last Admin: 09/20/18 10:48 Dose: 250 mls/hr Ketorolac Tromethamine (Toradol) 30 mg IVPUSH Q6H PRN PRN Reason: Pain (moderate 4-6) Lorazepam (Ativan) 0.5 mg IVPUSH Q4H PRN PRN Reason: Withdrawal Symptoms Lorazepam (Ativan) 2 mg IVPUSH Q4H PRN PRN Reason: Seizures Lorazepam (Ativan) 1 mg IV Q6H PRN PRN Reason: Anxiety Last Admin: 09/20/18 00:34 Dose: 1 mg Metoprolol Tartrate (Lopressor) 5 mg IVPUSH Q4H PRN PRN Reason: Tachycardia Miscellaneous Information (Remove Patch) 1 ea TRDERM DAILY [facility] Last Admin: 09/20/18 09:02 Dose: 1 ea Nicotine (Habitrol) 21 mg TRDERM DAILY [facility] Last Admin: 09/20/18 08:50 Dose: 21 mg Ondansetron HCl (Zofran) 4 mg IV Q6H PRN PRN Reason: Nausea/Vomiting Last Admin: 09/19/18 09:52 Dose: 4 mg Polyethylene Glycol (Miralax) 17 gm PO DAILY PRN PRN Reason: Constipation Saccharomyces Boulardii (Florastor) 250 mg PO BID [facility] Last Admin: 09/20/18 08:45 Dose: 250 mg Senna/Docusate Sodium (Senna Plus) 1 tab PO BID PRN PRN Reason: Constipation Temazepam (Restoril) 15 mg PO BEDTIME PRN PRN Reason: Sleep Vancomycin HCl (Pharmacy To Dose - Vancomycin) 0 dose .XX ASDIRECTED PRN PRN Reason: RX TO DOSE VANCO Vitamin E (Vitamin E) 400 units PO DAILY [facility] Stop: 09/22/18 09:01 Last Admin: 09/20/18 08:45 Dose: 400 units Discontinued Medications Famotidine (Pepcid) 20 mg IVPUSH ONETIME ONE Stop: 09/18/18 09:01 Last Admin: 09/18/18 09:20 Dose: 20 mg Fentanyl (Sublimaze) 100 mcg IVPUSH ONETIME ONE Stop: 09/19/18 20:27 Last Admin: 09/20/18 01:07 Dose: Not Given Fentanyl (Sublimaze) 100 mcg IM STAT ONE Stop: 09/19/18 21:27 Last Admin: 09/19/18 21:38 Dose: 100 mcg Fentanyl (Sublimaze) 100 mcg IM ONETIME ONE Stop: 09/19/18 22:51 Last Admin: 09/19/18 22:59 Dose: 100 mcg Hydromorphone HCl (Dilaudid) 0.5 mg IVPUSH ONETIME ONE Stop: 09/18/18 07:14 Last Admin: 09/18/18 07:27 Dose: 0.5 mg Ceftriaxone Sodium 2 gm/ (Sodium Chloride) 100 mls @ 200 mls/hr IV Q24H [facility] Last Admin: 09/17/18 23:53 Dose: 200 mls/hr Sodium Chloride (Normal Saline) Confirm Administered Dose 1,000 mls @ as directed .ROUTE .STK-MED ONE Stop: 09/18/18 01:15 Last Admin: 09/18/18 02:35 Dose: Not Given Sodium Chloride (Normal Saline) 1,000 mls @ 125 mls/hr IV ASDIRECTED [facility] Last Admin: 09/19/18 02:23 Dose: 125 mls/hr Ceftriaxone Sodium 2 gm/ (Sodium Chloride) 100 mls @ 200 mls/hr IV Q24H [facility] Last Admin: 09/18/18 11:47 Dose: 200 mls/hr Piperacillin Sod/Tazobactam (Sod 4.5 gm/ Sodium Chloride) 100 mls @ 25 mls/hr IV Q8H [facility] Last Admin: 09/19/18 21:27 Dose: Not Given Piperacillin Sod/Tazobactam (Sod 4.5 gm/ Sodium Chloride) 100 mls @ 200 mls/hr IV ONETIME ONE Stop: 09/18/18 19:44 Last Admin: 09/18/18 20:52 Dose: 200 mls/hr Vancomycin HCl 1 gm/ Sodium (Chloride) 250 mls @ 250 mls/hr IV Q8H [facility] Last Admin: 09/19/18 21:28 Dose: Not Given Magnesium Sulfate 2 gm/ Premix 50 mls @ 25 mls/hr IV ONETIME ONE Stop: 09/19/18 12:44 Last Admin: 09/19/18 12:08 Dose: 25 mls/hr Vancomycin HCl 1 gm/ Sodium (Chloride) 250 mls @ 250 mls/hr IV Q8H [facility] Last Admin: 09/20/18 01:38 Dose: Not Given Iopamidol (Isovue-370 (76%)) 100 ml IV ONETIME ONE Stop: 09/17/18 22:27 Last Admin: 09/18/18 02:33 Dose: Not Given Ketorolac Tromethamine (Toradol) 60 mg IM ONETIME ONE Stop: 09/17/18 21:43 Last Admin: 09/17/18 21:47 Dose: 60 mg Ketorolac Tromethamine (Toradol) 60 mg IM ONETIME ONE Stop: 09/17/18 21:44 Last Admin: 09/17/18 21:49 Dose: Not Given Ketorolac Tromethamine (Toradol) 30 mg IM Q6H PRN PRN Reason: Pain (moderate 4-6) Last Admin: 09/20/18 08:40 Dose: 30 mg Lidocaine HCl (Xylocaine 1%) 10 ml INJECT ONETIME ONE Stop: 09/19/18 20:27 Last Admin: 09/19/18 23:02 Dose: 10 ml Magnesium Sulfate (Pharmacy To Dose - Magnesium Replacement) 0 dose .XX ASDIRECTED PRN PRN Reason: RX TO WATCH MAG Midazolam HCl (Versed 1 Mg/Ml) 5 mg IVPUSH ONETIME ONE Stop: 09/19/18 20:26 Last Admin: 09/20/18 01:06 Dose: Not Given Midazolam HCl (Versed 1 Mg/Ml) 4 mg IM STAT ONE Stop: 09/19/18 21:27 Last Admin: 09/19/18 21:36 Dose: 4 mg Potassium Chloride (Pharmacy To Dose - Potassium Replacement) 0 dose .XX ASDIRECTED PRN PRN Reason: RX TO WATCH K Potassium Chloride (Klor-Con M20) 40 meq PO ONETIME ONE Stop: 09/18/18 09:16 Last Admin: 09/18/18 09:20 Dose: 40 meq Potassium Chloride (Klor-Con M20) 40 meq PO Q4H [facility] Stop: 09/19/18 14:46 Last Admin: 09/19/18 15:30 Dose: 40 meq Scopolamine (Transderm-Scop) 1.5 mg TRDERM Q72H ONE Stop: 09/19/18 09:49 Last Admin: 09/19/18 10:16 Dose: 1.5 mg Tramadol HCl (Ultram) 50 mg PO ONETIME ONE Stop: 09/17/18 21:44 Last Admin: 09/17/18 21:48 Dose: 50 mg Tramadol HCl (Ultram) 100 mg PO ONETIME ONE Stop: 09/17/18 21:44 Last Admin: 09/17/18 21:49 Dose: Not Given - Exam Quality Assessment: Central Line/PICC, DVT Prophylaxis General: Alert, Oriented, No Acute Distress HEENT: Pupils Equal, Pupils Reactive, EOMI Neck: Trachea Midline, No JVD Lungs: Normal Respiratory Effort Cardiovascular: Regular Rate, Regular Rhythm GI/Abdominal Exam: Normal Bowel Sounds, Soft, Non-Tender, No Organomegaly, No Distention (Female) Exam: Deferred Back Exam: Normal Inspection Extremities: Normal Inspection, Non-Tender, Normal Capillary Refill Skin: Warm Neurological: No New Focal Deficit Psy/Mental Status: Alert, Anxious - Problem List Review Problem List Initiated/Reviewed/Updated: Yes - Plan Plan:: Assessment/Plan: Acute: Sepsis - 2/2 Severe Left Foot Infection - Tachycardia and WBC 33-->27K plus Infection - Received IV 2 Grams of IV Rocephin x1 in ED - So far blood culture for 1 day is negative - Change antibiotic regimen to IV Vancomycin and Zosyn for pharmacy to dose Severe Left Foot Cellulitis With Significant Edema - 2/2 IV Drug Use - She is a known Meth user; last use was yesterday - She injects with re-used needle on her ankle - U/S shows report diffuse subcutaneous edema - CT scan report reads diffuse subcutaneous edema. No bony erosion to indicate osteomyelitis. No focal fluid collections of abscess are seen. - WBC 32.52--> 27.85-->20.21; CRP 37.3-->34.6 - Pain management plus NSAIDs - IV Antibiotic as above - PT/OT consult - Monitor for worsening of foot infection E-lytes Abnormality - Hypokalemia and Hypomagnesemia - K 3.4 and Mg 1.6 - 2/2 inadequate intake; she has been sick lately - Replete and monitor Poly-Substance Abuse - Ampheth/Meth, Benzos and THC positive - SAC consult; patient refused - Counseled on substance abuse - SW consult Chronic: Substance Abuse: Meth and Marijuana Nicotine Dependence, Counseled on Smoking Cessation Plan: She is clinically much better Routine AM Labs SAC consult for substance abuse; patient refused UA negative for UTI Nicotine Patch Daily Topical Hydrocortisone cream for skin rash/itching PRN QID Vitamin E level and Vitamin E 400 mg po Daily x3 doses only for anti-oxidant and wound healing Add Opioids for pain control; patient is a meth addict cannot expect to just control her pain with NSAIDs Ketorolac for anti-inflammatory agent GI/DVT PPx: H2B/Lovenox SubQ Daily PT/OT for assessment and evaluation SW/ for d/c planning
[2018-09-20] MEDS: Ketorolac 30 MG/ML SDV IVPUSH PRN (16:32)
[2018-09-20] MEDS: Sodium Chloride 0.9% 1,000 ML IV SCH (17:08)
[2018-09-21] MEDS: Piperacillin/Tazobactam 4.5 GM in Sodium Chloride 0.9% 100 ML IV SCH ×3 (00:29→18:07)
[2018-09-21] MEDS: Ketorolac 30 MG/ML SDV IVPUSH PRN ×3 (00:37→21:33)
[2018-09-21] MEDS ORDERED: Vancomycin 1 GM, Vancomycin 250 MG in Sodium Chloride 0.9% 500 ML IV SCH (03:00)
[2018-09-21] MEDS: Acetaminophen/HYDROcodone 325-5 MG Tab PO PRN ×4 (06:45→21:34)
[2018-09-21] MEDS: Famotidine 20 MG Tab PO SCH ×2 (09:16→21:35)
[2018-09-21] MEDS: Saccharomyces Boulardii (Probiotic) 250 MG Cap PO SCH ×2 (09:16→21:34)
[2018-09-21] MEDS: Nicotine 21 MG/24 Hr Patch TRDERM SCH (09:16)
[2018-09-21] MEDS: Vitamin E (dl-alpha-tocopherol acetate) 400 Unit Cap PO SCH (09:16)
[2018-09-21] MEDS: Enoxaparin 40 MG/0.4 ML Syringe SUBCUT SCH (09:17)
[2018-09-21] MEDS: Vancomycin 1 GM, Vancomycin 250 MG in Sodium Chloride 0.9% 250 ML IV SCH ×2 (11:10→18:52)
[2018-09-21] MEDS: Sodium Chloride 0.9% 1,000 ML IV SCH (12:27)
[2018-09-21] MEDS ORDERED: Magnesium Sulfate/Water 2 GM in Premix Bag 1 BAG IV ONE (13:17)
--- NOTE | 2018-09-21 13:25 | PCM.PN ---
- General Info Date of Service: 09/21/18 Functional Status: Reports: Pain Controlled, Tolerating Diet, Ambulating, Urinating - Review of Systems General: Reports: Weakness HEENT: Reports: No Symptoms Pulmonary: Reports: No Symptoms Cardiovascular: Reports: No Symptoms Gastrointestinal: Reports: No Symptoms Genitourinary: Reports: No Symptoms Musculoskeletal: Reports: No Symptoms Skin: Reports: No Symptoms Neurological: Reports: No Symptoms Psychiatric: Reports: No Symptoms - Patient Data Vitals - Most Recent: Last Vital Signs Temp 36.7 C 09/21/18 11:09 Pulse 84 09/21/18 11:09 Resp 15 09/21/18 11:09 BP 101/54 L 09/21/18 11:09 Pulse Ox 94 L 09/21/18 11:09 Weight - Most Recent: 82.735 kg I&O - Last 24 Hours: Intake & Output 09/20/18 09/21/18 09/21/18 22:59 06:59 14:59 Intake Total 1620 1499 120 Output Total 800 750 Balance 820 749 120 Lab Results Last 24 Hours: Laboratory Results - last 24 hr 09/20/18 09/21/18 09/21/18 Range/Units 17:45 01:30 06:24 WBC 15.15 H (3.98-10.04) K/mm3 RBC 3.59 L (3.98-5.22) M/mm3 Hgb 11.0 L (11.2-15.7) gm/L Hct 33.6 L (34.1-44.9) % MCV 93.6 (79.4-94.8) fl MCH 30.6 (25.6-32.2) pg MCHC 32.7 (32.2-35.5) g/dl RDW Std Deviation 41.9 (36.4-46.3) fL Plt Count 183 (182-369) K/mm3 MPV 11.2 (9.4-12.3) fl Neut % (Auto) 72.9 H (34.0-71.1) % Lymph % (Auto) 15.0 L (19.3-51.7) % [place] % (Auto) 8.2 (4.7-12.5) % Eos % (Auto) 1.7 (0.7-5.8) Baso % (Auto) 0.3 (0.1-1.2) % Neut # (Auto) 11.06 H (1.56-6.13) K/mm3 Lymph # (Auto) 2.27 (1.18-3.74) K/mm3 [place] # (Auto) 1.24 H (0.24-0.36) K/mm3 Eos # (Auto) 0.25 (0.04-0.36) K/mm3 Baso # (Auto) 0.04 (0.01-0.08) K/mm3 Manual Slide Review Abnormal smear Sodium (136-145) mEq/L Potassium (3.5-5.1) mEq/L Chloride (98-107) mEq/L Carbon Dioxide (21-32) mEq/L Anion Gap (5-15) BUN (7-18) mg/dL Creatinine (0.55-1.02) mg/dL Est Cr Clr Drug Dosing mL/min Estimated GFR (MDRD) (>60) mL/min BUN/Creatinine Ratio (14-18) Glucose (74-106) mg/dL Calcium (8.5-10.1) mg/dL Magnesium (1.8-2.4) mg/dl C-Reactive Protein (<1.0) mg/dL Vancomycin Trough 46.8 H 11.4 (10.0-20.0) 09/21/18 Range/Units 06:24 WBC (3.98-10.04) K/mm3 RBC (3.98-5.22) M/mm3 Hgb (11.2-15.7) gm/L Hct (34.1-44.9) % MCV (79.4-94.8) fl MCH (25.6-32.2) pg MCHC (32.2-35.5) g/dl RDW Std Deviation (36.4-46.3) fL Plt Count (182-369) K/mm3 MPV (9.4-12.3) fl Neut % (Auto) (34.0-71.1) % Lymph % (Auto) (19.3-51.7) % [place] % (Auto) (4.7-12.5) % Eos % (Auto) (0.7-5.8) Baso % (Auto) (0.1-1.2) % Neut # (Auto) (1.56-6.13) K/mm3 Lymph # (Auto) (1.18-3.74) K/mm3 [place] # (Auto) (0.24-0.36) K/mm3 Eos # (Auto) (0.04-0.36) K/mm3 Baso # (Auto) (0.01-0.08) K/mm3 Manual Slide Review Sodium 140 (136-145) mEq/L Potassium 3.7 (3.5-5.1) mEq/L Chloride 105 (98-107) mEq/L Carbon Dioxide 25 (21-32) mEq/L Anion Gap 13.7 (5-15) BUN 6 L (7-18) mg/dL Creatinine 0.8 (0.55-1.02) mg/dL Est Cr Clr Drug Dosing 88.93 mL/min Estimated GFR (MDRD) > 60 (>60) mL/min BUN/Creatinine Ratio 7.5 L (14-18) Glucose 80 (74-106) mg/dL Calcium 8.3 L (8.5-10.1) mg/dL Magnesium 1.9 (1.8-2.4) mg/dl C-Reactive Protein 24.1 H* (<1.0) mg/dL Vancomycin Trough (10.0-20.0) Franco Results Last 24 Hours: Microbiology 09/17/18 23:00 Aerobic Blood Culture - Preliminary Blood - Venous NO GROWTH AFTER 3 DAYS Anaerobic Blood Culture - Preliminary NO GROWTH AFTER 3 DAYS 09/17/18 23:05 Aerobic Blood Culture - Preliminary Blood - Venous - Lab Draw NO GROWTH AFTER 3 DAYS Anaerobic Blood Culture - Final Med Orders - Current: Current Medications Acetaminophen (Tylenol) 650 mg PO Q4H PRN PRN Reason: Pain (Mild 1-3)/fever Hydrocodone Bitart/Acetaminophen ([place] 325-5 Mg) 1 tab PO Q4H PRN PRN Reason: Pain Last Admin: 09/21/18 11:19 Dose: 1 tab Albuterol/Ipratropium (Duoneb 3.0-0.5 Mg/3 Ml) 3 ml NEB Q4H PRN PRN Reason: Shortness Of Breath/wheezing Bisacodyl (Dulcolax) 5 mg PO DAILY PRN PRN Reason: Constipation Docusate Sodium (Colace) 100 mg PO BID PRN PRN Reason: Constipation Enoxaparin Sodium (Lovenox) 40 mg SUBCUT DAILY [facility] Last Admin: 09/21/18 09:17 Dose: 40 mg Famotidine (Pepcid) 20 mg PO BID [facility] Last Admin: 09/21/18 09:16 Dose: 20 mg Hydralazine HCl (Apresoline) 20 mg IVPUSH Q4H PRN PRN Reason: Hypertension Hydrocortisone (Hydrocortisone 1% Crm) 0 gm TOP QID PRN PRN Reason: Rash/Itching Last Admin: 09/19/18 12:44 Dose: 1 applic Hydromorphone HCl (Dilaudid) 0.5 mg IVPUSH Q6H PRN PRN Reason: Pain (severe 7-10) Last Admin: 09/19/18 20:11 Dose: 0.5 mg Sodium Chloride (Normal Saline) 1,000 mls @ 50 mls/hr IV ASDIRECTED [facility] Last Admin: 09/21/18 12:27 Dose: 50 mls/hr Piperacillin Sod/Tazobactam (Sod 4.5 gm/ Sodium Chloride) 100 mls @ 25 mls/hr IV Q8H [facility] Last Admin: 09/21/18 09:17 Dose: 25 mls/hr Vancomycin HCl 1 gm/Vancomycin HCl 250 mg/ Sodium Chloride 250 mls @ 166.667 mls/hr IV Q8H [facility] Last Admin: 09/21/18 11:10 Dose: 166.667 mls/hr Magnesium Sulfate 2 gm/ Premix 50 mls @ 25 mls/hr IV ONETIME ONE Stop: 09/21/18 15:16 Ketorolac Tromethamine (Toradol) 30 mg IVPUSH Q6H PRN PRN Reason: Pain (moderate 4-6) Last Admin: 09/21/18 06:45 Dose: 30 mg Lorazepam (Ativan) 0.5 mg IVPUSH Q4H PRN PRN Reason: Withdrawal Symptoms Lorazepam (Ativan) 2 mg IVPUSH Q4H PRN PRN Reason: Seizures Lorazepam (Ativan) 1 mg IV Q6H PRN PRN Reason: Anxiety Last Admin: 09/20/18 00:34 Dose: 1 mg Metoprolol Tartrate (Lopressor) 5 mg IVPUSH Q4H PRN PRN Reason: Tachycardia Miscellaneous Information (Remove Patch) 1 ea KT DAILY [facility] Last Admin: 09/21/18 09:18 Dose: 1 ea Nicotine (Habitrol) 21 mg TRDERM DAILY [facility] Last Admin: 09/21/18 09:16 Dose: 21 mg Ondansetron HCl (Zofran) 4 mg IV Q6H PRN PRN Reason: Nausea/Vomiting Last Admin: 09/19/18 09:52 Dose: 4 mg Polyethylene Glycol (Miralax) 17 gm PO DAILY PRN PRN Reason: Constipation Saccharomyces Boulardii (Florastor) 250 mg PO BID [facility] Last Admin: 09/21/18 09:16 Dose: 250 mg Senna/Docusate Sodium (Senna Plus) 1 tab PO BID PRN PRN Reason: Constipation Temazepam (Restoril) 15 mg PO BEDTIME PRN PRN Reason: Sleep Vancomycin HCl (Pharmacy To Dose - Vancomycin) 0 dose .XX ASDIRECTED PRN PRN Reason: RX TO DOSE VANCO Vitamin E (Vitamin E) 400 units PO DAILY [facility] Stop: 09/22/18 09:01 Last Admin: 09/21/18 09:16 Dose: 400 units Discontinued Medications Famotidine (Pepcid) 20 mg IVPUSH ONETIME ONE Stop: 09/18/18 09:01 Last Admin: 09/18/18 09:20 Dose: 20 mg Fentanyl (Sublimaze) 100 mcg IVPUSH ONETIME ONE Stop: 09/19/18 20:27 Last Admin: 09/20/18 01:07 Dose: Not Given Fentanyl (Sublimaze) 100 mcg IM STAT ONE Stop: 09/19/18 21:27 Last Admin: 09/19/18 21:38 Dose: 100 mcg Fentanyl (Sublimaze) 100 mcg IM ONETIME ONE Stop: 09/19/18 22:51 Last Admin: 09/19/18 22:59 Dose: 100 mcg Hydromorphone HCl (Dilaudid) 0.5 mg IVPUSH ONETIME ONE Stop: 09/18/18 07:14 Last Admin: 09/18/18 07:27 Dose: 0.5 mg Ceftriaxone Sodium 2 gm/ (Sodium Chloride) 100 mls @ 200 mls/hr IV Q24H [facility] Last Admin: 09/17/18 23:53 Dose: 200 mls/hr Sodium Chloride (Normal Saline) Confirm Administered Dose 1,000 mls @ as directed .ROUTE .STK-MED ONE Stop: 09/18/18 01:15 Last Admin: 09/18/18 02:35 Dose: Not Given Sodium Chloride (Normal Saline) 1,000 mls @ 125 mls/hr IV ASDIRECTED [facility] Last Admin: 09/19/18 02:23 Dose: 125 mls/hr Ceftriaxone Sodium 2 gm/ (Sodium Chloride) 100 mls @ 200 mls/hr IV Q24H [facility] Last Admin: 09/18/18 11:47 Dose: 200 mls/hr Piperacillin Sod/Tazobactam (Sod 4.5 gm/ Sodium Chloride) 100 mls @ 25 mls/hr IV Q8H [facility] Last Admin: 09/19/18 21:27 Dose: Not Given Piperacillin Sod/Tazobactam (Sod 4.5 gm/ Sodium Chloride) 100 mls @ 200 mls/hr IV ONETIME ONE Stop: 09/18/18 19:44 Last Admin: 09/18/18 20:52 Dose: 200 mls/hr Vancomycin HCl 1 gm/ Sodium (Chloride) 250 mls @ 250 mls/hr IV Q8H [facility] Last Admin: 09/19/18 21:28 Dose: Not Given Magnesium Sulfate 2 gm/ Premix 50 mls @ 25 mls/hr IV ONETIME ONE Stop: 09/19/18 12:44 Last Admin: 09/19/18 12:08 Dose: 25 mls/hr Vancomycin HCl 1 gm/ Sodium (Chloride) 250 mls @ 250 mls/hr IV Q8H [facility] Last Admin: 09/20/18 01:38 Dose: Not Given Vancomycin HCl 1 gm/ Sodium (Chloride) 250 mls @ 250 mls/hr IV Q8H [facility] Last Admin: 09/21/18 02:49 Dose: Not Given Vancomycin HCl 1 gm/Vancomycin HCl 250 mg/ Sodium Chloride 500 mls @ 333.333 mls/hr IV Q8H [facility] Last Admin: 09/21/18 03:09 Dose: 250 mls/hr Iopamidol (Isovue-370 (76%)) 100 ml IV ONETIME ONE Stop: 09/17/18 22:27 Last Admin: 09/18/18 02:33 Dose: Not Given Ketorolac Tromethamine (Toradol) 60 mg IM ONETIME ONE Stop: 09/17/18 21:43 Last Admin: 09/17/18 21:47 Dose: 60 mg Ketorolac Tromethamine (Toradol) 60 mg IM ONETIME ONE Stop: 09/17/18 21:44 Last Admin: 09/17/18 21:49 Dose: Not Given Ketorolac Tromethamine (Toradol) 30 mg IM Q6H PRN PRN Reason: Pain (moderate 4-6) Last Admin: 09/20/18 08:40 Dose: 30 mg Lidocaine HCl (Xylocaine 1%) 10 ml INJECT ONETIME ONE Stop: 09/19/18 20:27 Last Admin: 09/19/18 23:02 Dose: 10 ml Magnesium Sulfate (Pharmacy To Dose - Magnesium Replacement) 0 dose .XX ASDIRECTED PRN PRN Reason: RX TO WATCH MAG Midazolam HCl (Versed 1 Mg/Ml) 5 mg IVPUSH ONETIME ONE Stop: 09/19/18 20:26 Last Admin: 09/20/18 01:06 Dose: Not Given Midazolam HCl (Versed 1 Mg/Ml) 4 mg IM STAT ONE Stop: 09/19/18 21:27 Last Admin: 09/19/18 21:36 Dose: 4 mg Potassium Chloride (Pharmacy To Dose - Potassium Replacement) 0 dose .XX ASDIRECTED PRN PRN Reason: RX TO WATCH K Potassium Chloride (Klor-Con M20) 40 meq PO ONETIME ONE Stop: 09/18/18 09:16 Last Admin: 09/18/18 09:20 Dose: 40 meq Potassium Chloride (Klor-Con M20) 40 meq PO Q4H [facility] Stop: 09/19/18 14:46 Last Admin: 09/19/18 15:30 Dose: 40 meq Scopolamine (Transderm-Scop) 1.5 mg TRDERM Q72H [facility] Stop: 09/19/18 09:49 Last Admin: 09/19/18 10:16 Dose: 1.5 mg Tramadol HCl (Ultram) 50 mg PO ONETIME ONE Stop: 09/17/18 21:44 Last Admin: 09/17/18 21:48 Dose: 50 mg Tramadol HCl (Ultram) 100 mg PO ONETIME ONE Stop: 09/17/18 21:44 Last Admin: 09/17/18 21:49 Dose: Not Given - Exam Quality Assessment: Central Line/PICC, DVT Prophylaxis General: Alert, Oriented, Cooperative, No Acute Distress HEENT: Pupils Equal, Pupils Reactive, EOMI Neck: Supple, Trachea Midline, No JVD Lungs: Clear to Auscultation, Normal Respiratory Effort Cardiovascular: Regular Rate, Regular Rhythm GI/Abdominal Exam: Normal Bowel Sounds, Soft, Non-Tender, No Organomegaly, No Distention (Female) Exam: Deferred Back Exam: Normal Inspection Extremities: Non-Tender, Normal Capillary Refill, Pedal Edema (L>R) Skin: Warm Neurological: No New Focal Deficit Psy/Mental Status: Alert, Anxious - Problem List Review Problem List Initiated/Reviewed/Updated: Yes - My Orders Last 24 Hours: My Active Orders 09/21/18 11:00 Vancomycin 1 gm Vancomycin 250 mg Sodium Chloride 0.9% [Normal Saline] 250 ml IV Q8H 09/21/18 13:07 Foot 2V Lt [CR] Routine 09/21/18 13:17 Magnesium Sulfate/Water [Magnesium Sulfate 2 GM in Water 50 ML] 2 gm Premix Bag 1 bag IV ONETIME - Plan Plan:: Assessment/Plan: Acute: Sepsis - 2/2 Severe Left Foot Infection - Tachycardia and WBC 33-->27K plus Infection - Received IV 2 Grams of IV Rocephin x1 in ED - So far blood culture for 1 day is negative - Change antibiotic regimen to IV Vancomycin and Zosyn for pharmacy to dose Severe Left Foot Cellulitis With Significant Edema - 2/2 IV Drug Use - She is a known Meth user; last use was yesterday - She injects with re-used needle on her ankle - U/S shows report diffuse subcutaneous edema - CT scan report reads diffuse subcutaneous edema. No bony erosion to indicate osteomyelitis. No focal fluid collections of abscess are seen. - WBC 32.52--> 27.85-->20.21; CRP 37.3-->34.6 - Pain management plus NSAIDs - IV Antibiotic as above - PT/OT consult - Monitor for worsening of foot infection E-lytes Abnormality - Hypokalemia and Hypomagnesemia - K 3.4 and Mg 1.6 - 2/2 inadequate intake; she has been sick lately - Replete and monitor Poly-Substance Abuse - Ampheth/Meth, Benzos and THC positive - SAC consult; patient refused - Counseled on substance abuse - SW consult Chronic: Substance Abuse: Meth and Marijuana Nicotine Dependence, Counseled on Smoking Cessation Plan: She is clinically much better Routine AM Labs SAC consult for substance abuse; patient refused UA negative for UTI Nicotine Patch Daily Topical Hydrocortisone cream for skin rash/itching PRN QID Vitamin E level and Vitamin E 400 mg po Daily x3 doses only for anti-oxidant and wound healing Add Opioids for pain control; patient is a meth addict cannot expect to just control her pain with NSAIDs Ketorolac for anti-inflammatory agent GI/DVT PPx: H2B/Lovenox SubQ Daily PT/OT for assessment and evaluation SW/CM for d/c planning Patient refused [facility]; will also attempt psychiatric treatment Foot X Ray--left.
--- NOTE | 2018-09-21 13:57 | CR ---
Left foot: Two views of the left foot were obtained. Comparison: Prior left ankle CT study of 09/17/18. Diffuse soft tissue swelling is again noted. Joint spaces are maintained. Minimal spur at the attachment of the Achilles tendon to the calcaneus is noted. No acute fracture or acute erosion is seen. Impression: 1. Soft tissue swelling. 2. Incidental calcaneal spur. 3. No acute bony abnormality is identified on two-view left foot study. Diagnostic code #3
[2018-09-22] MEDS: Piperacillin/Tazobactam 4.5 GM in Sodium Chloride 0.9% 100 ML IV SCH ×3 (00:24→17:40)
[2018-09-22] MEDS: Vancomycin 1 GM, Vancomycin 250 MG in Sodium Chloride 0.9% 250 ML IV SCH ×2 (03:24→11:30)
[2018-09-22] MEDS: Vitamin E (dl-alpha-tocopherol acetate) 400 Unit Cap PO SCH (08:00)
[2018-09-22] MEDS: Famotidine 20 MG Tab PO SCH ×2 (08:00→20:44)
[2018-09-22] MEDS: Saccharomyces Boulardii (Probiotic) 250 MG Cap PO SCH ×2 (08:00→20:44)
[2018-09-22] MEDS: Acetaminophen/HYDROcodone 325-5 MG Tab PO PRN ×3 (08:00→21:49)
[2018-09-22] MEDS: Enoxaparin 40 MG/0.4 ML Syringe SUBCUT SCH (08:01)
[2018-09-22] MEDS: Nicotine 21 MG/24 Hr Patch TRDERM SCH (08:01)
[2018-09-22] MEDS: Sodium Chloride 0.9% 1,000 ML IV SCH (08:04)
--- NOTE | 2018-09-22 09:41 | PCM.PN ---
- General Info Date of Service: 09/22/18 Admission Dx/Problem (Free Text): Admission Diagnosis/Problem Admission Diagnosis/Problem Cellulitis Subjective Update: In to see Gissel with Dr. Smalls and charge nurse Christianne. Patient is lying in bed resting. PT reports she is now refusing them and threw her crutches today while they were attempting to train her. Nursing later asked why she was refusing and she said "because I know how to fucking walk." This is after she had fallen earlier in the week. We discussed why she is here and she tells me she has a foot infection which is the result of her injecting drugs into her foot. We discussed her methamphetamine use and she reports she was clean for 3 years and then used for 2 weeks up until this hospitalization. She reports she was clean after she decided to go into treatment. She was then asked if she plans to be clean after this and she says yes and believes she can do it herself. She has been offered psychiatry with Dr. Mckeon and Kaela and refused. Discussed how successful she will likely be in stopping since she required treatment the last time and she reports she will do it herself and does not need any help. We also discussed how she required a central line this visit due to difficulty obtaining and maintaining IV access and how we are concerned for her safety. Discussed possible effects of methamphetamine use and IV drug use in general. She has been caught lying several times while her with the most recent being denying any children however her chart reports she delivered a child here on with Dr. Sommer. She has essentially refused all resources she has been offered regarding her drug use. She continues to refuse PT. Wound care has been turned over to nursing with PT monitoring need for debridement. We discussed how she will likely continue to have pain and swelling for sometime after discharge and likely will need crutches after discharge. Discussed discharge plan and progress thus far. She reports she feels better and her swelling continues to improve. Otherwise no patient or nursing concerns. Functional Status: Reports: Pain Controlled, Tolerating Diet, Ambulating, Urinating. Denies: New Symptoms - Review of Systems General: Reports: No Symptoms, Weakness. Denies: Fever, Fatigue, Malaise, Chills HEENT: Reports: No Symptoms. Denies: Headaches, Sore Throat Pulmonary: Reports: No Symptoms. Denies: Shortness of Breath, Pleuritic Chest Pain, Cough, Sputum, Wheezing Cardiovascular: Reports: No Symptoms, Edema (Left leg 2/2 to cellulitis - improving ). Denies: Chest Pain, Palpitations, Dyspnea on Exertion Gastrointestinal: Reports: No Symptoms. Denies: Abdominal Pain, Constipation, Diarrhea, Nausea, Vomiting Genitourinary: Reports: No Symptoms. Denies: Pain Musculoskeletal: Reports: Leg Pain (left ), Foot Pain (left ) Skin: Reports: No Symptoms Neurological: Reports: No Symptoms, Difficulty Walking, Gait Disturbance. Denies: Confusion, Numbness, Tingling, Tremors, Trouble Speaking Psychiatric: Reports: No Symptoms - Patient Data Vitals - Most Recent: Last Vital Signs Temp 98.4 F 09/22/18 07:58 Pulse 72 09/22/18 07:58 Resp 15 09/22/18 07:58 BP 114/77 09/22/18 07:58 Pulse Ox 96 09/22/18 07:58 Weight - Most Recent: 182 lb 6.4 oz I&O - Last 24 Hours: Intake & Output 09/21/18 09/22/18 09/22/18 22:59 06:59 14:59 Intake Total 1662 1629 Output Total 1650 2400 Balance 12 -771 Lab Results Last 24 Hours: Laboratory Results - last 24 hr 09/22/18 09/22/18 Range/Units 06:10 06:10 WBC 15.25 H (3.98-10.04) K/mm3 RBC 3.64 L (3.98-5.22) M/mm3 Hgb 11.3 (11.2-15.7) gm/L Hct 34.0 L (34.1-44.9) % MCV 93.4 (79.4-94.8) fl MCH 31.0 (25.6-32.2) pg MCHC 33.2 (32.2-35.5) g/dl RDW Std Deviation 41.9 (36.4-46.3) fL Plt Count 200 (182-369) K/mm3 MPV 10.9 (9.4-12.3) fl Neut % (Auto) 72.3 H (34.0-71.1) % Lymph % (Auto) 13.0 L (19.3-51.7) % Nash % (Auto) 8.4 (4.7-12.5) % Eos % (Auto) 2.5 (0.7-5.8) Baso % (Auto) 0.3 (0.1-1.2) % Neut # (Auto) 11.04 H (1.56-6.13) K/mm3 Lymph # (Auto) 1.98 (1.18-3.74) K/mm3 Nash # (Auto) 1.28 H (0.24-0.36) K/mm3 Eos # (Auto) 0.38 H (0.04-0.36) K/mm3 Baso # (Auto) 0.04 (0.01-0.08) K/mm3 Manual Slide Review Abnormal smear Sodium 141 (136-145) mEq/L Potassium 3.9 (3.5-5.1) mEq/L Chloride 107 (98-107) mEq/L Carbon Dioxide 24 (21-32) mEq/L Anion Gap 13.9 (5-15) BUN 6 L (7-18) mg/dL Creatinine 1.3 H (0.55-1.02) mg/dL Est Cr Clr Drug Dosing 54.72 mL/min Estimated GFR (MDRD) 50 (>60) mL/min BUN/Creatinine Ratio 4.6 L (14-18) Glucose 87 (74-106) mg/dL Calcium 9.1 (8.5-10.1) mg/dL Magnesium 2.2 (1.8-2.4) mg/dl C-Reactive Protein 17.0 H* (<1.0) mg/dL Franco Results Last 24 Hours: Microbiology 09/17/18 23:00 Aerobic Blood Culture - Preliminary Blood - Venous NO GROWTH AFTER 4 DAYS Anaerobic Blood Culture - Preliminary NO GROWTH AFTER 4 DAYS 09/17/18 23:05 Aerobic Blood Culture - Preliminary Blood - Venous - Lab Draw NO GROWTH AFTER 4 DAYS Anaerobic Blood Culture - Final 09/21/18 11:15 Gram Stain - Final Ankle, Left Med Orders - Current: Current Medications Acetaminophen (Tylenol) 650 mg PO Q4H PRN PRN Reason: Pain (Mild 1-3)/fever Hydrocodone Bitart/Acetaminophen (Leland 325-5 Mg) 1 tab PO Q4H PRN PRN Reason: Pain Last Admin: 09/22/18 08:00 Dose: 1 tab Albuterol/Ipratropium (Duoneb 3.0-0.5 Mg/3 Ml) 3 ml NEB Q4H PRN PRN Reason: Shortness Of Breath/wheezing Bisacodyl (Dulcolax) 5 mg PO DAILY PRN PRN Reason: Constipation Docusate Sodium (Colace) 100 mg PO BID PRN PRN Reason: Constipation Enoxaparin Sodium (Lovenox) 40 mg SUBCUT DAILY [facility] Last Admin: 09/22/18 08:01 Dose: 40 mg Famotidine (Pepcid) 20 mg PO BID [facility] Last Admin: 09/22/18 08:00 Dose: 20 mg Hydralazine HCl (Apresoline) 20 mg IVPUSH Q4H PRN PRN Reason: Hypertension Hydrocortisone (Hydrocortisone 1% Crm) 0 gm TOP QID PRN PRN Reason: Rash/Itching Last Admin: 09/19/18 12:44 Dose: 1 applic Hydromorphone HCl (Dilaudid) 0.5 mg IVPUSH Q6H PRN PRN Reason: Pain (severe 7-10) Last Admin: 09/19/18 20:11 Dose: 0.5 mg Sodium Chloride (Normal Saline) 1,000 mls @ 50 mls/hr IV ASDIRECTED [facility] Last Admin: 09/22/18 08:04 Dose: 50 mls/hr Piperacillin Sod/Tazobactam (Sod 4.5 gm/ Sodium Chloride) 100 mls @ 25 mls/hr IV Q8H [facility] Last Admin: 09/22/18 08:02 Dose: 25 mls/hr Vancomycin HCl 1 gm/Vancomycin HCl 250 mg/ Sodium Chloride 250 mls @ 166.667 mls/hr IV Q8H [facility] Last Admin: 09/22/18 03:24 Dose: 166.667 mls/hr Ketorolac Tromethamine (Toradol) 30 mg IVPUSH Q6H PRN PRN Reason: Pain (moderate 4-6) Last Admin: 09/21/18 21:33 Dose: 30 mg Lorazepam (Ativan) 0.5 mg IVPUSH Q4H PRN PRN Reason: Withdrawal Symptoms Lorazepam (Ativan) 2 mg IVPUSH Q4H PRN PRN Reason: Seizures Lorazepam (Ativan) 1 mg IV Q6H PRN PRN Reason: Anxiety Last Admin: 09/20/18 00:34 Dose: 1 mg Metoprolol Tartrate (Lopressor) 5 mg IVPUSH Q4H PRN PRN Reason: Tachycardia Miscellaneous Information (Remove Patch) 1 ea TRDERM DAILY [facility] Last Admin: 09/22/18 09:07 Dose: Not Given Nicotine (Habitrol) 21 mg TRDERM DAILY [facility] Last Admin: 09/22/18 08:01 Dose: Not Given Ondansetron HCl (Zofran) 4 mg IV Q6H PRN PRN Reason: Nausea/Vomiting Last Admin: 09/19/18 09:52 Dose: 4 mg Polyethylene Glycol (Miralax) 17 gm PO DAILY PRN PRN Reason: Constipation Saccharomyces Boulardii (Florastor) 250 mg PO BID [facility] Last Admin: 09/22/18 08:00 Dose: 250 mg Senna/Docusate Sodium (Senna Plus) 1 tab PO BID PRN PRN Reason: Constipation Temazepam (Restoril) 15 mg PO BEDTIME PRN PRN Reason: Sleep Vancomycin HCl (Pharmacy To Dose - Vancomycin) 0 dose .XX ASDIRECTED PRN PRN Reason: RX TO DOSE VANCO Discontinued Medications Famotidine (Pepcid) 20 mg IVPUSH ONETIME ONE Stop: 09/18/18 09:01 Last Admin: 09/18/18 09:20 Dose: 20 mg Fentanyl (Sublimaze) 100 mcg IVPUSH ONETIME ONE Stop: 09/19/18 20:27 Last Admin: 09/20/18 01:07 Dose: Not Given Fentanyl (Sublimaze) 100 mcg IM STAT ONE Stop: 09/19/18 21:27 Last Admin: 09/19/18 21:38 Dose: 100 mcg Fentanyl (Sublimaze) 100 mcg IM ONETIME ONE Stop: 09/19/18 22:51 Last Admin: 09/19/18 22:59 Dose: 100 mcg Hydromorphone HCl (Dilaudid) 0.5 mg IVPUSH ONETIME ONE Stop: 09/18/18 07:14 Last Admin: 09/18/18 07:27 Dose: 0.5 mg Ceftriaxone Sodium 2 gm/ (Sodium Chloride) 100 mls @ 200 mls/hr IV Q24H [facility] Last Admin: 09/17/18 23:53 Dose: 200 mls/hr Sodium Chloride (Normal Saline) Confirm Administered Dose 1,000 mls @ as directed .ROUTE .STK-MED ONE Stop: 09/18/18 01:15 Last Admin: 09/18/18 02:35 Dose: Not Given Sodium Chloride (Normal Saline) 1,000 mls @ 125 mls/hr IV ASDIRECTED [facility] Last Admin: 09/19/18 02:23 Dose: 125 mls/hr Ceftriaxone Sodium 2 gm/ (Sodium Chloride) 100 mls @ 200 mls/hr IV Q24H [facility] Last Admin: 09/18/18 11:47 Dose: 200 mls/hr Piperacillin Sod/Tazobactam (Sod 4.5 gm/ Sodium Chloride) 100 mls @ 25 mls/hr IV Q8H [facility] Last Admin: 09/19/18 21:27 Dose: Not Given Piperacillin Sod/Tazobactam (Sod 4.5 gm/ Sodium Chloride) 100 mls @ 200 mls/hr IV ONETIME ONE Stop: 09/18/18 19:44 Last Admin: 09/18/18 20:52 Dose: 200 mls/hr Vancomycin HCl 1 gm/ Sodium (Chloride) 250 mls @ 250 mls/hr IV Q8H [facility] Last Admin: 09/19/18 21:28 Dose: Not Given Magnesium Sulfate 2 gm/ Premix 50 mls @ 25 mls/hr IV ONETIME ONE Stop: 09/19/18 12:44 Last Admin: 09/19/18 12:08 Dose: 25 mls/hr Vancomycin HCl 1 gm/ Sodium (Chloride) 250 mls @ 250 mls/hr IV Q8H [facility] Last Admin: 09/20/18 01:38 Dose: Not Given Vancomycin HCl 1 gm/ Sodium (Chloride) 250 mls @ 250 mls/hr IV Q8H [facility] Last Admin: 09/21/18 02:49 Dose: Not Given Vancomycin HCl 1 gm/Vancomycin HCl 250 mg/ Sodium Chloride 500 mls @ 333.333 mls/hr IV Q8H [facility] Last Admin: 09/21/18 03:09 Dose: 250 mls/hr Magnesium Sulfate 2 gm/ Premix 50 mls @ 25 mls/hr IV ONETIME ONE Stop: 09/21/18 15:16 Last Admin: 09/21/18 15:32 Dose: 25 mls/hr Iopamidol (Isovue-370 (76%)) 100 ml IV ONETIME ONE Stop: 09/17/18 22:27 Last Admin: 09/18/18 02:33 Dose: Not Given Ketorolac Tromethamine (Toradol) 60 mg IM ONETIME ONE Stop: 09/17/18 21:43 Last Admin: 09/17/18 21:47 Dose: 60 mg Ketorolac Tromethamine (Toradol) 60 mg IM ONETIME ONE Stop: 09/17/18 21:44 Last Admin: 09/17/18 21:49 Dose: Not Given Ketorolac Tromethamine (Toradol) 30 mg IM Q6H PRN PRN Reason: Pain (moderate 4-6) Last Admin: 09/20/18 08:40 Dose: 30 mg Lidocaine HCl (Xylocaine 1%) 10 ml INJECT ONETIME ONE Stop: 09/19/18 20:27 Last Admin: 09/19/18 23:02 Dose: 10 ml Magnesium Sulfate (Pharmacy To Dose - Magnesium Replacement) 0 dose .XX ASDIRECTED PRN PRN Reason: RX TO WATCH MAG Midazolam HCl (Versed 1 Mg/Ml) 5 mg IVPUSH ONETIME ONE Stop: 09/19/18 20:26 Last Admin: 09/20/18 01:06 Dose: Not Given Midazolam HCl (Versed 1 Mg/Ml) 4 mg IM STAT ONE Stop: 09/19/18 21:27 Last Admin: 09/19/18 21:36 Dose: 4 mg Potassium Chloride (Pharmacy To Dose - Potassium Replacement) 0 dose .XX ASDIRECTED PRN PRN Reason: RX TO WATCH K Potassium Chloride (Klor-Con M20) 40 meq PO ONETIME ONE Stop: 09/18/18 09:16 Last Admin: 09/18/18 09:20 Dose: 40 meq Potassium Chloride (Klor-Con M20) 40 meq PO Q4H CYNTHIA Stop: 09/19/18 14:46 Last Admin: 09/19/18 15:30 Dose: 40 meq Scopolamine (Transderm-Scop) 1.5 mg TRDERM Q72H ONE Stop: 09/19/18 09:49 Last Admin: 09/19/18 10:16 Dose: 1.5 mg Tramadol HCl (Ultram) 50 mg PO ONETIME ONE Stop: 09/17/18 21:44 Last Admin: 09/17/18 21:48 Dose: 50 mg Tramadol HCl (Ultram) 100 mg PO ONETIME ONE Stop: 09/17/18 21:44 Last Admin: 09/17/18 21:49 Dose: Not Given Vitamin E (Vitamin E) 400 units PO DAILY CYNTHIA Stop: 09/22/18 09:01 Last Admin: 09/22/18 08:00 Dose: 400 units - Exam Quality Assessment: DVT Prophylaxis General: Alert, Oriented, Cooperative (at times ), No Acute Distress HEENT: Pupils Equal, Pupils Reactive, EOMI, Mucous Membr. Moist/[place] Neck: Supple, Trachea Midline, No JVD Lungs: Clear to Auscultation, Normal Respiratory Effort Cardiovascular: Regular Rate, Regular Rhythm GI/Abdominal Exam: Normal Bowel Sounds, Soft, Non-Tender, No Distention, No Abnormal Bruit (Female) Exam: Deferred Back Exam: Normal Inspection, Full Range of Motion Extremities: Normal Capillary Refill, Pedal Edema (left sided ), Leg Pain, Limited Range of Motion, Other (Improved erythema to left leg. Patient reports this is improving. wet press tender. ) Peripheral Pulses: 1+: Dorsalis Pedis (L), Dorsalis Pedis (R), 2+: Radial (L), Radial (R) Skin: Warm, Dry, Intact Wound/Incisions: Dressing Dry and Intact, Drainage, Erythema Improving Psy/Mental Status: Alert, Labile Mood, Agitated - Problem List & Annotations (1) Cellulitis of left ankle SNOMED Code(s): 13855608 Code(s): L03.116 - CELLULITIS OF LEFT LOWER LIMB Status: Acute Priority: High Current Visit: Yes (2) Cellulitis of left foot SNOMED Code(s): 495109975 Code(s): L03.116 - CELLULITIS OF LEFT LOWER LIMB Status: Acute Priority: High Current Visit: Yes (3) Elevated C-reactive protein SNOMED Code(s): 626986820659179 Code(s): R79.82 - ELEVATED C-REACTIVE PROTEIN (CRP) Status: Acute Priority: High Current Visit: Yes (4) IV drug user SNOMED Code(s): 026663754 Code(s): F19.90 - OTHER PSYCHOACTIVE SUBSTANCE USE, UNSPECIFIED, UNCOMPLICATED Status: Acute Priority: High Current Visit: Yes (5) Methamphetamine abuse SNOMED Code(s): 537008539 Code(s): F15.10 - OTHER STIMULANT ABUSE, UNCOMPLICATED Status: Acute Priority: High Current Visit: Yes (6) Neutrophilic leukocytosis SNOMED Code(s): 579269456, 610397590 Code(s): D72.9 - DISORDER OF WHITE BLOOD CELLS, UNSPECIFIED Status: Acute Priority: High Current Visit: Yes - Problem List Review Problem List Initiated/Reviewed/Updated: Yes - My Orders Last 24 Hours: My Active Orders 09/21/18 09:04 Consult to Physical Therapy [PT Evaluation and Treatment] [CONS] Routine 09/21/18 11:15 CULTURE ANAEROBIC + SMEAR [RM] Routine 09/21/18 12:07 Consult to Physician [CONS] Routine 09/21/18 12:08 Notify Provider Consults [RC] ASDIRECTED - Plan Plan:: Assessment/Plan: Acute: Severe Left Foot Cellulitis With Significant Edema - 2/2 IV Drug Use - She is a known Meth user; last use was day before admission - She injects with re-used needle on her ankle - U/S shows report diffuse subcutaneous edema - CT scan report reads diffuse subcutaneous edema. No bony erosion to indicate osteomyelitis. No focal fluid collections of abscess are seen. - Foot X-ray on 09/21/18: Soft tissue swelling; Incidental calcaneal spur; No acute bony abnormality or erosion seen - WBC 32.52--> 27.85-->20.21-->16.57-->15.15-->15.25 - CRP 37.3-->34.6-->25.4-->24.1-->17.0 - Pain management plus NSAIDs - IV vancomycin and zosyn - PT/OT consult - PT wound care - nursing to take over but PT will monitor need for debridement - Monitor for worsening of foot infection - Wound culture ordered after blisters opened - negative so far; had already started antibiotics Poly-Substance Abuse - Ampheth/Meth, Benzos and THC positive - SARA consult, Mike consult, Kaela consult; patient refused all - Counseled on substance abuse - Per patient she was clean for 3 years after treatment and then relapsed - Multiple injection locations on extremities - consult - Essentially refusing all services - have offered multiple times - Reports she will stop on her own and does not need help DEVORA - Baseline eGFR and creatinine appear to be WNL - BUN 6-->6 - Creatinine 0.8-->1.3 - eGFR >60 --> 50 - Has been receiving IV fluids -> Increase as ordered - Likely 2/2 poor intake and medications Resolved: E-lytes Abnormality - Hypokalemia and Hypomagnesemia - K 3.4 and Mg 1.6 - 2/2 inadequate intake; she has been sick lately - Replete and monitor Sepsis - 2/2 Severe Left Foot Infection - Tachycardia and WBC 33K plus Infection - Received IV 2 Grams of IV Rocephin x1 in ED - So far blood culture for 4 day is negative - Change antibiotic regimen to IV Vancomycin and Zosyn for pharmacy to dose Chronic: Substance Abuse: Meth and Marijuana Nicotine Dependence, Counseled on Smoking Cessation Plan: She is clinically improving Routine AM Labs SAC consult for substance abuse; patient refused UA negative for UTI Nicotine Patch Daily - initially refusing but now accepting at times Topical Hydrocortisone cream for skin rash/itching PRN QID Vitamin E level and Vitamin E 400 mg po Daily x3 doses only for anti-oxidant and wound healing Add Opioids for pain control; patient is a meth addict cannot expect to just control her pain with NSAIDs Ketorolac for anti-inflammatory agent GI/DVT PPx: H2B/Lovenox SubQ Daily PT/OT for assessment and evaluation SW/CM for d/c planning Code status: Full code; PCP: None - needs to establish
[2018-09-22] MEDS ORDERED: Sodium Chloride 0.9% 1,000 ML IV SCH ×2 (10:00→20:00)
[2018-09-23] MEDS: Piperacillin/Tazobactam 4.5 GM in Sodium Chloride 0.9% 100 ML IV SCH ×3 (00:15→16:29)
[2018-09-23] MEDS: HYDROmorphone 1 MG/ML Syringe IVPUSH PRN ×2 (02:09→11:07)
--- NOTE | 2018-09-23 07:05 | PCM.PN ---
- General Info Date of Service: 09/23/18 Admission Dx/Problem (Free Text): Admission Diagnosis/Problem Admission Diagnosis/Problem Cellulitis Subjective Update: In to see Maribel with charge nurse Lima and Dr. Smalls. Her foot has improved and looks much better. She has been getting around using a walker. IV antibiotics have continued. No patient or nursing concerns. Hopeful for discharge tomorrow vs. Thursday. Functional Status: Reports: Pain Controlled, Tolerating Diet, Ambulating, Urinating. Denies: New Symptoms - Review of Systems General: Reports: No Symptoms. Denies: Fever, Weakness, Fatigue, Malaise HEENT: Reports: No Symptoms. Denies: Headaches, Sore Throat Pulmonary: Reports: No Symptoms. Denies: Shortness of Breath, Cough, Sputum, Wheezing Cardiovascular: Reports: No Symptoms. Denies: Palpitations, Dyspnea on Exertion , Edema, Lightheadedness Gastrointestinal: Reports: No Symptoms. Denies: Abdominal Pain, Constipation, Diarrhea, Nausea, Vomiting Genitourinary: Reports: No Symptoms. Denies: Pain Musculoskeletal: Reports: Leg Pain (improved ), Foot Pain (improved ) Skin: Reports: No Symptoms. Denies: Cyanosis Neurological: Reports: Difficulty Walking, Gait Disturbance. Denies: Confusion , Numbness, Syncope, Tingling, Trouble Speaking Psychiatric: Reports: No Symptoms - Patient Data Vitals - Most Recent: Last Vital Signs Temp 98.6 F 09/23/18 02:15 Pulse 76 09/23/18 02:15 Resp 16 09/23/18 02:15 BP 120/81 09/23/18 02:15 Pulse Ox 94 L 09/23/18 02:15 Weight - Most Recent: 178 lb 6.4 oz I&O - Last 24 Hours: Intake & Output 09/22/18 09/23/18 09/23/18 22:59 06:59 14:59 Intake Total 1342 2997 Balance 1342 2997 Lab Results Last 24 Hours: Laboratory Results - last 24 hr 09/22/18 09/22/18 09/22/18 Range/Units 06:10 06:10 10:37 WBC (3.98-10.04) K/mm3 RBC (3.98-5.22) M/mm3 Hgb (11.2-15.7) gm/L Hct (34.1-44.9) % MCV (79.4-94.8) fl MCH (25.6-32.2) pg MCHC (32.2-35.5) g/dl RDW Std Deviation (36.4-46.3) fL Plt Count (182-369) K/mm3 MPV (9.4-12.3) fl Neut % (Auto) (34.0-71.1) % Lymph % (Auto) (19.3-51.7) % [place] % (Auto) (4.7-12.5) % Eos % (Auto) (0.7-5.8) Baso % (Auto) (0.1-1.2) % Neut # (Auto) (1.56-6.13) K/mm3 Lymph # (Auto) (1.18-3.74) K/mm3 [place] # (Auto) (0.24-0.36) K/mm3 Eos # (Auto) (0.04-0.36) K/mm3 Baso # (Auto) (0.01-0.08) K/mm3 Manual Slide Review Abnormal smear Sodium 141 (136-145) mEq/L Potassium 3.9 (3.5-5.1) mEq/L Chloride 107 (98-107) mEq/L Carbon Dioxide 24 (21-32) mEq/L Anion Gap 13.9 (5-15) BUN 6 L (7-18) mg/dL Creatinine 1.3 H (0.55-1.02) mg/dL Est Cr Clr Drug Dosing 54.72 mL/min Estimated GFR (MDRD) 50 (>60) mL/min BUN/Creatinine Ratio 4.6 L (14-18) Glucose 87 (74-106) mg/dL Calcium 9.1 (8.5-10.1) mg/dL Magnesium 2.2 (1.8-2.4) mg/dl C-Reactive Protein 17.0 H* (<1.0) mg/dL Vancomycin Trough 35.7 H (10.0-20.0) Random Vancomycin ug/mL 09/23/18 09/23/18 Range/Units 06:12 06:12 WBC 14.49 H (3.98-10.04) K/mm3 RBC 3.75 L (3.98-5.22) M/mm3 Hgb 11.3 (11.2-15.7) gm/L Hct 35.3 (34.1-44.9) % MCV 94.1 (79.4-94.8) fl MCH 30.1 (25.6-32.2) pg MCHC 32.0 L (32.2-35.5) g/dl RDW Std Deviation 41.5 (36.4-46.3) fL Plt Count 224 (182-369) K/mm3 MPV 10.9 (9.4-12.3) fl Neut % (Auto) 69.7 (34.0-71.1) % Lymph % (Auto) 16.1 L (19.3-51.7) % [place] % (Auto) 6.8 (4.7-12.5) % Eos % (Auto) 3.0 (0.7-5.8) Baso % (Auto) 0.3 (0.1-1.2) % Neut # (Auto) 10.10 H (1.56-6.13) K/mm3 Lymph # (Auto) 2.33 (1.18-3.74) K/mm3 [place] # (Auto) 0.99 H (0.24-0.36) K/mm3 Eos # (Auto) 0.43 H (0.04-0.36) K/mm3 Baso # (Auto) 0.04 (0.01-0.08) K/mm3 Manual Slide Review Sodium 143 (136-145) mEq/L Potassium 4.2 (3.5-5.1) mEq/L Chloride 107 (98-107) mEq/L Carbon Dioxide 26 (21-32) mEq/L Anion Gap 14.2 (5-15) BUN 7 (7-18) mg/dL Creatinine 1.4 H (0.55-1.02) mg/dL Est Cr Clr Drug Dosing 50.81 mL/min Estimated GFR (MDRD) 46 (>60) mL/min BUN/Creatinine Ratio 5.0 L (14-18) Glucose 89 (74-106) mg/dL Calcium 9.2 (8.5-10.1) mg/dL Magnesium 2.1 (1.8-2.4) mg/dl C-Reactive Protein 13.2 H* (<1.0) mg/dL Vancomycin Trough (10.0-20.0) Random Vancomycin 11.0 ug/mL Franco Results Last 24 Hours: Microbiology 09/17/18 23:00 Aerobic Blood Culture - Preliminary Blood - Venous NO GROWTH AFTER 5 DAYS Anaerobic Blood Culture - Preliminary NO GROWTH AFTER 5 DAYS 09/17/18 23:05 Aerobic Blood Culture - Preliminary Blood - Venous - Lab Draw NO GROWTH AFTER 5 DAYS Anaerobic Blood Culture - Final 09/21/18 11:15 Gram Stain - Final Ankle, Left Anaerobic Culture - Preliminary Med Orders - Current: Current Medications Acetaminophen (Tylenol) 650 mg PO Q4H PRN PRN Reason: Pain (Mild 1-3)/fever Hydrocodone Bitart/Acetaminophen ([place] 325-5 Mg) 1 tab PO Q4H PRN PRN Reason: Pain Last Admin: 09/22/18 21:49 Dose: 1 tab Albuterol/Ipratropium (Duoneb 3.0-0.5 Mg/3 Ml) 3 ml NEB Q4H PRN PRN Reason: Shortness Of Breath/wheezing Bisacodyl (Dulcolax) 5 mg PO DAILY PRN PRN Reason: Constipation Docusate Sodium (Colace) 100 mg PO BID PRN PRN Reason: Constipation Enoxaparin Sodium (Lovenox) 40 mg SUBCUT DAILY [facility] Last Admin: 09/22/18 08:01 Dose: 40 mg Famotidine (Pepcid) 20 mg PO BID [facility] Last Admin: 09/22/18 20:44 Dose: 20 mg Hydralazine HCl (Apresoline) 20 mg IVPUSH Q4H PRN PRN Reason: Hypertension Hydrocortisone (Hydrocortisone 1% Crm) 0 gm TOP QID PRN PRN Reason: Rash/Itching Last Admin: 09/19/18 12:44 Dose: 1 applic Hydromorphone HCl (Dilaudid) 0.5 mg IVPUSH Q6H PRN PRN Reason: Pain (severe 7-10) Last Admin: 09/23/18 02:09 Dose: 0.5 mg Piperacillin Sod/Tazobactam (Sod 4.5 gm/ Sodium Chloride) 100 mls @ 25 mls/hr IV Q8H [facility] Last Admin: 09/23/18 00:15 Dose: 25 mls/hr Sodium Chloride (Normal Saline) 1,000 mls @ 50 mls/hr IV ASDIRECTED [facility] Last Admin: 09/22/18 19:13 Dose: 50 mls/hr Ketorolac Tromethamine (Toradol) 30 mg IVPUSH Q6H PRN PRN Reason: Pain (moderate 4-6) Last Admin: 09/21/18 21:33 Dose: 30 mg Lorazepam (Ativan) 0.5 mg IVPUSH Q4H PRN PRN Reason: Withdrawal Symptoms Lorazepam (Ativan) 2 mg IVPUSH Q4H PRN PRN Reason: Seizures Lorazepam (Ativan) 1 mg IV Q6H PRN PRN Reason: Anxiety Last Admin: 09/20/18 00:34 Dose: 1 mg Metoprolol Tartrate (Lopressor) 5 mg IVPUSH Q4H PRN PRN Reason: Tachycardia Miscellaneous Information (Remove Patch) 1 ea TRDERM DAILY [facility] Last Admin: 09/22/18 09:07 Dose: Not Given Nicotine (Habitrol) 21 mg TRDERM DAILY [facility] Last Admin: 09/22/18 08:01 Dose: Not Given Ondansetron HCl (Zofran) 4 mg IV Q6H PRN PRN Reason: Nausea/Vomiting Last Admin: 09/19/18 09:52 Dose: 4 mg Polyethylene Glycol (Miralax) 17 gm PO DAILY PRN PRN Reason: Constipation Saccharomyces Boulardii (Florastor) 250 mg PO BID [facility] Last Admin: 09/22/18 20:44 Dose: 250 mg Senna/Docusate Sodium (Senna Plus) 1 tab PO BID PRN PRN Reason: Constipation Temazepam (Restoril) 15 mg PO BEDTIME PRN PRN Reason: Sleep Vancomycin HCl (Pharmacy To Dose - Vancomycin) 0 dose .XX ASDIRECTED PRN PRN Reason: RX TO DOSE VANCO Discontinued Medications Famotidine (Pepcid) 20 mg IVPUSH ONETIME ONE Stop: 09/18/18 09:01 Last Admin: 09/18/18 09:20 Dose: 20 mg Fentanyl (Sublimaze) 100 mcg IVPUSH ONETIME ONE Stop: 09/19/18 20:27 Last Admin: 09/20/18 01:07 Dose: Not Given Fentanyl (Sublimaze) 100 mcg IM STAT ONE Stop: 09/19/18 21:27 Last Admin: 09/19/18 21:38 Dose: 100 mcg Fentanyl (Sublimaze) 100 mcg IM ONETIME ONE Stop: 09/19/18 22:51 Last Admin: 09/19/18 22:59 Dose: 100 mcg Hydromorphone HCl (Dilaudid) 0.5 mg IVPUSH ONETIME ONE Stop: 09/18/18 07:14 Last Admin: 09/18/18 07:27 Dose: 0.5 mg Ceftriaxone Sodium 2 gm/ (Sodium Chloride) 100 mls @ 200 mls/hr IV Q24H [facility] Last Admin: 09/17/18 23:53 Dose: 200 mls/hr Sodium Chloride (Normal Saline) Confirm Administered Dose 1,000 mls @ as directed .ROUTE .STK-MED ONE Stop: 09/18/18 01:15 Last Admin: 09/18/18 02:35 Dose: Not Given Sodium Chloride (Normal Saline) 1,000 mls @ 125 mls/hr IV ASDIRECTED [facility] Last Admin: 09/19/18 02:23 Dose: 125 mls/hr Ceftriaxone Sodium 2 gm/ (Sodium Chloride) 100 mls @ 200 mls/hr IV Q24H [facility] Last Admin: 09/18/18 11:47 Dose: 200 mls/hr Piperacillin Sod/Tazobactam (Sod 4.5 gm/ Sodium Chloride) 100 mls @ 25 mls/hr IV Q8H [facility] Last Admin: 09/19/18 21:27 Dose: Not Given Piperacillin Sod/Tazobactam (Sod 4.5 gm/ Sodium Chloride) 100 mls @ 200 mls/hr IV ONETIME ONE Stop: 09/18/18 19:44 Last Admin: 09/18/18 20:52 Dose: 200 mls/hr Vancomycin HCl 1 gm/ Sodium (Chloride) 250 mls @ 250 mls/hr IV Q8H [facility] Last Admin: 09/19/18 21:28 Dose: Not Given Sodium Chloride (Normal Saline) 1,000 mls @ 50 mls/hr IV ASDIRECTED [facility] Last Admin: 09/22/18 08:04 Dose: 50 mls/hr Magnesium Sulfate 2 gm/ Premix 50 mls @ 25 mls/hr IV ONETIME ONE Stop: 09/19/18 12:44 Last Admin: 09/19/18 12:08 Dose: 25 mls/hr Vancomycin HCl 1 gm/ Sodium (Chloride) 250 mls @ 250 mls/hr IV Q8H [facility] Last Admin: 09/20/18 01:38 Dose: Not Given Vancomycin HCl 1 gm/ Sodium (Chloride) 250 mls @ 250 mls/hr IV Q8H [facility] Last Admin: 09/21/18 02:49 Dose: Not Given Vancomycin HCl 1 gm/Vancomycin HCl 250 mg/ Sodium Chloride 500 mls @ 333.333 mls/hr IV Q8H [facility] Last Admin: 09/21/18 03:09 Dose: 250 mls/hr Vancomycin HCl 1 gm/Vancomycin HCl 250 mg/ Sodium Chloride 250 mls @ 166.667 mls/hr IV Q8H [facility] Last Admin: 09/22/18 11:30 Dose: Not Given Magnesium Sulfate 2 gm/ Premix 50 mls @ 25 mls/hr IV ONETIME ONE Stop: 09/21/18 15:16 Last Admin: 09/21/18 15:32 Dose: 25 mls/hr Sodium Chloride (Normal Saline) 1,000 mls @ 125 mls/hr IV ASDIRECTED [facility] Stop: 09/22/18 20:00 Last Admin: 09/22/18 11:31 Dose: 125 mls/hr Iopamidol (Isovue-370 (76%)) 100 ml IV ONETIME ONE Stop: 09/17/18 22:27 Last Admin: 09/18/18 02:33 Dose: Not Given Ketorolac Tromethamine (Toradol) 60 mg IM ONETIME ONE Stop: 09/17/18 21:43 Last Admin: 09/17/18 21:47 Dose: 60 mg Ketorolac Tromethamine (Toradol) 60 mg IM ONETIME ONE Stop: 09/17/18 21:44 Last Admin: 09/17/18 21:49 Dose: Not Given Ketorolac Tromethamine (Toradol) 30 mg IM Q6H PRN PRN Reason: Pain (moderate 4-6) Last Admin: 09/20/18 08:40 Dose: 30 mg Lidocaine HCl (Xylocaine 1%) 10 ml INJECT ONETIME ONE Stop: 09/19/18 20:27 Last Admin: 09/19/18 23:02 Dose: 10 ml Magnesium Sulfate (Pharmacy To Dose - Magnesium Replacement) 0 dose .XX ASDIRECTED PRN PRN Reason: RX TO WATCH MAG Midazolam HCl (Versed 1 Mg/Ml) 5 mg IVPUSH ONETIME ONE Stop: 09/19/18 20:26 Last Admin: 09/20/18 01:06 Dose: Not Given Midazolam HCl (Versed 1 Mg/Ml) 4 mg IM STAT ONE Stop: 09/19/18 21:27 Last Admin: 09/19/18 21:36 Dose: 4 mg Potassium Chloride (Pharmacy To Dose - Potassium Replacement) 0 dose .XX ASDIRECTED PRN PRN Reason: RX TO WATCH K Potassium Chloride (Klor-Con M20) 40 meq PO ONETIME ONE Stop: 09/18/18 09:16 Last Admin: 09/18/18 09:20 Dose: 40 meq Potassium Chloride (Klor-Con M20) 40 meq PO Q4H [facility] Stop: 09/19/18 14:46 Last Admin: 09/19/18 15:30 Dose: 40 meq Scopolamine (Transderm-Scop) 1.5 mg TRDERM Q72H ONE Stop: 09/19/18 09:49 Last Admin: 09/19/18 10:16 Dose: 1.5 mg Tramadol HCl (Ultram) 50 mg PO ONETIME ONE Stop: 09/17/18 21:44 Last Admin: 09/17/18 21:48 Dose: 50 mg Tramadol HCl (Ultram) 100 mg PO ONETIME ONE Stop: 09/17/18 21:44 Last Admin: 09/17/18 21:49 Dose: Not Given Vitamin E (Vitamin E) 400 units PO DAILY [facility] Stop: 09/22/18 09:01 Last Admin: 09/22/18 08:00 Dose: 400 units - Exam Quality Assessment: DVT Prophylaxis General: Alert, Oriented, Cooperative, No Acute Distress HEENT: Pupils Equal, Pupils Reactive, EOMI, Mucous Membr. Moist/[place] Neck: Supple, Trachea Midline Lungs: Clear to Auscultation, Normal Respiratory Effort Cardiovascular: Regular Rate, Regular Rhythm GI/Abdominal Exam: Normal Bowel Sounds, Soft, Non-Tender, No Distention, No Abnormal Bruit (Female) Exam: Deferred Extremities: Normal Capillary Refill, Pedal Edema (Left sided 2/2 inflammation - improving ), Leg Pain, Other (Erythema and edema are both improving substantially ) Peripheral Pulses: 0: Dorsalis Pedis (L), 2+: Radial (L), Radial (R), Dorsalis Pedis (R) Skin: Warm, Dry, Intact Neurological: No New Focal Deficit Psy/Mental Status: Alert, Normal Affect, Normal Mood. No: Anxious, Agitated, Withdrawal Symptoms - Problem List & Annotations (1) Cellulitis of left ankle SNOMED Code(s): 75721262 Code(s): L03.116 - CELLULITIS OF LEFT LOWER LIMB Status: Acute Priority: High Current Visit: Yes (2) Cellulitis of left foot SNOMED Code(s): 708253541 Code(s): L03.116 - CELLULITIS OF LEFT LOWER LIMB Status: Acute Priority: High Current Visit: Yes (3) Elevated C-reactive protein SNOMED Code(s): 134133930115381 Code(s): R79.82 - ELEVATED C-REACTIVE PROTEIN (CRP) Status: Acute Priority: High Current Visit: Yes (4) IV drug user SNOMED Code(s): 622397850 Code(s): F19.90 - OTHER PSYCHOACTIVE SUBSTANCE USE, UNSPECIFIED, UNCOMPLICATED Status: Acute Priority: High Current Visit: Yes (5) Methamphetamine abuse SNOMED Code(s): 309390649 Code(s): F15.10 - OTHER STIMULANT ABUSE, UNCOMPLICATED Status: Acute Priority: High Current Visit: Yes (6) Neutrophilic leukocytosis SNOMED Code(s): 530211209, 721167615 Code(s): D72.9 - DISORDER OF WHITE BLOOD CELLS, UNSPECIFIED Status: Acute Priority: High Current Visit: Yes - Problem List Review Problem List Initiated/Reviewed/Updated: Yes - My Orders Last 24 Hours: My Active Orders 09/22/18 18:36 Wound Care [RC] DAILY 09/22/18 20:00 Sodium Chloride 0.9% [Normal Saline] 1,000 ml IV ASDIRECTED 09/23/18 06:12 CBC WITH AUTO DIFF [HEME] AM 09/24/18 05:11 BASIC METABOLIC PANEL,BMP [CHEM] AM CBC WITH AUTO DIFF [HEME] AM CRP [C-REACTIVE PROTEIN] [CHEM] AM MAGNESIUM [CHEM] AM 09/25/18 05:11 BASIC METABOLIC PANEL,BMP [CHEM] AM CBC WITH AUTO DIFF [HEME] AM CRP [C-REACTIVE PROTEIN] [CHEM] AM MAGNESIUM [CHEM] AM 09/26/18 05:11 BASIC METABOLIC PANEL,BMP [CHEM] AM CBC WITH AUTO DIFF [HEME] AM CRP [C-REACTIVE PROTEIN] [CHEM] AM MAGNESIUM [CHEM] AM - Plan Plan:: Assessment/Plan: Acute: Severe Left Foot Cellulitis With Significant Edema - 2/2 IV Drug Use - She is a known Meth user; last use was day before admission - She injects with re-used needle on her ankle - U/S shows report diffuse subcutaneous edema - CT scan report reads diffuse subcutaneous edema. No bony erosion to indicate osteomyelitis. No focal fluid collections of abscess are seen. - Foot X-ray on 09/21/18: Soft tissue swelling; Incidental calcaneal spur; No acute bony abnormality or erosion seen - WBC 32.52--> 27.85-->20.21-->16.57-->15.15-->15.25-->14.49 - CRP 37.3-->34.6-->25.4-->24.1-->17.0-->13.2 - Pain management plus NSAIDs - IV vancomycin and zosyn - PT/OT consult - PT wound care - nursing to take over but PT will monitor need for debridement - Monitor for worsening of foot infection - Wound culture ordered after blisters opened - negative so far; had already started antibiotics Poly-Substance Abuse - Ampheth/Meth, Benzos and THC positive - [facility] consult, Mike consult, [facility] consult; patient refused all - Counseled on substance abuse - Per patient she was clean for 3 years after treatment and then relapsed - Multiple injection locations on extremities - consult - Essentially refusing all services - have offered multiple times - Reports she will stop on her own and does not need help DEVORA - Baseline eGFR and creatinine appear to be WNL - BUN 6-->6-->7 - Creatinine 0.8-->1.3-->1.4 - eGFR >60 --> 50-->46 - Has been receiving IV fluids -> Increase as ordered - 2L IV fluid bolus - Likely 2/2 poor intake and medications Resolved: E-lytes Abnormality - Hypokalemia and Hypomagnesemia - K 3.4 and Mg 1.6 - 2/2 inadequate intake; she has been sick lately - Replete and monitor Sepsis - 2/2 Severe Left Foot Infection - Tachycardia and WBC 33K plus Infection - Received IV 2 Grams of IV Rocephin x1 in ED - So far blood culture for 4 day is negative - Change antibiotic regimen to IV Vancomycin and Zosyn for pharmacy to dose Chronic: Substance Abuse: Meth and Marijuana Nicotine Dependence, Counseled on Smoking Cessation Plan: She is clinically improving Routine AM Labs SAC consult for substance abuse; patient refused UA negative for UTI Nicotine Patch Daily - initially refusing but now accepting at times Topical Hydrocortisone cream for skin rash/itching PRN QID Vitamin E level and Vitamin E 400 mg po Daily x3 doses only for anti-oxidant and wound healing Add Opioids for pain control; patient is a meth addict cannot expect to just control her pain with NSAIDs Ketorolac for anti-inflammatory agent GI/DVT PPx: H2B/Lovenox SubQ Daily PT/OT for assessment and evaluation SW/CM for d/c planning Code status: Full code; PCP: None - needs to establish LOS >96HR due to need for continued IV antibiotics. Hopeful for discharge in 24 hours pending continued improvement.
[2018-09-23] MEDS: Saccharomyces Boulardii (Probiotic) 250 MG Cap PO SCH ×2 (09:03→20:37)
[2018-09-23] MEDS: Nicotine 21 MG/24 Hr Patch TRDERM SCH (09:03)
[2018-09-23] MEDS: Enoxaparin 40 MG/0.4 ML Syringe SUBCUT SCH (09:03)
[2018-09-23] MEDS: Famotidine 20 MG Tab PO SCH ×2 (09:03→20:36)
[2018-09-23] MEDS ORDERED: Sodium Chloride 0.9% 1,000 ML IV ONE ×2 (13:00→14:25)
[2018-09-23] MEDS ORDERED: HYDROmorphone 1 MG/ML Syringe IVPUSH ONE (13:10)
[2018-09-23] MEDS ORDERED: EPINEPHrine/Lidocaine/Tetracai 3 ML ML TOP ONE (13:11)
[2018-09-23] MEDS ORDERED: Sodium Chloride 0.9% 1,000 ML IV SCH (14:30)
[2018-09-23] MEDS: Acetaminophen/HYDROcodone 325-5 MG Tab PO PRN ×2 (16:29→20:28)
[2018-09-23] MEDS ORDERED: Vancomycin 1 GM SDV ONE (20:23)
[2018-09-24] MEDS: Piperacillin/Tazobactam 4.5 GM in Sodium Chloride 0.9% 100 ML IV SCH ×3 (00:12→16:47)
[2018-09-24] MEDS: Acetaminophen/HYDROcodone 325-5 MG Tab PO PRN ×5 (01:09→20:55)
--- NOTE | 2018-09-24 06:30 | PCM.DCSUM1 ---
Discharge Summary - Hospital Course HPI Initial Comments: This is a 27 yo white female with past medical hx/o Nicotine Dependence, Hx/o Heroin Abuse, Chronic Meth and Marijuana Use who comes in for evaluation of left foot pain associated with worsening edema and erythema that started over the past 48 hours. She denies any fever or chills. However she admits she is an IVU and she injects meth in her left ankle. He last use was about noon yesterday. She is also a marijuana user. She denies a similar hx/o it in the past. Patient smokes cigarettes about 1/2 a pack per day. She drinks 2-3 beers once a week. Her initial work up in ED shows a CBC remarkable for WBC of 32.52, Platelet of 181, Neutrophils of 87.5%, Lymphocyte of 5.2%, Neutrophil # of 28.42, and Monocyte # of 1.96. Her chemistry is significant for K of 3.3, BS of 108, Total Bilirubin of 1.1, AST of 14, CRP of 37.3, and Albumin of 3.2. Her screening is negative. Her left lower extremity US and CT scan report both reads diffuse subcutaneous edema. Patient is being admitted primarily for management of severe left foot infection. Diagnosis: Stroke: No - Discharge Data Discharge Date: 09/24/18 (Admit date: 09/18/18) Discharge Disposition: Home, Self-Care 01 Condition: Good - Discharge Diagnosis/Problem(s) (1) Cellulitis of left ankle SNOMED Code(s): 38021777 ICD Code: L03.116 - CELLULITIS OF LEFT LOWER LIMB Status: Acute Priority : High Current Visit: Yes (2) Cellulitis of left foot SNOMED Code(s): 055277881 ICD Code: L03.116 - CELLULITIS OF LEFT LOWER LIMB Status: Acute Priority : High Current Visit: Yes (3) Elevated C-reactive protein SNOMED Code(s): 004923363882852 ICD Code: R79.82 - ELEVATED C-REACTIVE PROTEIN (CRP) Status: Acute Priority: High Current Visit: Yes (4) IV drug user SNOMED Code(s): 997222836 ICD Code: F19.90 - OTHER PSYCHOACTIVE SUBSTANCE USE, UNSPECIFIED, UNCOMPLICATED Status: Acute Priority: High Current Visit: Yes (5) Methamphetamine abuse SNOMED Code(s): 470336766 ICD Code: F15.10 - OTHER STIMULANT ABUSE, UNCOMPLICATED Status: Acute Priority: High Current Visit: Yes (6) Neutrophilic leukocytosis SNOMED Code(s): 816926476, 067661367 ICD Code: D72.9 - DISORDER OF WHITE BLOOD CELLS, UNSPECIFIED Status: Acute Priority: High Current Visit: Yes - Patient Summary/Data Consults: Consultations 09/18/18 08:42 Consult to Case Management/Humidifier Operator [CONS] Routine Consult to Spiritual Care [CONS] Routine OT Evaluation and Treatment [CONS] Routine PT Evaluation and Treatment [CONS] Routine 09/18/18 14:02 Consult for Substance Abuse [CONS] Routine 09/21/18 09:04 Consult to Physical Therapy [PT Evaluation and Treatment] [CONS] Routine 09/21/18 12:07 Consult to Physician [CONS] Routine Labs Pending at D/C: Awaiting confirmation testing of amphetamines, amphet/meth ext, benzodiazepines , and cannabinoid. Awaiting serum vitamin E. Hospital Course: Assessment/Plan: Acute: Severe Left Foot Cellulitis With Significant Edema - 2/2 IV Drug Use - She is a known Meth user; last use was day before admission - She injects with re-used needle on her ankle - U/S shows report diffuse subcutaneous edema - CT scan report reads diffuse subcutaneous edema. No bony erosion to indicate osteomyelitis. No focal fluid collections of abscess are seen. - Foot X-ray on 09/21/18: Soft tissue swelling; Incidental calcaneal spur; No acute bony abnormality or erosion seen - WBC 32.52--> 27.85-->20.21-->16.57-->15.15-->15.25-->14.49 - CRP 37.3-->34.6-->25.4-->24.1-->17.0-->13.2 - Pain management plus NSAIDs - IV vancomycin and zosyn - PT/OT consult - PT wound care - nursing to take over but PT will monitor need for debridement - Monitor for worsening of foot infection - Wound culture ordered after blisters opened - negative so far; had already started antibiotics Poly-Substance Abuse - Ampheth/Meth, Benzos and THC positive - SARA consult, Mike consult, Kaela consult; patient refused all - Counseled on substance abuse - Per patient she was clean for 3 years after treatment and then relapsed - Multiple injection locations on extremities - SW consult - Essentially refusing all services - have offered multiple times - Reports she will stop on her own and does not need help DEVORA - Baseline eGFR and creatinine appear to be WNL - BUN 6-->6-->7 - Creatinine 0.8-->1.3-->1.4 - eGFR >60 --> 50-->46 - Has been receiving IV fluids -> Increase as ordered - 2L IV fluid bolus - Likely 2/2 poor intake and medications Resolved: E-lytes Abnormality - Hypokalemia and Hypomagnesemia - K 3.4 and Mg 1.6 - 2/2 inadequate intake; she has been sick lately - Replete and monitor Sepsis - 2/2 Severe Left Foot Infection - Tachycardia and WBC 33K plus Infection - Received IV 2 Grams of IV Rocephin x1 in ED - So far blood culture for 4 day is negative - Change antibiotic regimen to IV Vancomycin and Zosyn for pharmacy to dose Chronic: Substance Abuse: Meth and Marijuana Nicotine Dependence, Counseled on Smoking Cessation Plan: She is clinically improving Routine AM Labs SAC consult for substance abuse; patient refused UA negative for UTI Nicotine Patch Daily - initially refusing but now accepting at times Topical Hydrocortisone cream for skin rash/itching PRN QID Vitamin E level and Vitamin E 400 mg po Daily x3 doses only for anti-oxidant and wound healing Add Opioids for pain control; patient is a meth addict cannot expect to just control her pain with NSAIDs Ketorolac for anti-inflammatory agent GI/DVT PPx: H2B/Lovenox SubQ Daily PT/OT for assessment and evaluation SW/ for d/c planning Code status: Full code; PCP: None - needs to establish LOS >96HR due to need for continued IV antibiotics. Hopeful for discharge in 24 hours pending continued improvement. - Patient Instructions Diet: Usual Diet as Tolerated Activity: As Tolerated Driving: Do Not Drive Showering/Bathing: May Shower Notify Provider of: Fever, Increased Pain, Swelling and Redness, Drainage, Nausea and/or Vomiting - Discharge Plan *PRESCRIPTION DRUG MONITORING PROGRAM REVIEWED*: No *COPY OF PRESCRIPTION DRUG MONITORING REPORT IN PATIENT LINDSAY: No Home Medications: Home Meds . [No Known Home Meds] 09/17/18 [History] Oxygen Therapy Mode: Room Air Patient Handouts: Steps to Quit Smoking - Discharge Summary/Plan Comment DC Time >30 min.: Yes (45 minutes) - General Info Date of Service: 09/24/18 Admission Dx/Problem (Free Text: Admission Diagnosis/Problem Admission Diagnosis/Problem Cellulitis Functional Status: Reports: Pain Controlled, Tolerating Diet, Ambulating, Urinating. Denies: New Symptoms - Review of Systems General: Reports: No Symptoms. Denies: Fever, Weakness, Fatigue, Malaise, Chills HEENT: Reports: No Symptoms. Denies: Headaches, Sore Throat Pulmonary: Reports: No Symptoms. Denies: Shortness of Breath, Pleuritic Chest Pain, Cough, Sputum, Hemoptysis, Wheezing Cardiovascular: Reports: No Symptoms. Denies: Chest Pain, Palpitations, Dyspnea on Exertion Gastrointestinal: Reports: No Symptoms. Denies: Abdominal Pain, Constipation, Diarrhea, Nausea, Vomiting Genitourinary: Reports: No Symptoms. Denies: Pain Musculoskeletal: Reports: Leg Pain, Foot Pain Skin: Reports: No Symptoms. Denies: Cyanosis Neurological: Reports: Difficulty Walking, Gait Disturbance. Denies: Confusion Psychiatric: Reports: No Symptoms - Patient Data Vitals - Most Recent: Last Vital Signs Temp 99.5 F 09/24/18 01:12 Pulse 59 L 09/24/18 01:12 Resp 19 09/24/18 01:12 BP 129/95 H 09/24/18 01:12 Pulse Ox 99 09/24/18 01:12 Weight - Most Recent: 178 lb 14.4 oz I&O - Last 24 hours: Intake & Output 09/23/18 09/23/18 09/24/18 14:59 22:59 06:59 Intake Total 3419 2025 Balance 3419 2025 Lab Results - Last 24 hrs: Laboratory Results - last 24 hr 09/18/18 09/23/18 09/23/18 Range/Units 16:03 06:12 06:12 WBC 14.49 H (3.98-10.04) K/mm3 RBC 3.75 L (3.98-5.22) M/mm3 Hgb 11.3 (11.2-15.7) gm/L Hct 35.3 (34.1-44.9) % MCV 94.1 (79.4-94.8) fl MCH 30.1 (25.6-32.2) pg MCHC 32.0 L (32.2-35.5) g/dl RDW Std Deviation 41.5 (36.4-46.3) fL Plt Count 224 (182-369) K/mm3 MPV 10.9 (9.4-12.3) fl Neut % (Auto) 69.7 (34.0-71.1) % Lymph % (Auto) 16.1 L (19.3-51.7) % Reagan % (Auto) 6.8 (4.7-12.5) % Eos % (Auto) 3.0 (0.7-5.8) Baso % (Auto) 0.3 (0.1-1.2) % Neut # (Auto) 10.10 H (1.56-6.13) K/mm3 Lymph # (Auto) 2.33 (1.18-3.74) K/mm3 Reagan # (Auto) 0.99 H (0.24-0.36) K/mm3 Eos # (Auto) 0.43 H (0.04-0.36) K/mm3 Baso # (Auto) 0.04 (0.01-0.08) K/mm3 Manual Slide Review Abnormal smear Sodium 143 (136-145) mEq/L Potassium 4.2 (3.5-5.1) mEq/L Chloride 107 (98-107) mEq/L Carbon Dioxide 26 (21-32) mEq/L Anion Gap 14.2 (5-15) BUN 7 (7-18) mg/dL Creatinine 1.4 H (0.55-1.02) mg/dL Est Cr Clr Drug Dosing 50.81 mL/min Estimated GFR (MDRD) 46 (>60) mL/min BUN/Creatinine Ratio 5.0 L (14-18) Glucose 89 (74-106) mg/dL Calcium 9.2 (8.5-10.1) mg/dL Magnesium 2.1 (1.8-2.4) mg/dl C-Reactive Protein 13.2 H* (<1.0) mg/dL Random Vancomycin 11.0 ug/mL Ur Oxycodone Screen Negative (Cutoff:=100) ng/mL FRANCIS Results - Last 24 hrs: Microbiology 09/17/18 23:00 Aerobic Blood Culture - Preliminary Blood - Venous NO GROWTH AFTER 6 DAYS Anaerobic Blood Culture - Preliminary NO GROWTH AFTER 6 DAYS 09/17/18 23:05 Aerobic Blood Culture - Preliminary Blood - Venous - Lab Draw NO GROWTH AFTER 6 DAYS Anaerobic Blood Culture - Final 09/21/18 11:15 Gram Stain - Final Ankle, Left Anaerobic Culture - Preliminary Med Orders - Current: Current Medications Acetaminophen (Tylenol) 650 mg PO Q4H PRN PRN Reason: Pain (Mild 1-3)/fever Hydrocodone Bitart/Acetaminophen ([place] 325-5 Mg) 1 tab PO Q4H PRN PRN Reason: Pain Last Admin: 09/24/18 05:18 Dose: 1 tab Albuterol/Ipratropium (Duoneb 3.0-0.5 Mg/3 Ml) 3 ml NEB Q4H PRN PRN Reason: Shortness Of Breath/wheezing Bisacodyl (Dulcolax) 5 mg PO DAILY PRN PRN Reason: Constipation Docusate Sodium (Colace) 100 mg PO BID PRN PRN Reason: Constipation Enoxaparin Sodium (Lovenox) 40 mg SUBCUT DAILY [facility] Last Admin: 09/23/18 09:03 Dose: 40 mg Famotidine (Pepcid) 20 mg PO BID [facility] Last Admin: 09/23/18 20:36 Dose: 20 mg Hydralazine HCl (Apresoline) 20 mg IVPUSH Q4H PRN PRN Reason: Hypertension Hydrocortisone (Hydrocortisone 1% Crm) 0 gm TOP QID PRN PRN Reason: Rash/Itching Last Admin: 09/19/18 12:44 Dose: 1 applic Hydromorphone HCl (Dilaudid) 0.5 mg IVPUSH Q6H PRN PRN Reason: Pain (severe 7-10) Last Admin: 09/23/18 11:07 Dose: 0.5 mg Piperacillin Sod/Tazobactam (Sod 4.5 gm/ Sodium Chloride) 100 mls @ 25 mls/hr IV Q8H [facility] Last Admin: 09/24/18 00:12 Dose: 25 mls/hr Vancomycin HCl 1 gm/ Sodium (Chloride) 250 mls @ 250 mls/hr IV Q12H [facility] Last Admin: 09/23/18 20:37 Dose: 250 mls/hr Sodium Chloride (Normal Saline) 1,000 mls @ 75 mls/hr IV ASDIRECTED [facility] Last Admin: 09/23/18 15:52 Dose: 75 mls/hr Lorazepam (Ativan) 0.5 mg IVPUSH Q4H PRN PRN Reason: Withdrawal Symptoms Lorazepam (Ativan) 2 mg IVPUSH Q4H PRN PRN Reason: Seizures Lorazepam (Ativan) 1 mg IV Q6H PRN PRN Reason: Anxiety Last Admin: 09/20/18 00:34 Dose: 1 mg Metoprolol Tartrate (Lopressor) 5 mg IVPUSH Q4H PRN PRN Reason: Tachycardia Miscellaneous Information (Remove Patch) 1 ea TRDERM DAILY [facility] Last Admin: 09/23/18 09:03 Dose: Not Given Nicotine (Habitrol) 21 mg TRDERM DAILY [facility] Last Admin: 09/23/18 09:03 Dose: Not Given Ondansetron HCl (Zofran) 4 mg IV Q6H PRN PRN Reason: Nausea/Vomiting Last Admin: 09/19/18 09:52 Dose: 4 mg Polyethylene Glycol (Miralax) 17 gm PO DAILY PRN PRN Reason: Constipation Saccharomyces Boulardii (Florastor) 250 mg PO BID [facility] Last Admin: 09/23/18 20:37 Dose: 250 mg Senna/Docusate Sodium (Senna Plus) 1 tab PO BID PRN PRN Reason: Constipation Temazepam (Restoril) 15 mg PO BEDTIME PRN PRN Reason: Sleep Last Admin: 09/24/18 01:08 Dose: 15 mg Vancomycin HCl (Pharmacy To Dose - Vancomycin) 0 dose .XX ASDIRECTED PRN PRN Reason: RX TO DOSE VANCO Discontinued Medications Famotidine (Pepcid) 20 mg IVPUSH ONETIME ONE Stop: 09/18/18 09:01 Last Admin: 09/18/18 09:20 Dose: 20 mg Fentanyl (Sublimaze) 100 mcg IVPUSH ONETIME ONE Stop: 09/19/18 20:27 Last Admin: 09/20/18 01:07 Dose: Not Given Fentanyl (Sublimaze) 100 mcg IM STAT ONE Stop: 09/19/18 21:27 Last Admin: 09/19/18 21:38 Dose: 100 mcg Fentanyl (Sublimaze) 100 mcg IM ONETIME ONE Stop: 09/19/18 22:51 Last Admin: 09/19/18 22:59 Dose: 100 mcg Hydromorphone HCl (Dilaudid) 0.5 mg IVPUSH ONETIME ONE Stop: 09/18/18 07:14 Last Admin: 09/18/18 07:27 Dose: 0.5 mg Hydromorphone HCl (Dilaudid) 0.5 mg IVPUSH ONETIME ONE Stop: 09/23/18 13:11 Last Admin: 09/23/18 13:38 Dose: 0.5 mg Ceftriaxone Sodium 2 gm/ (Sodium Chloride) 100 mls @ 200 mls/hr IV Q24H [facility] Last Admin: 09/17/18 23:53 Dose: 200 mls/hr Sodium Chloride (Normal Saline) Confirm Administered Dose 1,000 mls @ as directed .ROUTE .STK-MED ONE Stop: 09/18/18 01:15 Last Admin: 09/18/18 02:35 Dose: Not Given Sodium Chloride (Normal Saline) 1,000 mls @ 125 mls/hr IV ASDIRECTED [facility] Last Admin: 09/19/18 02:23 Dose: 125 mls/hr Ceftriaxone Sodium 2 gm/ (Sodium Chloride) 100 mls @ 200 mls/hr IV Q24H [facility] Last Admin: 09/18/18 11:47 Dose: 200 mls/hr Piperacillin Sod/Tazobactam (Sod 4.5 gm/ Sodium Chloride) 100 mls @ 25 mls/hr IV Q8H [facility] Last Admin: 09/19/18 21:27 Dose: Not Given Piperacillin Sod/Tazobactam (Sod 4.5 gm/ Sodium Chloride) 100 mls @ 200 mls/hr IV ONETIME ONE Stop: 09/18/18 19:44 Last Admin: 09/18/18 20:52 Dose: 200 mls/hr Vancomycin HCl 1 gm/ Sodium (Chloride) 250 mls @ 250 mls/hr IV Q8H [facility] Last Admin: 09/19/18 21:28 Dose: Not Given Sodium Chloride (Normal Saline) 1,000 mls @ 50 mls/hr IV ASDIRECTED [facility] Last Admin: 09/22/18 08:04 Dose: 50 mls/hr Magnesium Sulfate 2 gm/ Premix 50 mls @ 25 mls/hr IV ONETIME ONE Stop: 09/19/18 12:44 Last Admin: 09/19/18 12:08 Dose: 25 mls/hr Vancomycin HCl 1 gm/ Sodium (Chloride) 250 mls @ 250 mls/hr IV Q8H [facility] Last Admin: 09/20/18 01:38 Dose: Not Given Vancomycin HCl 1 gm/ Sodium (Chloride) 250 mls @ 250 mls/hr IV Q8H [facility] Last Admin: 09/21/18 02:49 Dose: Not Given Vancomycin HCl 1 gm/Vancomycin HCl 250 mg/ Sodium Chloride 500 mls @ 333.333 mls/hr IV Q8H [facility] Last Admin: 09/21/18 03:09 Dose: 250 mls/hr Vancomycin HCl 1 gm/Vancomycin HCl 250 mg/ Sodium Chloride 250 mls @ 166.667 mls/hr IV Q8H [facility] Last Admin: 09/22/18 11:30 Dose: Not Given Magnesium Sulfate 2 gm/ Premix 50 mls @ 25 mls/hr IV ONETIME ONE Stop: 09/21/18 15:16 Last Admin: 09/21/18 15:32 Dose: 25 mls/hr Sodium Chloride (Normal Saline) 1,000 mls @ 125 mls/hr IV ASDIRECTED [facility] Stop: 09/22/18 20:00 Last Admin: 09/22/18 11:31 Dose: 125 mls/hr Sodium Chloride (Normal Saline) 1,000 mls @ 50 mls/hr IV ASDIRECTED [facility] Last Admin: 09/22/18 19:13 Dose: 50 mls/hr Sodium Chloride (Normal Saline) 1,000 mls @ 999 mls/hr IV ASDIRECTED ONE Stop: 09/23/18 14:00 Last Admin: 09/23/18 13:37 Dose: 999 mls/hr Sodium Chloride (Normal Saline) 1,000 mls @ 999 mls/hr IV ONETIME ONE Stop: 09/23/18 15:25 Last Admin: 09/23/18 14:47 Dose: 999 mls/hr Iopamidol (Isovue-370 (76%)) 100 ml IV ONETIME ONE Stop: 09/17/18 22:27 Last Admin: 09/18/18 02:33 Dose: Not Given Ketorolac Tromethamine (Toradol) 60 mg IM ONETIME ONE Stop: 09/17/18 21:43 Last Admin: 09/17/18 21:47 Dose: 60 mg Ketorolac Tromethamine (Toradol) 60 mg IM ONETIME ONE Stop: 09/17/18 21:44 Last Admin: 09/17/18 21:49 Dose: Not Given Ketorolac Tromethamine (Toradol) 30 mg IM Q6H PRN PRN Reason: Pain (moderate 4-6) Last Admin: 09/20/18 08:40 Dose: 30 mg Ketorolac Tromethamine (Toradol) 30 mg IVPUSH Q6H PRN PRN Reason: Pain (moderate 4-6) Last Admin: 09/21/18 21:33 Dose: 30 mg Lidocaine HCl (Xylocaine 1%) 10 ml INJECT ONETIME ONE Stop: 09/19/18 20:27 Last Admin: 09/19/18 23:02 Dose: 10 ml Lidocaine/Tetracaine (Let Soln) 3 ml TOP ONETIME ONE Stop: 09/23/18 13:12 Last Admin: 09/23/18 13:37 Dose: 3 ml Magnesium Sulfate (Pharmacy To Dose - Magnesium Replacement) 0 dose .XX ASDIRECTED PRN PRN Reason: RX TO WATCH MAG Midazolam HCl (Versed 1 Mg/Ml) 5 mg IVPUSH ONETIME ONE Stop: 09/19/18 20:26 Last Admin: 09/20/18 01:06 Dose: Not Given Midazolam HCl (Versed 1 Mg/Ml) 4 mg IM STAT ONE Stop: 09/19/18 21:27 Last Admin: 09/19/18 21:36 Dose: 4 mg Potassium Chloride (Pharmacy To Dose - Potassium Replacement) 0 dose .XX ASDIRECTED PRN PRN Reason: RX TO WATCH K Potassium Chloride (Klor-Con M20) 40 meq PO ONETIME ONE Stop: 09/18/18 09:16 Last Admin: 09/18/18 09:20 Dose: 40 meq Potassium Chloride (Klor-Con M20) 40 meq PO Q4H [facility] Stop: 09/19/18 14:46 Last Admin: 09/19/18 15:30 Dose: 40 meq Scopolamine (Transderm-Scop) 1.5 mg TRDERM Q72H ONE Stop: 09/19/18 09:49 Last Admin: 09/19/18 10:16 Dose: 1.5 mg Tramadol HCl (Ultram) 50 mg PO ONETIME ONE Stop: 09/17/18 21:44 Last Admin: 09/17/18 21:48 Dose: 50 mg Tramadol HCl (Ultram) 100 mg PO ONETIME ONE Stop: 09/17/18 21:44 Last Admin: 09/17/18 21:49 Dose: Not Given Vancomycin HCl (Vancomycin) Confirm Administered Dose 1 gm .ROUTE .STK-MED ONE Stop: 09/23/18 20:24 Last Admin: 09/23/18 22:59 Dose: Not Given Vitamin E (Vitamin E) 400 units PO DAILY [facility] Stop: 09/22/18 09:01 Last Admin: 09/22/18 08:00 Dose: 400 units - Exam Quality Assessment: Reports: DVT Prophylaxis General: Reports: Alert, Oriented, Cooperative, No Acute Distress HEENT: Reports: Pupils Equal, Pupils Reactive, EOMI, Mucous Membr. Moist/[place]: Reports: Supple, Trachea Midline, No JVD Lungs: Reports: Clear to Auscultation, Normal Respiratory Effort Cardiovascular: Reports: Regular Rate, Regular Rhythm GI/Abdominal Exam: Normal Bowel Sounds, Soft, Non-Tender, No Organomegaly, No Distention (Female) Exam: Deferred Rectal (Female) Exam: Deferred Back Exam: Reports: Normal Inspection, Full Range of Motion Extremities: Normal Range of Motion, No Pedal Edema, Normal Capillary Refill, Leg Pain, Redness (improving ), Other (warmth improving. Open blisters which PT has been debridement ) Skin: Reports: Warm, Dry, Intact Wound/Incisions: Reports: Healing Well, Drainage, Erythema Improving Neurological: Reports: No New Focal Deficit Psy/Mental Status: Reports: Alert, Normal Mood
[2018-09-24] MEDS: Famotidine 20 MG Tab PO SCH ×2 (08:22→20:58)
[2018-09-24] MEDS: Saccharomyces Boulardii (Probiotic) 250 MG Cap PO SCH ×2 (08:22→20:55)
[2018-09-24] MEDS: Enoxaparin 40 MG/0.4 ML Syringe SUBCUT SCH (08:28)
[2018-09-24] MEDS: Nicotine 21 MG/24 Hr Patch TRDERM SCH (08:28)
--- NOTE | 2018-09-24 09:53 | PCM.PN ---
- General Info Date of Service: 09/24/18 Subjective Update: In to see Maribel with charge nurse Lima and Dr. Smalls. Her foot has continued to improve and looks even better than yesterday. Minimal erythema noted. Creatinine has continued to climb and is up to 1.5 today. Will discontinue vancomycin and continue zosyn. Wound culture and blood cultures continue to have no growth. IV fluids have been continued. Functional Status: Reports: Pain Controlled (for the most part ), Tolerating Diet, Ambulating, Urinating. Denies: New Symptoms - Review of Systems General: Denies: Fever, Weakness, Fatigue, Malaise HEENT: Reports: No Symptoms. Denies: Headaches, Sore Throat Pulmonary: Reports: No Symptoms. Denies: Shortness of Breath, Pleuritic Chest Pain, Cough, Sputum, Wheezing Cardiovascular: Reports: No Symptoms, Edema (left foot - improving ). Denies: Chest Pain, Palpitations, Dyspnea on Exertion, Lightheadedness Gastrointestinal: Reports: No Symptoms. Denies: Abdominal Pain, Constipation, Diarrhea, Nausea, Vomiting Genitourinary: Reports: No Symptoms. Denies: Pain Musculoskeletal: Reports: Leg Pain, Foot Pain Skin: Reports: No Symptoms. Denies: Cyanosis Neurological: Reports: Difficulty Walking, Gait Disturbance. Denies: Confusion , Dizziness, Trouble Speaking Psychiatric: Reports: No Symptoms - Patient Data Vitals - Most Recent: Last Vital Signs Temp 99.5 F 09/24/18 01:12 Pulse 59 L 09/24/18 01:12 Resp 19 09/24/18 01:12 BP 129/95 H 09/24/18 01:12 Pulse Ox 99 09/24/18 01:12 Weight - Most Recent: 178 lb 14.4 oz I&O - Last 24 Hours: Intake & Output 09/23/18 09/24/18 09/24/18 22:59 06:59 14:59 Intake Total 3419 2025 Balance 3419 2025 Lab Results Last 24 Hours: Laboratory Results - last 24 hr 09/18/18 09/24/18 09/24/18 Range/Units 16:03 06:40 06:40 WBC 14.19 H (3.98-10.04) K/mm3 RBC 3.39 L (3.98-5.22) M/mm3 Hgb 10.4 L (11.2-15.7) gm/L Hct 32.2 L (34.1-44.9) % MCV 95.0 H (79.4-94.8) fl MCH 30.7 (25.6-32.2) pg MCHC 32.3 (32.2-35.5) g/dl RDW Std Deviation 41.7 (36.4-46.3) fL Plt Count 232 (182-369) K/mm3 MPV 11.1 (9.4-12.3) fl Neut % (Auto) 72.3 H (34.0-71.1) % Lymph % (Auto) 14.9 L (19.3-51.7) % [place] % (Auto) 6.4 (4.7-12.5) % Eos % (Auto) 2.5 (0.7-5.8) Baso % (Auto) 0.2 (0.1-1.2) % Neut # (Auto) 10.26 H (1.56-6.13) K/mm3 Lymph # (Auto) 2.11 (1.18-3.74) K/mm3 [place] # (Auto) 0.91 H (0.24-0.36) K/mm3 Eos # (Auto) 0.36 (0.04-0.36) K/mm3 Baso # (Auto) 0.03 (0.01-0.08) K/mm3 Manual Slide Review Abnormal smear Sodium 141 (136-145) mEq/L Potassium 3.7 (3.5-5.1) mEq/L Chloride 107 (98-107) mEq/L Carbon Dioxide 26 (21-32) mEq/L Anion Gap 11.7 (5-15) BUN 4 L (7-18) mg/dL Creatinine 1.5 H (0.55-1.02) mg/dL Est Cr Clr Drug Dosing 47.43 mL/min Estimated GFR (MDRD) 42 (>60) mL/min BUN/Creatinine Ratio 2.7 L (14-18) Glucose 82 (74-106) mg/dL Calcium 8.9 (8.5-10.1) mg/dL Magnesium 1.9 (1.8-2.4) mg/dl C-Reactive Protein 9.2 H* (<1.0) mg/dL Ur Oxycodone Screen Negative (Cutoff:=100) ng/mL Franco Results Last 24 Hours: Microbiology 09/21/18 11:15 Gram Stain - Final Ankle, Left Anaerobic Culture - Preliminary 09/17/18 23:00 Aerobic Blood Culture - Preliminary Blood - Venous NO GROWTH AFTER 6 DAYS Anaerobic Blood Culture - Preliminary NO GROWTH AFTER 6 DAYS 09/17/18 23:05 Aerobic Blood Culture - Preliminary Blood - Venous - Lab Draw NO GROWTH AFTER 6 DAYS Anaerobic Blood Culture - Final Med Orders - Current: Current Medications Acetaminophen (Tylenol) 650 mg PO Q4H PRN PRN Reason: Pain (Mild 1-3)/fever Hydrocodone Bitart/Acetaminophen (Alpha 325-5 Mg) 1 tab PO Q4H PRN PRN Reason: Pain Last Admin: 09/24/18 09:38 Dose: 1 tab Albuterol/Ipratropium (Duoneb 3.0-0.5 Mg/3 Ml) 3 ml NEB Q4H PRN PRN Reason: Shortness Of Breath/wheezing Bisacodyl (Dulcolax) 5 mg PO DAILY PRN PRN Reason: Constipation Docusate Sodium (Colace) 100 mg PO BID PRN PRN Reason: Constipation Enoxaparin Sodium (Lovenox) 40 mg SUBCUT DAILY [facility] Last Admin: 09/24/18 08:28 Dose: 40 mg Famotidine (Pepcid) 20 mg PO BID [facility] Last Admin: 09/24/18 08:22 Dose: 20 mg Hydralazine HCl (Apresoline) 20 mg IVPUSH Q4H PRN PRN Reason: Hypertension Hydrocortisone (Hydrocortisone 1% Crm) 0 gm TOP QID PRN PRN Reason: Rash/Itching Last Admin: 09/19/18 12:44 Dose: 1 applic Hydromorphone HCl (Dilaudid) 0.5 mg IVPUSH Q6H PRN PRN Reason: Pain (severe 7-10) Last Admin: 09/23/18 11:07 Dose: 0.5 mg Ampicillin Sodium/Sulbactam (Sodium 3 gm/ Sodium Chloride) 100 mls @ 200 mls/ hr IV Q8H [facility] Sodium Chloride (Normal Saline) 1,000 mls @ 125 mls/hr IV ASDIRECTED [facility] Lorazepam (Ativan) 0.5 mg IVPUSH Q4H PRN PRN Reason: Withdrawal Symptoms Lorazepam (Ativan) 2 mg IVPUSH Q4H PRN PRN Reason: Seizures Lorazepam (Ativan) 1 mg IV Q6H PRN PRN Reason: Anxiety Last Admin: 09/20/18 00:34 Dose: 1 mg Metoprolol Tartrate (Lopressor) 5 mg IVPUSH Q4H PRN PRN Reason: Tachycardia Miscellaneous Information (Remove Patch) 1 ea TRDERM DAILY [facility] Last Admin: 09/23/18 09:03 Dose: Not Given Nicotine (Habitrol) 21 mg TRDERM DAILY [facility] Last Admin: 09/24/18 08:28 Dose: Not Given Ondansetron HCl (Zofran) 4 mg IV Q6H PRN PRN Reason: Nausea/Vomiting Last Admin: 09/19/18 09:52 Dose: 4 mg Polyethylene Glycol (Miralax) 17 gm PO DAILY PRN PRN Reason: Constipation Saccharomyces Boulardii (Florastor) 250 mg PO BID [facility] Last Admin: 09/24/18 08:22 Dose: 250 mg Senna/Docusate Sodium (Senna Plus) 1 tab PO BID PRN PRN Reason: Constipation Temazepam (Restoril) 15 mg PO BEDTIME PRN PRN Reason: Sleep Last Admin: 09/24/18 01:08 Dose: 15 mg Vancomycin HCl (Pharmacy To Dose - Vancomycin) 0 dose .XX ASDIRECTED PRN PRN Reason: RX TO DOSE VANCO Discontinued Medications Famotidine (Pepcid) 20 mg IVPUSH ONETIME ONE Stop: 09/18/18 09:01 Last Admin: 09/18/18 09:20 Dose: 20 mg Fentanyl (Sublimaze) 100 mcg IVPUSH ONETIME ONE Stop: 09/19/18 20:27 Last Admin: 09/20/18 01:07 Dose: Not Given Fentanyl (Sublimaze) 100 mcg IM STAT ONE Stop: 09/19/18 21:27 Last Admin: 09/19/18 21:38 Dose: 100 mcg Fentanyl (Sublimaze) 100 mcg IM ONETIME ONE Stop: 09/19/18 22:51 Last Admin: 09/19/18 22:59 Dose: 100 mcg Hydromorphone HCl (Dilaudid) 0.5 mg IVPUSH ONETIME ONE Stop: 09/18/18 07:14 Last Admin: 09/18/18 07:27 Dose: 0.5 mg Hydromorphone HCl (Dilaudid) 0.5 mg IVPUSH ONETIME ONE Stop: 09/23/18 13:11 Last Admin: 09/23/18 13:38 Dose: 0.5 mg Ceftriaxone Sodium 2 gm/ (Sodium Chloride) 100 mls @ 200 mls/hr IV Q24H [facility] Last Admin: 09/17/18 23:53 Dose: 200 mls/hr Sodium Chloride (Normal Saline) Confirm Administered Dose 1,000 mls @ as directed .ROUTE .STK-MED ONE Stop: 09/18/18 01:15 Last Admin: 09/18/18 02:35 Dose: Not Given Sodium Chloride (Normal Saline) 1,000 mls @ 125 mls/hr IV ASDIRECTED [facility] Last Admin: 09/19/18 02:23 Dose: 125 mls/hr Ceftriaxone Sodium 2 gm/ (Sodium Chloride) 100 mls @ 200 mls/hr IV Q24H [facility] Last Admin: 09/18/18 11:47 Dose: 200 mls/hr Piperacillin Sod/Tazobactam (Sod 4.5 gm/ Sodium Chloride) 100 mls @ 25 mls/hr IV Q8H [facility] Last Admin: 09/19/18 21:27 Dose: Not Given Piperacillin Sod/Tazobactam (Sod 4.5 gm/ Sodium Chloride) 100 mls @ 200 mls/hr IV ONETIME ONE Stop: 09/18/18 19:44 Last Admin: 09/18/18 20:52 Dose: 200 mls/hr Vancomycin HCl 1 gm/ Sodium (Chloride) 250 mls @ 250 mls/hr IV Q8H [facility] Last Admin: 09/19/18 21:28 Dose: Not Given Sodium Chloride (Normal Saline) 1,000 mls @ 50 mls/hr IV ASDIRECTED [facility] Last Admin: 09/22/18 08:04 Dose: 50 mls/hr Magnesium Sulfate 2 gm/ Premix 50 mls @ 25 mls/hr IV ONETIME ONE Stop: 09/19/18 12:44 Last Admin: 09/19/18 12:08 Dose: 25 mls/hr Vancomycin HCl 1 gm/ Sodium (Chloride) 250 mls @ 250 mls/hr IV Q8H [facility] Last Admin: 09/20/18 01:38 Dose: Not Given Piperacillin Sod/Tazobactam (Sod 4.5 gm/ Sodium Chloride) 100 mls @ 25 mls/hr IV Q8H [facility] Last Admin: 09/24/18 09:31 Dose: 25 mls/hr Vancomycin HCl 1 gm/ Sodium (Chloride) 250 mls @ 250 mls/hr IV Q8H [facility] Last Admin: 09/21/18 02:49 Dose: Not Given Vancomycin HCl 1 gm/Vancomycin HCl 250 mg/ Sodium Chloride 500 mls @ 333.333 mls/hr IV Q8H [facility] Last Admin: 09/21/18 03:09 Dose: 250 mls/hr Vancomycin HCl 1 gm/Vancomycin HCl 250 mg/ Sodium Chloride 250 mls @ 166.667 mls/hr IV Q8H [facility] Last Admin: 09/22/18 11:30 Dose: Not Given Magnesium Sulfate 2 gm/ Premix 50 mls @ 25 mls/hr IV ONETIME ONE Stop: 09/21/18 15:16 Last Admin: 09/21/18 15:32 Dose: 25 mls/hr Sodium Chloride (Normal Saline) 1,000 mls @ 125 mls/hr IV ASDIRECTED [facility] Stop: 09/22/18 20:00 Last Admin: 09/22/18 11:31 Dose: 125 mls/hr Sodium Chloride (Normal Saline) 1,000 mls @ 50 mls/hr IV ASDIRECTED [facility] Last Admin: 09/22/18 19:13 Dose: 50 mls/hr Vancomycin HCl 1 gm/ Sodium (Chloride) 250 mls @ 250 mls/hr IV Q12H [facility] Last Admin: 09/24/18 08:23 Dose: 250 mls/hr Sodium Chloride (Normal Saline) 1,000 mls @ 999 mls/hr IV ASDIRECTED ONE Stop: 09/23/18 14:00 Last Admin: 09/23/18 13:37 Dose: 999 mls/hr Sodium Chloride (Normal Saline) 1,000 mls @ 999 mls/hr IV ONETIME ONE Stop: 09/23/18 15:25 Last Admin: 09/23/18 14:47 Dose: 999 mls/hr Sodium Chloride (Normal Saline) 1,000 mls @ 75 mls/hr IV ASDIRECTED [facility] Last Admin: 09/23/18 15:52 Dose: 75 mls/hr Iopamidol (Isovue-370 (76%)) 100 ml IV ONETIME ONE Stop: 09/17/18 22:27 Last Admin: 09/18/18 02:33 Dose: Not Given Ketorolac Tromethamine (Toradol) 60 mg IM ONETIME ONE Stop: 09/17/18 21:43 Last Admin: 09/17/18 21:47 Dose: 60 mg Ketorolac Tromethamine (Toradol) 60 mg IM ONETIME ONE Stop: 09/17/18 21:44 Last Admin: 09/17/18 21:49 Dose: Not Given Ketorolac Tromethamine (Toradol) 30 mg IM Q6H PRN PRN Reason: Pain (moderate 4-6) Last Admin: 09/20/18 08:40 Dose: 30 mg Ketorolac Tromethamine (Toradol) 30 mg IVPUSH Q6H PRN PRN Reason: Pain (moderate 4-6) Last Admin: 09/21/18 21:33 Dose: 30 mg Lidocaine HCl (Xylocaine 1%) 10 ml INJECT ONETIME ONE Stop: 09/19/18 20:27 Last Admin: 09/19/18 23:02 Dose: 10 ml Lidocaine/Tetracaine (Let Soln) 3 ml TOP ONETIME ONE Stop: 09/23/18 13:12 Last Admin: 09/23/18 13:37 Dose: 3 ml Magnesium Sulfate (Pharmacy To Dose - Magnesium Replacement) 0 dose .XX ASDIRECTED PRN PRN Reason: RX TO WATCH MAG Midazolam HCl (Versed 1 Mg/Ml) 5 mg IVPUSH ONETIME ONE Stop: 09/19/18 20:26 Last Admin: 09/20/18 01:06 Dose: Not Given Midazolam HCl (Versed 1 Mg/Ml) 4 mg IM STAT ONE Stop: 09/19/18 21:27 Last Admin: 09/19/18 21:36 Dose: 4 mg Potassium Chloride (Pharmacy To Dose - Potassium Replacement) 0 dose .XX ASDIRECTED PRN PRN Reason: RX TO WATCH K Potassium Chloride (Klor-Con M20) 40 meq PO ONETIME ONE Stop: 09/18/18 09:16 Last Admin: 09/18/18 09:20 Dose: 40 meq Potassium Chloride (Klor-Con M20) 40 meq PO Q4H [facility] Stop: 09/19/18 14:46 Last Admin: 09/19/18 15:30 Dose: 40 meq Scopolamine (Transderm-Scop) 1.5 mg TRDERM Q72H ONE Stop: 09/19/18 09:49 Last Admin: 09/19/18 10:16 Dose: 1.5 mg Tramadol HCl (Ultram) 50 mg PO ONETIME ONE Stop: 09/17/18 21:44 Last Admin: 09/17/18 21:48 Dose: 50 mg Tramadol HCl (Ultram) 100 mg PO ONETIME ONE Stop: 09/17/18 21:44 Last Admin: 09/17/18 21:49 Dose: Not Given Vancomycin HCl (Vancomycin) Confirm Administered Dose 1 gm .ROUTE .STK-MED ONE Stop: 09/23/18 20:24 Last Admin: 09/23/18 22:59 Dose: Not Given Vitamin E (Vitamin E) 400 units PO DAILY [facility] Stop: 09/22/18 09:01 Last Admin: 09/22/18 08:00 Dose: 400 units - Exam Quality Assessment: DVT Prophylaxis General: Alert, Oriented, Cooperative, No Acute Distress HEENT: Pupils Equal, Pupils Reactive, EOMI, Mucous Membr. Moist/[place] Neck: Supple, Trachea Midline Lungs: Clear to Auscultation, Normal Respiratory Effort Cardiovascular: Regular Rate, Regular Rhythm GI/Abdominal Exam: Normal Bowel Sounds, Soft, Non-Tender, No Organomegaly, No Distention (Female) Exam: Deferred Back Exam: Normal Inspection, Full Range of Motion Extremities: Normal Inspection, Normal Range of Motion, Pedal Edema (left sided - improving ), Leg Pain. No: Increased Warmth Peripheral Pulses: 2+: Radial (L), Radial (R), Dorsalis Pedis (L), Dorsalis Pedis (R) Skin: Warm, Dry, Intact Wound/Incisions: Drainage (improving ), Erythema Improving, Other Neurological: No New Focal Deficit Psy/Mental Status: Alert, Normal Affect, Normal Mood - Problem List & Annotations (1) Cellulitis of left ankle SNOMED Code(s): 27610015 Code(s): L03.116 - CELLULITIS OF LEFT LOWER LIMB Status: Acute Priority: High Current Visit: Yes (2) Cellulitis of left foot SNOMED Code(s): 621989565 Code(s): L03.116 - CELLULITIS OF LEFT LOWER LIMB Status: Acute Priority: High Current Visit: Yes (3) Elevated C-reactive protein SNOMED Code(s): 592423125550906 Code(s): R79.82 - ELEVATED C-REACTIVE PROTEIN (CRP) Status: Acute Priority: High Current Visit: Yes (4) IV drug user SNOMED Code(s): 256273344 Code(s): F19.90 - OTHER PSYCHOACTIVE SUBSTANCE USE, UNSPECIFIED, UNCOMPLICATED Status: Acute Priority: High Current Visit: Yes (5) Methamphetamine abuse SNOMED Code(s): 523041881 Code(s): F15.10 - OTHER STIMULANT ABUSE, UNCOMPLICATED Status: Acute Priority: High Current Visit: Yes (6) Neutrophilic leukocytosis SNOMED Code(s): 525921386, 254034429 Code(s): D72.9 - DISORDER OF WHITE BLOOD CELLS, UNSPECIFIED Status: Acute Priority: High Current Visit: Yes (7) DEVORA (acute kidney injury) SNOMED Code(s): 56588731 Code(s): N17.9 - ACUTE KIDNEY FAILURE, UNSPECIFIED Status: Acute Current Visit: Yes - Problem List Review Problem List Initiated/Reviewed/Updated: Yes - My Orders Last 24 Hours: My Active Orders 09/24/18 10:00 Ampicillin/Sulbactam Na [Unasyn] 3 gm Sodium Chloride 0.9% [Normal Saline] 100 ml IV Q8H Sodium Chloride 0.9% [Normal Saline] 1,000 ml IV ASDIRECTED 09/25/18 05:11 BASIC METABOLIC PANEL,BMP [CHEM] AM CBC WITH AUTO DIFF [HEME] AM CRP [C-REACTIVE PROTEIN] [CHEM] AM MAGNESIUM [CHEM] AM 09/26/18 05:11 BASIC METABOLIC PANEL,BMP [CHEM] AM CBC WITH AUTO DIFF [HEME] AM CRP [C-REACTIVE PROTEIN] [CHEM] AM MAGNESIUM [CHEM] AM - Plan Plan:: Assessment/Plan: Acute: Severe Left Foot Cellulitis With Significant Edema - 2/2 IV Drug Use - She is a known Meth user; last use was day before admission - She injects with re-used needle on her ankle - U/S shows report diffuse subcutaneous edema - CT scan report reads diffuse subcutaneous edema. No bony erosion to indicate osteomyelitis. No focal fluid collections of abscess are seen. - Foot X-ray on 09/21/18: Soft tissue swelling; Incidental calcaneal spur; No acute bony abnormality or erosion seen - WBC 32.52--> 27.85-->20.21-->16.57-->15.15-->15.25-->14.49-->14.19 - CRP 37.3-->34.6-->25.4-->24.1-->17.0-->13.2-->9.2 - Pain management plus NSAIDs - IV vancomycin and zosyn -> discontinue vancomycin based on worsening renal function - PT/OT consult - PT wound care - nursing to take over but PT will monitor need for debridement - Monitor for worsening of foot infection - Wound culture ordered after blisters opened - negative so far; had already started antibiotics Poly-Substance Abuse - Ampheth/Meth, Benzos and THC positive - SARA consult, Mike consult, Kaela consult; patient refused all - Counseled on substance abuse - Per patient she was clean for 3 years after treatment and then relapsed - Multiple injection locations on extremities - consult - Essentially refusing all services - have offered multiple times - Reports she will stop on her own and does not need help DEVORA - Baseline eGFR and creatinine appear to be WNL - BUN 6-->6-->7-->4.0 - Creatinine 0.8-->1.3-->1.4-->1.5 - eGFR >60 --> 50-->46-->42 - Has been receiving IV fluids -> Increase as ordered - 2L IV fluid bolus given yesterday - Likely 2/2 poor intake and medications Resolved: E-lytes Abnormality - Hypokalemia and Hypomagnesemia - K 3.4 and Mg 1.6 - 2/2 inadequate intake; she has been sick lately - Replete and monitor Sepsis - 2/2 Severe Left Foot Infection - Tachycardia and WBC 33K plus Infection - Received IV 2 Grams of IV Rocephin x1 in ED - So far blood culture for 4 day is negative - Change antibiotic regimen to IV Vancomycin and Zosyn for pharmacy to dose Chronic: Substance Abuse: Meth and Marijuana Nicotine Dependence, Counseled on Smoking Cessation Plan: She is clinically improving Routine AM Labs SAC consult for substance abuse; patient refused UA negative for UTI Nicotine Patch Daily - initially refusing but now accepting at times Topical Hydrocortisone cream for skin rash/itching PRN QID Vitamin E level and Vitamin E 400 mg po Daily x3 doses only for anti-oxidant and wound healing Add Opioids for pain control; patient is a meth addict cannot expect to just control her pain with NSAIDs Ketorolac for anti-inflammatory agent GI/DVT PPx: H2B/Lovenox SubQ Daily PT/OT for assessment and evaluation SW/CM for d/c planning Code status: Full code; PCP: None - needs to establish LOS >96HR due to need for continued IV antibiotics, worsening renal function.
[2018-09-24] MEDS ORDERED: Ampicillin/Sulbactam Na 3 GM in Sodium Chloride 0.9% 100 ML IV SCH (10:00)
[2018-09-24] MEDS ORDERED: EPINEPHrine/Lidocaine/Tetracai 3 ML ML TOP PRN (12:55)
[2018-09-24] MEDS: HYDROmorphone 1 MG/ML Syringe IVPUSH PRN (12:57)
[2018-09-24] MEDS: Acetaminophen 325 MG Tab PO PRN (13:38)
[2018-09-24] MEDS: Sodium Chloride 0.9% 1,000 ML IV SCH (20:57)
[2018-09-25] MEDS: Acetaminophen/HYDROcodone 325-5 MG Tab PO PRN ×4 (02:12→17:34)
[2018-09-25] MEDS: Piperacillin/Tazobactam 4.5 GM in Sodium Chloride 0.9% 100 ML IV SCH ×3 (02:14→17:35)
[2018-09-25] MEDS: Sodium Chloride 0.9% 1,000 ML IV SCH ×3 (04:48→20:57)
[2018-09-25] MEDS: Saccharomyces Boulardii (Probiotic) 250 MG Cap PO SCH ×2 (10:35→20:56)
[2018-09-25] MEDS: Famotidine 20 MG Tab PO SCH ×2 (10:35→20:56)
[2018-09-25] MEDS: Enoxaparin 40 MG/0.4 ML Syringe SUBCUT SCH (10:35)
[2018-09-25] MEDS: Potassium Chloride 20 MEQ Tab.ER PO SCH ×2 (10:36→20:55)
[2018-09-25] MEDS: Nicotine 21 MG/24 Hr Patch TRDERM SCH (12:38)
[2018-09-25] MEDS: HYDROmorphone 1 MG/ML Syringe IVPUSH PRN ×2 (14:28→20:31)
--- NOTE | 2018-09-25 16:21 | PCM.PN ---
- General Info Date of Service: 09/25/18 Functional Status: Reports: Pain Controlled, Tolerating Diet, Ambulating, Urinating - Review of Systems General: Reports: Weakness HEENT: Reports: No Symptoms Pulmonary: Reports: No Symptoms Cardiovascular: Reports: No Symptoms Gastrointestinal: Reports: No Symptoms Genitourinary: Reports: No Symptoms Musculoskeletal: Reports: No Symptoms Skin: Reports: No Symptoms Neurological: Reports: No Symptoms Psychiatric: Reports: No Symptoms - Patient Data Vitals - Most Recent: Last Vital Signs Temp 36.1 C 09/25/18 11:18 Pulse 51 L 09/25/18 11:18 Resp 15 09/25/18 11:18 BP 120/93 H 09/25/18 11:18 Pulse Ox 99 09/25/18 11:18 Weight - Most Recent: 78.471 kg I&O - Last 24 Hours: Intake & Output 09/25/18 09/25/18 09/25/18 06:59 14:59 22:59 Intake Total 192 120 Balance 192 120 Lab Results Last 24 Hours: Laboratory Results - last 24 hr 09/18/18 09/20/18 09/25/18 Range/Units 16:03 05:45 06:07 WBC 13.59 H (3.98-10.04) K/mm3 RBC 3.54 L (3.98-5.22) M/mm3 Hgb 10.9 L (11.2-15.7) gm/L Hct 33.2 L (34.1-44.9) % MCV 93.8 (79.4-94.8) fl MCH 30.8 (25.6-32.2) pg MCHC 32.8 (32.2-35.5) g/dl RDW Std Deviation 39.9 (36.4-46.3) fL Plt Count 227 (182-369) K/mm3 MPV 10.8 (9.4-12.3) fl Neut % (Auto) 72.3 H (34.0-71.1) % Lymph % (Auto) 16.5 L (19.3-51.7) % [place] % (Auto) 5.6 (4.7-12.5) % Eos % (Auto) 3.0 (0.7-5.8) Baso % (Auto) 0.4 (0.1-1.2) % Neut # (Auto) 9.83 H (1.56-6.13) K/mm3 Lymph # (Auto) 2.24 (1.18-3.74) K/mm3 [place] # (Auto) 0.76 H (0.24-0.36) K/mm3 Eos # (Auto) 0.41 H (0.04-0.36) K/mm3 Baso # (Auto) 0.05 (0.01-0.08) K/mm3 Manual Slide Review Abnormal smear Sodium (136-145) mEq/L Potassium (3.5-5.1) mEq/L Chloride (98-107) mEq/L Carbon Dioxide (21-32) mEq/L Anion Gap (5-15) BUN (7-18) mg/dL Creatinine (0.55-1.02) mg/dL Est Cr Clr Drug Dosing mL/min Estimated GFR (MDRD) (>60) mL/min BUN/Creatinine Ratio (14-18) Glucose (74-106) mg/dL Calcium (8.5-10.1) mg/dL Magnesium (1.8-2.4) mg/dl C-Reactive Protein (<1.0) mg/dL Alpha-Tocopherol Vit E 6.1 (5.9-19.4) mg/L Gamma-Tocopherol Vit E 1.1 (0.7-4.9) mg/L U Amphetam Cnfrm GC/MS 4504 H (NOTDET) ng/mL U Amphetamine/Methamph 46234 H (NOTDET) ng/mL Urine MDEA Not detected (NOTDET) ng/mL Urine MDA Not detected (NOTDET) ng/mL Urine MDMA Screen Not detected (NOTDET) ng/mL 09/25/18 Range/Units 06:07 WBC (3.98-10.04) K/mm3 RBC (3.98-5.22) M/mm3 Hgb (11.2-15.7) gm/L Hct (34.1-44.9) % MCV (79.4-94.8) fl MCH (25.6-32.2) pg MCHC (32.2-35.5) g/dl RDW Std Deviation (36.4-46.3) fL Plt Count (182-369) K/mm3 MPV (9.4-12.3) fl Neut % (Auto) (34.0-71.1) % Lymph % (Auto) (19.3-51.7) % [place] % (Auto) (4.7-12.5) % Eos % (Auto) (0.7-5.8) Baso % (Auto) (0.1-1.2) % Neut # (Auto) (1.56-6.13) K/mm3 Lymph # (Auto) (1.18-3.74) K/mm3 [place] # (Auto) (0.24-0.36) K/mm3 Eos # (Auto) (0.04-0.36) K/mm3 Baso # (Auto) (0.01-0.08) K/mm3 Manual Slide Review Sodium 141 (136-145) mEq/L Potassium 3.5 (3.5-5.1) mEq/L Chloride 106 (98-107) mEq/L Carbon Dioxide 26 (21-32) mEq/L Anion Gap 12.5 (5-15) BUN 8 (7-18) mg/dL Creatinine 1.5 H (0.55-1.02) mg/dL Est Cr Clr Drug Dosing 47.43 mL/min Estimated GFR (MDRD) 42 (>60) mL/min BUN/Creatinine Ratio 5.3 L (14-18) Glucose 95 (74-106) mg/dL Calcium 8.6 (8.5-10.1) mg/dL Magnesium 2.1 (1.8-2.4) mg/dl C-Reactive Protein 10.8 H* (<1.0) mg/dL Alpha-Tocopherol Vit E (5.9-19.4) mg/L Gamma-Tocopherol Vit E (0.7-4.9) mg/L U Amphetam Cnfrm GC/MS (NOTDET) ng/mL U Amphetamine/Methamph (NOTDET) ng/mL Urine MDEA (NOTDET) ng/mL Urine MDA (NOTDET) ng/mL Urine MDMA Screen (NOTDET) ng/mL Franco Results Last 24 Hours: Microbiology 09/21/18 11:15 Gram Stain - Final Ankle, Left Anaerobic Culture - Preliminary 09/17/18 23:00 Aerobic Blood Culture - Final Blood - Venous NO GROWTH AFTER 7 DAYS Anaerobic Blood Culture - Final NO GROWTH AFTER 7 DAYS 09/17/18 23:05 Aerobic Blood Culture - Final Blood - Venous - Lab Draw NO GROWTH AFTER 7 DAYS Anaerobic Blood Culture - Final Med Orders - Current: Current Medications Acetaminophen (Tylenol) 650 mg PO Q4H PRN PRN Reason: Pain (Mild 1-3)/fever Last Admin: 09/24/18 13:38 Dose: 650 mg Hydrocodone Bitart/Acetaminophen (Emerson 325-5 Mg) 1 tab PO Q4H PRN PRN Reason: Pain Last Admin: 09/25/18 10:48 Dose: 1 tab Albuterol/Ipratropium (Duoneb 3.0-0.5 Mg/3 Ml) 3 ml NEB Q4H PRN PRN Reason: Shortness Of Breath/wheezing Bisacodyl (Dulcolax) 5 mg PO DAILY PRN PRN Reason: Constipation Docusate Sodium (Colace) 100 mg PO BID PRN PRN Reason: Constipation Enoxaparin Sodium (Lovenox) 40 mg SUBCUT DAILY [facility] Last Admin: 09/25/18 10:35 Dose: 40 mg Famotidine (Pepcid) 20 mg PO BID [facility] Last Admin: 09/25/18 10:35 Dose: 20 mg Hydralazine HCl (Apresoline) 20 mg IVPUSH Q4H PRN PRN Reason: Hypertension Hydrocortisone (Hydrocortisone 1% Crm) 0 gm TOP QID PRN PRN Reason: Rash/Itching Last Admin: 09/19/18 12:44 Dose: 1 applic Hydromorphone HCl (Dilaudid) 0.5 mg IVPUSH Q6H PRN PRN Reason: Pain (severe 7-10) Last Admin: 09/25/18 14:28 Dose: 0.5 mg Sodium Chloride (Normal Saline) 1,000 mls @ 125 mls/hr IV ASDIRECTED [facility] Last Admin: 09/25/18 13:02 Dose: 125 mls/hr Piperacillin Sod/Tazobactam (Sod 4.5 gm/ Sodium Chloride) 100 mls @ 25 mls/hr IV Q8H [facility] Last Admin: 09/25/18 10:35 Dose: 25 mls/hr Lidocaine/Tetracaine (Let Soln) 3 ml TOP ONETIME PRN PRN Reason: Use for foot wound debridement Lorazepam (Ativan) 0.5 mg IVPUSH Q4H PRN PRN Reason: Withdrawal Symptoms Lorazepam (Ativan) 2 mg IVPUSH Q4H PRN PRN Reason: Seizures Lorazepam (Ativan) 1 mg IV Q6H PRN PRN Reason: Anxiety Last Admin: 09/20/18 00:34 Dose: 1 mg Metoprolol Tartrate (Lopressor) 5 mg IVPUSH Q4H PRN PRN Reason: Tachycardia Miscellaneous Information (Remove Patch) 1 ea TRDERM DAILY [facility] Last Admin: 09/25/18 12:38 Dose: Not Given Nicotine (Habitrol) 21 mg TRDERM DAILY [facility] Last Admin: 09/25/18 12:38 Dose: Not Given Ondansetron HCl (Zofran) 4 mg IV Q6H PRN PRN Reason: Nausea/Vomiting Last Admin: 09/19/18 09:52 Dose: 4 mg Polyethylene Glycol (Miralax) 17 gm PO DAILY PRN PRN Reason: Constipation Potassium Chloride (Klor-Con M20) 40 meq PO BID [facility] Stop: 09/26/18 09:01 Last Admin: 09/25/18 10:36 Dose: 40 meq Saccharomyces Boulardii (Florastor) 250 mg PO BID [facility] Last Admin: 09/25/18 10:35 Dose: 250 mg Senna/Docusate Sodium (Senna Plus) 1 tab PO BID PRN PRN Reason: Constipation Temazepam (Restoril) 15 mg PO BEDTIME PRN PRN Reason: Sleep Last Admin: 09/24/18 01:08 Dose: 15 mg Discontinued Medications Famotidine (Pepcid) 20 mg IVPUSH ONETIME ONE Stop: 09/18/18 09:01 Last Admin: 09/18/18 09:20 Dose: 20 mg Fentanyl (Sublimaze) 100 mcg IVPUSH ONETIME ONE Stop: 09/19/18 20:27 Last Admin: 09/20/18 01:07 Dose: Not Given Fentanyl (Sublimaze) 100 mcg IM STAT ONE Stop: 09/19/18 21:27 Last Admin: 09/19/18 21:38 Dose: 100 mcg Fentanyl (Sublimaze) 100 mcg IM ONETIME ONE Stop: 09/19/18 22:51 Last Admin: 09/19/18 22:59 Dose: 100 mcg Hydromorphone HCl (Dilaudid) 0.5 mg IVPUSH ONETIME ONE Stop: 09/18/18 07:14 Last Admin: 09/18/18 07:27 Dose: 0.5 mg Hydromorphone HCl (Dilaudid) 0.5 mg IVPUSH ONETIME ONE Stop: 09/23/18 13:11 Last Admin: 09/23/18 13:38 Dose: 0.5 mg Ceftriaxone Sodium 2 gm/ (Sodium Chloride) 100 mls @ 200 mls/hr IV Q24H [facility] Last Admin: 09/17/18 23:53 Dose: 200 mls/hr Sodium Chloride (Normal Saline) Confirm Administered Dose 1,000 mls @ as directed .ROUTE .STK-MED ONE Stop: 09/18/18 01:15 Last Admin: 09/18/18 02:35 Dose: Not Given Sodium Chloride (Normal Saline) 1,000 mls @ 125 mls/hr IV ASDIRECTED [facility] Last Admin: 09/19/18 02:23 Dose: 125 mls/hr Ceftriaxone Sodium 2 gm/ (Sodium Chloride) 100 mls @ 200 mls/hr IV Q24H [facility] Last Admin: 09/18/18 11:47 Dose: 200 mls/hr Piperacillin Sod/Tazobactam (Sod 4.5 gm/ Sodium Chloride) 100 mls @ 25 mls/hr IV Q8H [facility] Last Admin: 09/19/18 21:27 Dose: Not Given Piperacillin Sod/Tazobactam (Sod 4.5 gm/ Sodium Chloride) 100 mls @ 200 mls/hr IV ONETIME ONE Stop: 09/18/18 19:44 Last Admin: 09/18/18 20:52 Dose: 200 mls/hr Vancomycin HCl 1 gm/ Sodium (Chloride) 250 mls @ 250 mls/hr IV Q8H [facility] Last Admin: 09/19/18 21:28 Dose: Not Given Sodium Chloride (Normal Saline) 1,000 mls @ 50 mls/hr IV ASDIRECTED [facility] Last Admin: 09/22/18 08:04 Dose: 50 mls/hr Magnesium Sulfate 2 gm/ Premix 50 mls @ 25 mls/hr IV ONETIME ONE Stop: 09/19/18 12:44 Last Admin: 09/19/18 12:08 Dose: 25 mls/hr Vancomycin HCl 1 gm/ Sodium (Chloride) 250 mls @ 250 mls/hr IV Q8H [facility] Last Admin: 09/20/18 01:38 Dose: Not Given Piperacillin Sod/Tazobactam (Sod 4.5 gm/ Sodium Chloride) 100 mls @ 25 mls/hr IV Q8H [facility] Last Admin: 09/24/18 09:31 Dose: 25 mls/hr Vancomycin HCl 1 gm/ Sodium (Chloride) 250 mls @ 250 mls/hr IV Q8H [facility] Last Admin: 09/21/18 02:49 Dose: Not Given Vancomycin HCl 1 gm/Vancomycin HCl 250 mg/ Sodium Chloride 500 mls @ 333.333 mls/hr IV Q8H [facility] Last Admin: 09/21/18 03:09 Dose: 250 mls/hr Vancomycin HCl 1 gm/Vancomycin HCl 250 mg/ Sodium Chloride 250 mls @ 166.667 mls/hr IV Q8H [facility] Last Admin: 09/22/18 11:30 Dose: Not Given Magnesium Sulfate 2 gm/ Premix 50 mls @ 25 mls/hr IV ONETIME ONE Stop: 09/21/18 15:16 Last Admin: 09/21/18 15:32 Dose: 25 mls/hr Sodium Chloride (Normal Saline) 1,000 mls @ 125 mls/hr IV ASDIRECTED [facility] Stop: 09/22/18 20:00 Last Admin: 09/22/18 11:31 Dose: 125 mls/hr Sodium Chloride (Normal Saline) 1,000 mls @ 50 mls/hr IV ASDIRECTED [facility] Last Admin: 09/22/18 19:13 Dose: 50 mls/hr Vancomycin HCl 1 gm/ Sodium (Chloride) 250 mls @ 250 mls/hr IV Q12H [facility] Last Admin: 09/24/18 08:23 Dose: 250 mls/hr Sodium Chloride (Normal Saline) 1,000 mls @ 999 mls/hr IV ASDIRECTED ONE Stop: 09/23/18 14:00 Last Admin: 09/23/18 13:37 Dose: 999 mls/hr Sodium Chloride (Normal Saline) 1,000 mls @ 999 mls/hr IV ONETIME ONE Stop: 09/23/18 15:25 Last Admin: 09/23/18 14:47 Dose: 999 mls/hr Sodium Chloride (Normal Saline) 1,000 mls @ 75 mls/hr IV ASDIRECTED [facility] Last Admin: 09/23/18 15:52 Dose: 75 mls/hr Ampicillin Sodium/Sulbactam (Sodium 3 gm/ Sodium Chloride) 100 mls @ 200 mls/ hr IV Q8H [facility] Last Admin: 09/24/18 11:39 Dose: Not Given Iopamidol (Isovue-370 (76%)) 100 ml IV ONETIME ONE Stop: 09/17/18 22:27 Last Admin: 09/18/18 02:33 Dose: Not Given Ketorolac Tromethamine (Toradol) 60 mg IM ONETIME ONE Stop: 09/17/18 21:43 Last Admin: 09/17/18 21:47 Dose: 60 mg Ketorolac Tromethamine (Toradol) 60 mg IM ONETIME ONE Stop: 09/17/18 21:44 Last Admin: 09/17/18 21:49 Dose: Not Given Ketorolac Tromethamine (Toradol) 30 mg IM Q6H PRN PRN Reason: Pain (moderate 4-6) Last Admin: 09/20/18 08:40 Dose: 30 mg Ketorolac Tromethamine (Toradol) 30 mg IVPUSH Q6H PRN PRN Reason: Pain (moderate 4-6) Last Admin: 09/21/18 21:33 Dose: 30 mg Lidocaine HCl (Xylocaine 1%) 10 ml INJECT ONETIME ONE Stop: 09/19/18 20:27 Last Admin: 09/19/18 23:02 Dose: 10 ml Lidocaine/Tetracaine (Let Soln) 3 ml TOP ONETIME ONE Stop: 09/23/18 13:12 Last Admin: 09/23/18 13:37 Dose: 3 ml Magnesium Sulfate (Pharmacy To Dose - Magnesium Replacement) 0 dose .XX ASDIRECTED PRN PRN Reason: RX TO WATCH MAG Midazolam HCl (Versed 1 Mg/Ml) 5 mg IVPUSH ONETIME ONE Stop: 09/19/18 20:26 Last Admin: 09/20/18 01:06 Dose: Not Given Midazolam HCl (Versed 1 Mg/Ml) 4 mg IM STAT ONE Stop: 09/19/18 21:27 Last Admin: 09/19/18 21:36 Dose: 4 mg Potassium Chloride (Pharmacy To Dose - Potassium Replacement) 0 dose .XX ASDIRECTED PRN PRN Reason: RX TO WATCH K Potassium Chloride (Klor-Con M20) 40 meq PO ONETIME ONE Stop: 09/18/18 09:16 Last Admin: 09/18/18 09:20 Dose: 40 meq Potassium Chloride (Klor-Con M20) 40 meq PO Q4H [facility] Stop: 09/19/18 14:46 Last Admin: 09/19/18 15:30 Dose: 40 meq Scopolamine (Transderm-Scop) 1.5 mg TRDERM Q72H ONE Stop: 09/19/18 09:49 Last Admin: 09/19/18 10:16 Dose: 1.5 mg Tramadol HCl (Ultram) 50 mg PO ONETIME ONE Stop: 09/17/18 21:44 Last Admin: 09/17/18 21:48 Dose: 50 mg Tramadol HCl (Ultram) 100 mg PO ONETIME ONE Stop: 09/17/18 21:44 Last Admin: 09/17/18 21:49 Dose: Not Given Vancomycin HCl (Pharmacy To Dose - Vancomycin) 0 dose .XX ASDIRECTED PRN PRN Reason: RX TO DOSE VANCO Vancomycin HCl (Vancomycin) Confirm Administered Dose 1 gm .ROUTE .STK-MED ONE Stop: 09/23/18 20:24 Last Admin: 09/23/18 22:59 Dose: Not Given Vitamin E (Vitamin E) 400 units PO DAILY [facility] Stop: 09/22/18 09:01 Last Admin: 09/22/18 08:00 Dose: 400 units - Exam Quality Assessment: DVT Prophylaxis General: Alert, Oriented, Cooperative, No Acute Distress HEENT: Pupils Equal, Pupils Reactive, EOMI Neck: Trachea Midline, No JVD Lungs: Normal Respiratory Effort Cardiovascular: Regular Rate, Regular Rhythm GI/Abdominal Exam: Normal Bowel Sounds, Soft, Non-Tender, No Organomegaly, No Distention (Female) Exam: Deferred Back Exam: Normal Inspection Extremities: Normal Inspection, Normal Capillary Refill, Pedal Edema (decreased) , Redness (decreased) Skin: Warm, Other (lateral malleolus purulent drainage) Wound/Incisions: Drainage, Erythema Improving Neurological: No New Focal Deficit, Normal Speech Psy/Mental Status: Alert, Anxious - Problem List Review Problem List Initiated/Reviewed/Updated: Yes - My Orders Last 24 Hours: My Active Orders 09/25/18 10:15 Potassium Chloride [Klor-Con M20] 40 meq PO BID 09/25/18 15:39 Consult to Physician [CONS] Routine 09/25/18 15:40 Notify Provider Consults [RC] ASDIRECTED - Plan Plan:: Assessment/Plan: Acute: Severe Left Foot Cellulitis With Significant Edema; abscess assessment, gen surg consult for I/D. - 2/2 IV Drug Use with Meth - She is a known Meth user; last use was day before admission - She injects with re-used needle on her ankle - U/S shows report diffuse subcutaneous edema - CT scan report reads diffuse subcutaneous edema. No bony erosion to indicate osteomyelitis. No focal fluid collections of abscess are seen. - Foot X-ray on 09/21/18: Soft tissue swelling; Incidental calcaneal spur; No acute bony abnormality or erosion seen - WBC 32.52--> 27.85-->20.21-->16.57-->15.15-->15.25-->14.49-->14.19 - CRP 37.3-->34.6-->25.4-->24.1-->17.0-->13.2-->9.2 - Pain management plus NSAIDs - IV vancomycin and zosyn -> discontinue vancomycin based on worsening renal function - PT/OT consult - PT wound care - nursing to take over but PT will monitor need for debridement - Monitor for worsening of foot infection - Wound culture ordered after blisters opened - negative so far; had already started antibiotics Poly-Substance Abuse - Ampheth/Meth, Benzos and THC positive - [facility] consult, Mike consult, [facility] consult; patient refused all - Counseled on substance abuse - Per patient she was clean for 3 years after treatment and then relapsed - Multiple injection locations on extremities - consult - Essentially refusing all services - have offered multiple times - Reports she will stop on her own and does not need help DEVORA - Baseline eGFR and creatinine appear to be WNL - BUN 6-->6-->7-->4.0 - Creatinine 0.8-->1.3-->1.4-->1.5 - eGFR >60 --> 50-->46-->42 - Has been receiving IV fluids -> Increase as ordered - 2L IV fluid bolus given yesterday - Likely 2/2 poor intake and medications Resolved: E-lytes Abnormality - Hypokalemia and Hypomagnesemia - K 3.4 and Mg 1.6 - 2/2 inadequate intake; she has been sick lately - Replete and monitor Sepsis - 2/2 Severe Left Foot Infection - Tachycardia and WBC 33K plus Infection - Received IV 2 Grams of IV Rocephin x1 in ED - So far blood culture for 4 day is negative - Change antibiotic regimen to IV Vancomycin and Zosyn for pharmacy to dose Chronic: Substance Abuse: Meth and Marijuana Nicotine Dependence, Counseled on Smoking Cessation Plan: She is clinically improving Routine AM Labs SAC consult for substance abuse; patient refused UA negative for UTI Nicotine Patch Daily - initially refusing but now accepting at times Topical Hydrocortisone cream for skin rash/itching PRN QID Vitamin E level and Vitamin E 400 mg po Daily x3 doses only for anti-oxidant and wound healing Add Opioids for pain control; patient is a meth addict cannot expect to just control her pain with NSAIDs Ketorolac for anti-inflammatory agent GI/DVT PPx: H2B/Lovenox SubQ Daily PT/OT for assessment and evaluation SW/CM for d/c planning Code status: Full code; PCP: None - needs to establish LOS >96HR due to need for continued IV antibiotics, worsening renal function.
[2018-09-26] MEDS: Acetaminophen/HYDROcodone 325-5 MG Tab PO PRN (00:11)
[2018-09-26] MEDS: Piperacillin/Tazobactam 4.5 GM in Sodium Chloride 0.9% 100 ML IV SCH ×2 (01:01→10:26)
[2018-09-26] MEDS: Sodium Chloride 0.9% 1,000 ML IV SCH ×3 (04:39→21:49)
[2018-09-26] MEDS ORDERED: Propofol 200 MG/20 ML SDV ONE (08:01)
[2018-09-26] MEDS ORDERED: Midazolam 1 MG/ML 2 ML SDV ONE (08:01)
[2018-09-26] MEDS ORDERED: Ketamine 500 mg/10 ML MDV ONE ×2 (08:01→08:05)
[2018-09-26] MEDS ORDERED: fentaNYL 100 MCG/2 ML SDV ONE (08:01)
[2018-09-26] MEDS ORDERED: Lidocaine 1% 4 ML ONE (08:02)
[2018-09-26] MEDS ORDERED: HYDROmorphone 0.5 MG/0.5 ML Syringe ONE ×2 (08:51→09:02)
--- NOTE | 2018-09-26 09:24 | PCM48HPAN ---
Post Anesthesia Note - EVALUATION WITHIN 48HRS OF ANESTHETIC Vital Signs in Normal Range: Yes Patient Participated in Evaluation: Yes Respiratory Function Stable: Yes Airway Patent: Yes Cardiovascular Function Stable: Yes Hydration Status Stable: Yes Pain Control Satisfactory: Yes Nausea and Vomiting Control Satisfactory: Yes Pulse Rate: 53 SaO2: 95 Resp Rate: 18 Temperature: 36.6 C Blood Pressure: 123/73
[2018-09-26] MEDS ORDERED: HYDROmorphone 1 MG/ML Syringe IVPUSH PRN (09:51)
[2018-09-26] MEDS: Acetaminophen/HYDROcodone 325-10 MG Tab PO PRN ×3 (10:10→22:12)
[2018-09-26] MEDS: Enoxaparin 40 MG/0.4 ML Syringe SUBCUT SCH (10:23)
[2018-09-26] MEDS: Saccharomyces Boulardii (Probiotic) 250 MG Cap PO SCH ×3 (10:23→22:29)
[2018-09-26] MEDS: Famotidine 20 MG Tab PO SCH ×3 (10:23→22:29)
[2018-09-26] MEDS: Potassium Chloride 20 MEQ Tab.ER PO SCH (10:23)
[2018-09-26] MEDS: Nicotine 21 MG/24 Hr Patch TRDERM SCH (10:24)
[2018-09-26] MEDS ORDERED: Magnesium Sulfate/Water 2 GM in Premix Bag 1 BAG IV ONE (15:43)
--- NOTE | 2018-09-26 15:52 | PCM.PN ---
- General Info Date of Service: 09/26/18 Subjective Update: Post op after I/D of left foot abcess, will require removal of packing to be performed in the OR on Thursday. DC tentatively on 09/29/18. Functional Status: Reports: Pain Controlled, Tolerating Diet, Urinating - Review of Systems General: Reports: No Symptoms HEENT: Reports: No Symptoms Pulmonary: Reports: No Symptoms Cardiovascular: Reports: No Symptoms Gastrointestinal: Reports: No Symptoms Genitourinary: Reports: No Symptoms Musculoskeletal: Reports: No Symptoms Skin: Reports: No Symptoms Neurological: Reports: No Symptoms Psychiatric: Reports: No Symptoms - Patient Data Vitals - Most Recent: Last Vital Signs Temp 36.6 C 09/26/18 09:24 Pulse 53 L 09/26/18 09:24 Resp 18 09/26/18 09:24 BP 123/73 09/26/18 09:24 Pulse Ox 95 09/26/18 09:24 Weight - Most Recent: 78.834 kg I&O - Last 24 Hours: Intake & Output 09/26/18 09/26/18 09/26/18 06:59 14:59 22:59 Intake Total 2490 180 Balance 2490 180 Lab Results Last 24 Hours: Laboratory Results - last 24 hr 09/26/18 09/26/18 Range/Units 05:45 05:45 WBC 13.51 H (3.98-10.04) K/mm3 RBC 3.50 L (3.98-5.22) M/mm3 Hgb 10.8 L (11.2-15.7) gm/L Hct 32.9 L (34.1-44.9) % MCV 94.0 (79.4-94.8) fl MCH 30.9 (25.6-32.2) pg MCHC 32.8 (32.2-35.5) g/dl RDW Std Deviation 40.4 (36.4-46.3) fL Plt Count 211 (182-369) K/mm3 MPV 11.0 (9.4-12.3) fl Neut % (Auto) 73.4 H (34.0-71.1) % Lymph % (Auto) 15.8 L (19.3-51.7) % Turner % (Auto) 5.6 (4.7-12.5) % Eos % (Auto) 3.4 (0.7-5.8) Baso % (Auto) 0.2 (0.1-1.2) % Neut # (Auto) 9.92 H (1.56-6.13) K/mm3 Lymph # (Auto) 2.14 (1.18-3.74) K/mm3 Turner # (Auto) 0.75 H (0.24-0.36) K/mm3 Eos # (Auto) 0.46 H (0.04-0.36) K/mm3 Baso # (Auto) 0.03 (0.01-0.08) K/mm3 Manual Slide Review Abnormal smear Sodium 141 (136-145) mEq/L Potassium 3.9 (3.5-5.1) mEq/L Chloride 106 (98-107) mEq/L Carbon Dioxide 24 (21-32) mEq/L Anion Gap 14.9 (5-15) BUN 7 (7-18) mg/dL Creatinine 1.3 H (0.55-1.02) mg/dL Est Cr Clr Drug Dosing 54.72 mL/min Estimated GFR (MDRD) 50 (>60) mL/min BUN/Creatinine Ratio 5.4 L (14-18) Glucose 89 (74-106) mg/dL Calcium 8.9 (8.5-10.1) mg/dL Magnesium 1.8 (1.8-2.4) mg/dl C-Reactive Protein 8.6 H* (<1.0) mg/dL Franco Results Last 24 Hours: Microbiology 09/21/18 11:15 Gram Stain - Final Ankle, Left Anaerobic Culture - Preliminary 09/26/18 08:48 Gram Stain - Final Leg, Left Med Orders - Current: Current Medications Acetaminophen (Tylenol) 650 mg PO Q4H PRN PRN Reason: Pain (Mild 1-3)/fever Last Admin: 09/24/18 13:38 Dose: 650 mg Hydrocodone Bitart/Acetaminophen (Starkweather 325-10 Mg) 1 tab PO Q6H PRN PRN Reason: Pain Albuterol/Ipratropium (Duoneb 3.0-0.5 Mg/3 Ml) 3 ml NEB Q4H PRN PRN Reason: Shortness Of Breath/wheezing Bisacodyl (Dulcolax) 5 mg PO DAILY PRN PRN Reason: Constipation Docusate Sodium (Colace) 100 mg PO BID PRN PRN Reason: Constipation Enoxaparin Sodium (Lovenox) 40 mg SUBCUT DAILY [facility] Last Admin: 09/26/18 10:23 Dose: 40 mg Famotidine (Pepcid) 20 mg PO BID [facility] Last Admin: 09/26/18 10:23 Dose: 20 mg Hydralazine HCl (Apresoline) 20 mg IVPUSH Q4H PRN PRN Reason: Hypertension Hydrocortisone (Hydrocortisone 1% Crm) 0 gm TOP QID PRN PRN Reason: Rash/Itching Last Admin: 09/19/18 12:44 Dose: 1 applic Hydromorphone HCl (Dilaudid) 1 mg IVPUSH Q8H PRN PRN Reason: Pain Sodium Chloride (Normal Saline) 1,000 mls @ 125 mls/hr IV ASDIRECTED [facility] Last Admin: 09/26/18 13:56 Dose: 125 mls/hr Magnesium Sulfate 2 gm/ Premix 50 mls @ 25 mls/hr IV ONETIME ONE Stop: 09/26/18 17:42 Lidocaine/Tetracaine (Let Soln) 3 ml TOP ONETIME PRN PRN Reason: Use for foot wound debridement Lorazepam (Ativan) 0.5 mg IVPUSH Q4H PRN PRN Reason: Withdrawal Symptoms Lorazepam (Ativan) 2 mg IVPUSH Q4H PRN PRN Reason: Seizures Lorazepam (Ativan) 1 mg IV Q6H PRN PRN Reason: Anxiety Last Admin: 09/20/18 00:34 Dose: 1 mg Metoprolol Tartrate (Lopressor) 5 mg IVPUSH Q4H PRN PRN Reason: Tachycardia Miscellaneous Information (Remove Patch) 1 ea TRDERM DAILY [facility] Last Admin: 09/26/18 10:24 Dose: Not Given Nicotine (Habitrol) 21 mg TRDERM DAILY [facility] Last Admin: 09/26/18 10:24 Dose: Not Given Ondansetron HCl (Zofran) 4 mg IV Q6H PRN PRN Reason: Nausea/Vomiting Last Admin: 09/19/18 09:52 Dose: 4 mg Polyethylene Glycol (Miralax) 17 gm PO DAILY PRN PRN Reason: Constipation Saccharomyces Boulardii (Florastor) 250 mg PO BID [facility] Last Admin: 09/26/18 10:23 Dose: 250 mg Senna/Docusate Sodium (Senna Plus) 1 tab PO BID PRN PRN Reason: Constipation Temazepam (Restoril) 15 mg PO BEDTIME PRN PRN Reason: Sleep Last Admin: 09/24/18 01:08 Dose: 15 mg Discontinued Medications Hydrocodone Bitart/Acetaminophen (Starkweather 325-5 Mg) 1 tab PO Q4H PRN PRN Reason: Pain Last Admin: 09/26/18 00:11 Dose: 1 tab Famotidine (Pepcid) 20 mg IVPUSH ONETIME ONE Stop: 09/18/18 09:01 Last Admin: 09/18/18 09:20 Dose: 20 mg Fentanyl (Sublimaze) 100 mcg IVPUSH ONETIME ONE Stop: 09/19/18 20:27 Last Admin: 09/20/18 01:07 Dose: Not Given Fentanyl (Sublimaze) 100 mcg IM STAT ONE Stop: 09/19/18 21:27 Last Admin: 09/19/18 21:38 Dose: 100 mcg Fentanyl (Sublimaze) 100 mcg IM ONETIME ONE Stop: 09/19/18 22:51 Last Admin: 09/19/18 22:59 Dose: 100 mcg Fentanyl (Sublimaze) Confirm Administered Dose 100 mcg .ROUTE .STK-MED ONE Stop: 09/26/18 08:02 Hydromorphone HCl (Dilaudid) 0.5 mg IVPUSH ONETIME ONE Stop: 09/18/18 07:14 Last Admin: 09/18/18 07:27 Dose: 0.5 mg Hydromorphone HCl (Dilaudid) 0.5 mg IVPUSH Q6H PRN PRN Reason: Pain (severe 7-10) Last Admin: 09/25/18 20:31 Dose: 0.5 mg Hydromorphone HCl (Dilaudid) 0.5 mg IVPUSH ONETIME ONE Stop: 09/23/18 13:11 Last Admin: 09/23/18 13:38 Dose: 0.5 mg Hydromorphone HCl (Dilaudid) Confirm Administered Dose 0.5 mg .ROUTE .STK-MED ONE Stop: 09/26/18 08:52 Hydromorphone HCl (Dilaudid) Confirm Administered Dose 0.5 mg .ROUTE .STK-MED ONE Stop: 09/26/18 09:03 Ceftriaxone Sodium 2 gm/ (Sodium Chloride) 100 mls @ 200 mls/hr IV Q24H [facility] Last Admin: 09/17/18 23:53 Dose: 200 mls/hr Sodium Chloride (Normal Saline) Confirm Administered Dose 1,000 mls @ as directed .ROUTE .K-MED ONE Stop: 09/18/18 01:15 Last Admin: 09/18/18 02:35 Dose: Not Given Sodium Chloride (Normal Saline) 1,000 mls @ 125 mls/hr IV ASDIRECTED [facility] Last Admin: 09/19/18 02:23 Dose: 125 mls/hr Ceftriaxone Sodium 2 gm/ (Sodium Chloride) 100 mls @ 200 mls/hr IV Q24H [facility] Last Admin: 09/18/18 11:47 Dose: 200 mls/hr Piperacillin Sod/Tazobactam (Sod 4.5 gm/ Sodium Chloride) 100 mls @ 25 mls/hr IV Q8H [facility] Last Admin: 09/19/18 21:27 Dose: Not Given Piperacillin Sod/Tazobactam (Sod 4.5 gm/ Sodium Chloride) 100 mls @ 200 mls/hr IV ONETIME ONE Stop: 09/18/18 19:44 Last Admin: 09/18/18 20:52 Dose: 200 mls/hr Vancomycin HCl 1 gm/ Sodium (Chloride) 250 mls @ 250 mls/hr IV Q8H [facility] Last Admin: 09/19/18 21:28 Dose: Not Given Sodium Chloride (Normal Saline) 1,000 mls @ 50 mls/hr IV ASDIRECTED [facility] Last Admin: 09/22/18 08:04 Dose: 50 mls/hr Magnesium Sulfate 2 gm/ Premix 50 mls @ 25 mls/hr IV ONETIME ONE Stop: 09/19/18 12:44 Last Admin: 09/19/18 12:08 Dose: 25 mls/hr Vancomycin HCl 1 gm/ Sodium (Chloride) 250 mls @ 250 mls/hr IV Q8H [facility] Last Admin: 09/20/18 01:38 Dose: Not Given Piperacillin Sod/Tazobactam (Sod 4.5 gm/ Sodium Chloride) 100 mls @ 25 mls/hr IV Q8H [facility] Last Admin: 09/24/18 09:31 Dose: 25 mls/hr Vancomycin HCl 1 gm/ Sodium (Chloride) 250 mls @ 250 mls/hr IV Q8H [facility] Last Admin: 09/21/18 02:49 Dose: Not Given Vancomycin HCl 1 gm/Vancomycin HCl 250 mg/ Sodium Chloride 500 mls @ 333.333 mls/hr IV Q8H [facility] Last Admin: 09/21/18 03:09 Dose: 250 mls/hr Vancomycin HCl 1 gm/Vancomycin HCl 250 mg/ Sodium Chloride 250 mls @ 166.667 mls/hr IV Q8H [facility] Last Admin: 09/22/18 11:30 Dose: Not Given Magnesium Sulfate 2 gm/ Premix 50 mls @ 25 mls/hr IV ONETIME ONE Stop: 09/21/18 15:16 Last Admin: 09/21/18 15:32 Dose: 25 mls/hr Sodium Chloride (Normal Saline) 1,000 mls @ 125 mls/hr IV ASDIRECTED [facility] Stop: 09/22/18 20:00 Last Admin: 09/22/18 11:31 Dose: 125 mls/hr Sodium Chloride (Normal Saline) 1,000 mls @ 50 mls/hr IV ASDIRECTED [facility] Last Admin: 09/22/18 19:13 Dose: 50 mls/hr Vancomycin HCl 1 gm/ Sodium (Chloride) 250 mls @ 250 mls/hr IV Q12H [facility] Last Admin: 09/24/18 08:23 Dose: 250 mls/hr Sodium Chloride (Normal Saline) 1,000 mls @ 999 mls/hr IV ASDIRECTED ONE Stop: 09/23/18 14:00 Last Admin: 09/23/18 13:37 Dose: 999 mls/hr Sodium Chloride (Normal Saline) 1,000 mls @ 999 mls/hr IV ONETIME ONE Stop: 09/23/18 15:25 Last Admin: 09/23/18 14:47 Dose: 999 mls/hr Sodium Chloride (Normal Saline) 1,000 mls @ 75 mls/hr IV ASDIRECTED [facility] Last Admin: 09/23/18 15:52 Dose: 75 mls/hr Ampicillin Sodium/Sulbactam (Sodium 3 gm/ Sodium Chloride) 100 mls @ 200 mls/ hr IV Q8H [facility] Last Admin: 09/24/18 11:39 Dose: Not Given Piperacillin Sod/Tazobactam (Sod 4.5 gm/ Sodium Chloride) 100 mls @ 25 mls/hr IV Q8H [facility] Last Admin: 09/26/18 10:26 Dose: 25 mls/hr Lidocaine HCl (Xylocaine-Mpf 1%) Confirm Administered Dose 4 mls @ as directed .ROUTE .STK-MED ONE Stop: 09/26/18 08:03 Iopamidol (Isovue-370 (76%)) 100 ml IV ONETIME ONE Stop: 09/17/18 22:27 Last Admin: 09/18/18 02:33 Dose: Not Given Ketamine HCl (Ketalar) Confirm Administered Dose 500 mg .ROUTE .STK-MED ONE Stop: 09/26/18 08:02 Ketamine HCl (Ketalar) Confirm Administered Dose 500 mg .ROUTE .STK-MED ONE Stop: 09/26/18 08:06 Ketorolac Tromethamine (Toradol) 60 mg IM ONETIME ONE Stop: 09/17/18 21:43 Last Admin: 09/17/18 21:47 Dose: 60 mg Ketorolac Tromethamine (Toradol) 60 mg IM ONETIME ONE Stop: 09/17/18 21:44 Last Admin: 09/17/18 21:49 Dose: Not Given Ketorolac Tromethamine (Toradol) 30 mg IM Q6H PRN PRN Reason: Pain (moderate 4-6) Last Admin: 09/20/18 08:40 Dose: 30 mg Ketorolac Tromethamine (Toradol) 30 mg IVPUSH Q6H PRN PRN Reason: Pain (moderate 4-6) Last Admin: 09/21/18 21:33 Dose: 30 mg Lidocaine HCl (Xylocaine 1%) 10 ml INJECT ONETIME ONE Stop: 09/19/18 20:27 Last Admin: 09/19/18 23:02 Dose: 10 ml Lidocaine/Tetracaine (Let Soln) 3 ml TOP ONETIME ONE Stop: 09/23/18 13:12 Last Admin: 09/23/18 13:37 Dose: 3 ml Magnesium Sulfate (Pharmacy To Dose - Magnesium Replacement) 0 dose .XX ASDIRECTED PRN PRN Reason: RX TO WATCH MAG Midazolam HCl (Versed 1 Mg/Ml) 5 mg IVPUSH ONETIME ONE Stop: 09/19/18 20:26 Last Admin: 09/20/18 01:06 Dose: Not Given Midazolam HCl (Versed 1 Mg/Ml) 4 mg IM STAT ONE Stop: 09/19/18 21:27 Last Admin: 09/19/18 21:36 Dose: 4 mg Midazolam HCl (Versed 1 Mg/Ml) Confirm Administered Dose 2 mg .ROUTE .STK-MED ONE Stop: 09/26/18 08:02 Potassium Chloride (Pharmacy To Dose - Potassium Replacement) 0 dose .XX ASDIRECTED PRN PRN Reason: RX TO WATCH K Potassium Chloride (Klor-Con M20) 40 meq PO ONETIME ONE Stop: 09/18/18 09:16 Last Admin: 09/18/18 09:20 Dose: 40 meq Potassium Chloride (Klor-Con M20) 40 meq PO Q4H [facility] Stop: 09/19/18 14:46 Last Admin: 09/19/18 15:30 Dose: 40 meq Potassium Chloride (Klor-Con M20) 40 meq PO BID [facility] Stop: 09/26/18 09:01 Last Admin: 09/26/18 10:23 Dose: 40 meq Propofol (Diprivan 20 Ml) Confirm Administered Dose 600 mg .ROUTE .STK-MED ONE Stop: 09/26/18 08:02 Scopolamine (Transderm-Scop) 1.5 mg TRDERM Q72H ONE Stop: 09/19/18 09:49 Last Admin: 09/19/18 10:16 Dose: 1.5 mg Tramadol HCl (Ultram) 50 mg PO ONETIME ONE Stop: 09/17/18 21:44 Last Admin: 09/17/18 21:48 Dose: 50 mg Tramadol HCl (Ultram) 100 mg PO ONETIME ONE Stop: 09/17/18 21:44 Last Admin: 09/17/18 21:49 Dose: Not Given Vancomycin HCl (Pharmacy To Dose - Vancomycin) 0 dose .XX ASDIRECTED PRN PRN Reason: RX TO DOSE VANCO Vancomycin HCl (Vancomycin) Confirm Administered Dose 1 gm .ROUTE .STK-MED ONE Stop: 09/23/18 20:24 Last Admin: 09/23/18 22:59 Dose: Not Given Vitamin E (Vitamin E) 400 units PO DAILY [facility] Stop: 09/22/18 09:01 Last Admin: 09/22/18 08:00 Dose: 400 units - Exam Quality Assessment: DVT Prophylaxis General: Alert, Oriented, Cooperative, Mild Distress HEENT: Pupils Equal, Pupils Reactive, EOMI Neck: Trachea Midline, No JVD Lungs: Normal Respiratory Effort Cardiovascular: Regular Rate, Regular Rhythm GI/Abdominal Exam: Normal Bowel Sounds, Soft, Non-Tender, No Organomegaly, No Distention (Female) Exam: Deferred Back Exam: Normal Inspection Extremities: Normal Inspection, Non-Tender, Normal Capillary Refill Skin: Warm Wound/Incisions: Dressing Dry and Intact (left foot) Neurological: No New Focal Deficit Psy/Mental Status: Alert - Problem List Review Problem List Initiated/Reviewed/Updated: Yes - My Orders Last 24 Hours: My Active Orders 09/25/18 15:39 Consult to Physician [CONS] Routine 09/25/18 15:40 Notify Provider Consults [RC] ASDIRECTED 09/26/18 09:50 Acetaminophen/HYDROcodone [Starkweather 325-10 MG] 1 tab PO Q6H PRN 09/26/18 09:51 HYDROmorphone [Dilaudid] 1 mg IVPUSH Q8H PRN 09/26/18 15:43 Magnesium Sulfate/Water [Magnesium Sulfate 2 GM in Water 50 ML] 2 gm Premix Bag 1 bag IV ONETIME 09/27/18 05:00 BMP [BASIC METABOLIC PANEL,BMP] [CHEM] DAILY CBC WITH AUTO DIFF [HEME] DAILY CRP [C-REACTIVE PROTEIN] [CHEM] DAILY LACTIC ACID [CHEM] DAILY MAGNESIUM [CHEM] DAILY 09/27/18 Dinner NPO After Midnight [Nothing per Oral After Midnight Diet] [DIET] 09/28/18 05:00 BMP [BASIC METABOLIC PANEL,BMP] [CHEM] DAILY CBC WITH AUTO DIFF [HEME] DAILY CRP [C-REACTIVE PROTEIN] [CHEM] DAILY LACTIC ACID [CHEM] DAILY MAGNESIUM [CHEM] DAILY 09/29/18 05:00 BMP [BASIC METABOLIC PANEL,BMP] [CHEM] DAILY CBC WITH AUTO DIFF [HEME] DAILY CRP [C-REACTIVE PROTEIN] [CHEM] DAILY LACTIC ACID [CHEM] DAILY MAGNESIUM [CHEM] DAILY 09/30/18 05:00 BMP [BASIC METABOLIC PANEL,BMP] [CHEM] DAILY CBC WITH AUTO DIFF [HEME] DAILY CRP [C-REACTIVE PROTEIN] [CHEM] DAILY LACTIC ACID [CHEM] DAILY MAGNESIUM [CHEM] DAILY - Plan Plan:: Assessment/Plan: Acute: Severe Left Foot Cellulitis With Significant Edema; abscess assessment, gen surg consult for I/D. POST OP~I/D, please see op note - 2/2 IV Drug Use with Meth - She is a known Meth user; last use was day before admission - She injects with re-used needle on her ankle - U/S shows report diffuse subcutaneous edema - CT scan report reads diffuse subcutaneous edema. No bony erosion to indicate osteomyelitis. No focal fluid collections of abscess are seen. - Foot X-ray on 09/21/18: Soft tissue swelling; Incidental calcaneal spur; No acute bony abnormality or erosion seen - WBC 32.52--> 27.85-->20.21-->16.57-->15.15-->15.25-->14.49-->14.19 - CRP 37.3-->34.6-->25.4-->24.1-->17.0-->13.2-->9.2 - Pain management plus NSAIDs - IV vancomycin and zosyn -> discontinue vancomycin based on worsening renal function - PT/OT consult - PT wound care - nursing to take over but PT will monitor need for debridement - Monitor for worsening of foot infection - Wound culture ordered after blisters opened - negative so far; had already started antibiotics Poly-Substance Abuse - Ampheth/Meth, Benzos and THC positive - [facility] all - Counseled on substance abuse - Per patient she was clean for 3 years after treatment and then relapsed - Multiple injection locations on extremities - consult - Essentially refusing all services - have offered multiple times - Reports she will stop on her own and does not need help DEVORA - Baseline eGFR and creatinine appear to be WNL - BUN 6-->6-->7-->4.0 - Creatinine 0.8-->1.3-->1.4-->1.5 - eGFR >60 --> 50-->46-->42 - Has been receiving IV fluids -> Increase as ordered - 2L IV fluid bolus given yesterday - Likely 2/2 poor intake and medications Resolved: E-lytes Abnormality - Hypokalemia and Hypomagnesemia - K 3.4 and Mg 1.6 - 2/2 inadequate intake; she has been sick lately - Replete and monitor Sepsis - 2/2 Severe Left Foot Infection - Tachycardia and WBC 33K plus Infection - Received IV 2 Grams of IV Rocephin x1 in ED - So far blood culture for 4 day is negative - Change antibiotic regimen to IV Vancomycin and Zosyn for pharmacy to dose Chronic: Substance Abuse: Meth and Marijuana Nicotine Dependence, Counseled on Smoking Cessation Plan: She is clinically improving Routine AM Labs SAC consult for substance abuse; patient refused UA negative for UTI Nicotine Patch Daily - initially refusing but now accepting at times Topical Hydrocortisone cream for skin rash/itching PRN QID Vitamin E level and Vitamin E 400 mg po Daily x3 doses only for anti-oxidant and wound healing Add Opioids for pain control; patient is a meth addict cannot expect to just control her pain with NSAIDs Ketorolac for anti-inflammatory agent GI/DVT PPx: H2B/Lovenox SubQ Daily PT/OT for assessment and evaluation SW/CM for d/c planning Code status: Full code; PCP: None - needs to establish LOS >96HR due to need for continued IV antibiotics, worsening renal function.
[2018-09-27] MEDS: Acetaminophen 325 MG Tab PO PRN ×3 (01:38→21:42)
[2018-09-27] MEDS: Sodium Chloride 0.9% 1,000 ML IV SCH ×3 (04:47→22:26)
[2018-09-27] MEDS: Acetaminophen/HYDROcodone 325-10 MG Tab PO PRN ×3 (04:48→21:44)
--- NOTE | 2018-09-27 06:46 | PCM.PN ---
- General Info Date of Service: 09/27/18 Subjective Update: In to see Gissel. She is sitting up in bed. She reports pain is improved. Updated on plan and discharge plan. No patient concerns. Functional Status: Reports: Pain Controlled, Tolerating Diet, Ambulating, Urinating. Denies: New Symptoms - Review of Systems General: Reports: No Symptoms. Denies: Fever, Weakness, Fatigue, Malaise, Chills HEENT: Reports: No Symptoms. Denies: Headaches, Sore Throat Pulmonary: Reports: No Symptoms. Denies: Shortness of Breath, Pleuritic Chest Pain, Cough, Sputum, Wheezing Cardiovascular: Reports: Edema (Left 2/2 infection - improving ). Denies: Chest Pain, Palpitations, Dyspnea on Exertion Gastrointestinal: Reports: No Symptoms. Denies: Abdominal Pain, Constipation, Diarrhea, Nausea, Vomiting Genitourinary: Reports: No Symptoms. Denies: Pain Musculoskeletal: Reports: Foot Pain (left - improving ) Skin: Reports: No Symptoms. Denies: Cyanosis Neurological: Reports: No Symptoms Psychiatric: Reports: No Symptoms - Patient Data Vitals - Most Recent: Last Vital Signs Temp 98.1 F 09/26/18 19:21 Pulse 62 09/26/18 19:21 Resp 18 09/26/18 19:21 BP 120/72 09/26/18 19:21 Pulse Ox 99 09/26/18 19:21 Weight - Most Recent: 172 lb 9.6 oz I&O - Last 24 Hours: Intake & Output 09/26/18 09/26/18 09/27/18 14:59 22:59 06:59 Intake Total 180 2512 2292 Balance 180 2512 2292 Lab Results Last 24 Hours: Laboratory Results - last 24 hr 09/27/18 09/27/18 09/27/18 Range/Units 05:30 05:30 05:38 WBC 11.41 H (3.98-10.04) K/mm3 RBC 3.49 L (3.98-5.22) M/mm3 Hgb 10.6 L (11.2-15.7) gm/L Hct 32.9 L (34.1-44.9) % MCV 94.3 (79.4-94.8) fl MCH 30.4 (25.6-32.2) pg MCHC 32.2 (32.2-35.5) g/dl RDW Std Deviation 40.1 (36.4-46.3) fL Plt Count 239 (182-369) K/mm3 MPV 11.0 (9.4-12.3) fl Neut % (Auto) 62.5 (34.0-71.1) % Lymph % (Auto) 26.2 (19.3-51.7) % Cocke % (Auto) 6.6 (4.7-12.5) % Eos % (Auto) 3.2 (0.7-5.8) Baso % (Auto) 0.4 (0.1-1.2) % Neut # (Auto) 7.13 H (1.56-6.13) K/mm3 Lymph # (Auto) 2.99 (1.18-3.74) K/mm3 Cocke # (Auto) 0.75 H (0.24-0.36) K/mm3 Eos # (Auto) 0.37 H (0.04-0.36) K/mm3 Baso # (Auto) 0.04 (0.01-0.08) K/mm3 Sodium 141 (136-145) mEq/L Potassium 3.8 (3.5-5.1) mEq/L Chloride 105 (98-107) mEq/L Carbon Dioxide 25 (21-32) mEq/L Anion Gap 14.8 (5-15) BUN 8 (7-18) mg/dL Creatinine 1.3 H (0.55-1.02) mg/dL Est Cr Clr Drug Dosing 54.72 mL/min Estimated GFR (MDRD) 50 (>60) mL/min BUN/Creatinine Ratio 6.2 L (14-18) Glucose 83 (74-106) mg/dL Lactic Acid 0.8 (0.4-2.0) mmol/L Calcium 8.7 (8.5-10.1) mg/dL Magnesium 1.9 (1.8-2.4) mg/dl C-Reactive Protein 6.0 H* (<1.0) mg/dL Franco Results Last 24 Hours: Microbiology 09/21/18 11:15 Gram Stain - Final Ankle, Left Anaerobic Culture - Preliminary 09/26/18 08:48 Gram Stain - Final Leg, Left Med Orders - Current: Current Medications Acetaminophen (Tylenol) 650 mg PO Q4H PRN PRN Reason: Pain (Mild 1-3)/fever Last Admin: 09/27/18 01:38 Dose: 650 mg Hydrocodone Bitart/Acetaminophen ([place] 325-10 Mg) 1 tab PO Q6H PRN PRN Reason: Pain Last Admin: 09/27/18 04:48 Dose: 1 tab Albuterol/Ipratropium (Duoneb 3.0-0.5 Mg/3 Ml) 3 ml NEB Q4H PRN PRN Reason: Shortness Of Breath/wheezing Bisacodyl (Dulcolax) 5 mg PO DAILY PRN PRN Reason: Constipation Docusate Sodium (Colace) 100 mg PO BID PRN PRN Reason: Constipation Enoxaparin Sodium (Lovenox) 40 mg SUBCUT DAILY [facility] Last Admin: 09/26/18 10:23 Dose: 40 mg Famotidine (Pepcid) 20 mg PO BID [facility] Last Admin: 09/26/18 22:29 Dose: Not Given Hydralazine HCl (Apresoline) 20 mg IVPUSH Q4H PRN PRN Reason: Hypertension Hydrocortisone (Hydrocortisone 1% Crm) 0 gm TOP QID PRN PRN Reason: Rash/Itching Last Admin: 09/19/18 12:44 Dose: 1 applic Hydromorphone HCl (Dilaudid) 1 mg IVPUSH Q8H PRN PRN Reason: Pain Sodium Chloride (Normal Saline) 1,000 mls @ 125 mls/hr IV ASDIRECTED [facility] Last Admin: 09/27/18 04:47 Dose: 125 mls/hr Lidocaine/Tetracaine (Let Soln) 3 ml TOP ONETIME PRN PRN Reason: Use for foot wound debridement Lorazepam (Ativan) 0.5 mg IVPUSH Q4H PRN PRN Reason: Withdrawal Symptoms Lorazepam (Ativan) 2 mg IVPUSH Q4H PRN PRN Reason: Seizures Lorazepam (Ativan) 1 mg IV Q6H PRN PRN Reason: Anxiety Last Admin: 09/20/18 00:34 Dose: 1 mg Metoprolol Tartrate (Lopressor) 5 mg IVPUSH Q4H PRN PRN Reason: Tachycardia Miscellaneous Information (Remove Patch) 1 ea TRDERM DAILY [facility] Last Admin: 03/31/19 10:24 Dose: Not Given Nicotine (Habitrol) 21 mg TRDERM DAILY [facility] Last Admin: 09/26/18 10:24 Dose: Not Given Ondansetron HCl (Zofran) 4 mg IV Q6H PRN PRN Reason: Nausea/Vomiting Last Admin: 09/19/18 09:52 Dose: 4 mg Polyethylene Glycol (Miralax) 17 gm PO DAILY PRN PRN Reason: Constipation Saccharomyces Boulardii (Florastor) 250 mg PO BID [facility] Last Admin: 09/26/18 22:29 Dose: Not Given Senna/Docusate Sodium (Senna Plus) 1 tab PO BID PRN PRN Reason: Constipation Temazepam (Restoril) 15 mg PO BEDTIME PRN PRN Reason: Sleep Last Admin: 09/24/18 01:08 Dose: 15 mg Discontinued Medications Hydrocodone Bitart/Acetaminophen ([place] 325-5 Mg) 1 tab PO Q4H PRN PRN Reason: Pain Last Admin: 09/26/18 00:11 Dose: 1 tab Famotidine (Pepcid) 20 mg IVPUSH ONETIME ONE Stop: 09/18/18 09:01 Last Admin: 09/18/18 09:20 Dose: 20 mg Fentanyl (Sublimaze) 100 mcg IVPUSH ONETIME ONE Stop: 09/19/18 20:27 Last Admin: 09/20/18 01:07 Dose: Not Given Fentanyl (Sublimaze) 100 mcg IM STAT ONE Stop: 09/19/18 21:27 Last Admin: 09/19/18 21:38 Dose: 100 mcg Fentanyl (Sublimaze) 100 mcg IM ONETIME ONE Stop: 09/19/18 22:51 Last Admin: 09/19/18 22:59 Dose: 100 mcg Fentanyl (Sublimaze) Confirm Administered Dose 100 mcg .ROUTE .STK-MED ONE Stop: 09/26/18 08:02 Hydromorphone HCl (Dilaudid) 0.5 mg IVPUSH ONETIME ONE Stop: 09/18/18 07:14 Last Admin: 09/18/18 07:27 Dose: 0.5 mg Hydromorphone HCl (Dilaudid) 0.5 mg IVPUSH Q6H PRN PRN Reason: Pain (severe 7-10) Last Admin: 09/25/18 20:31 Dose: 0.5 mg Hydromorphone HCl (Dilaudid) 0.5 mg IVPUSH ONETIME ONE Stop: 09/23/18 13:11 Last Admin: 09/23/18 13:38 Dose: 0.5 mg Hydromorphone HCl (Dilaudid) Confirm Administered Dose 0.5 mg .ROUTE .K-MED ONE Stop: 09/26/18 08:52 Hydromorphone HCl (Dilaudid) Confirm Administered Dose 0.5 mg .ROUTE .[facility] ONE Stop: 09/26/18 09:03 Ceftriaxone Sodium 2 gm/ (Sodium Chloride) 100 mls @ 200 mls/hr IV Q24H [facility] Last Admin: 09/17/18 23:53 Dose: 200 mls/hr Sodium Chloride (Normal Saline) Confirm Administered Dose 1,000 mls @ as directed .ROUTE .[facility] ONE Stop: 09/18/18 01:15 Last Admin: 09/18/18 02:35 Dose: Not Given Sodium Chloride (Normal Saline) 1,000 mls @ 125 mls/hr IV ASDIRECTED [facility] Last Admin: 09/19/18 02:23 Dose: 125 mls/hr Ceftriaxone Sodium 2 gm/ (Sodium Chloride) 100 mls @ 200 mls/hr IV Q24H [facility] Last Admin: 09/18/18 11:47 Dose: 200 mls/hr Piperacillin Sod/Tazobactam (Sod 4.5 gm/ Sodium Chloride) 100 mls @ 25 mls/hr IV Q8H [facility] Last Admin: 09/19/18 21:27 Dose: Not Given Piperacillin Sod/Tazobactam (Sod 4.5 gm/ Sodium Chloride) 100 mls @ 200 mls/hr IV ONETIME ONE Stop: 09/18/18 19:44 Last Admin: 09/18/18 20:52 Dose: 200 mls/hr Vancomycin HCl 1 gm/ Sodium (Chloride) 250 mls @ 250 mls/hr IV Q8H [facility] Last Admin: 09/19/18 21:28 Dose: Not Given Sodium Chloride (Normal Saline) 1,000 mls @ 50 mls/hr IV ASDIRECTED [facility] Last Admin: 09/22/18 08:04 Dose: 50 mls/hr Magnesium Sulfate 2 gm/ Premix 50 mls @ 25 mls/hr IV ONETIME ONE Stop: 09/19/18 12:44 Last Admin: 09/19/18 12:08 Dose: 25 mls/hr Vancomycin HCl 1 gm/ Sodium (Chloride) 250 mls @ 250 mls/hr IV Q8H [facility] Last Admin: 09/20/18 01:38 Dose: Not Given Piperacillin Sod/Tazobactam (Sod 4.5 gm/ Sodium Chloride) 100 mls @ 25 mls/hr IV Q8H [facility] Last Admin: 09/24/18 09:31 Dose: 25 mls/hr Vancomycin HCl 1 gm/ Sodium (Chloride) 250 mls @ 250 mls/hr IV Q8H [facility] Last Admin: 09/21/18 02:49 Dose: Not Given Vancomycin HCl 1 gm/Vancomycin HCl 250 mg/ Sodium Chloride 500 mls @ 333.333 mls/hr IV Q8H [facility] Last Admin: 09/21/18 03:09 Dose: 250 mls/hr Vancomycin HCl 1 gm/Vancomycin HCl 250 mg/ Sodium Chloride 250 mls @ 166.667 mls/hr IV Q8H [facility] Last Admin: 09/22/18 11:30 Dose: Not Given Magnesium Sulfate 2 gm/ Premix 50 mls @ 25 mls/hr IV ONETIME ONE Stop: 09/21/18 15:16 Last Admin: 09/21/18 15:32 Dose: 25 mls/hr Sodium Chloride (Normal Saline) 1,000 mls @ 125 mls/hr IV ASDIRECTED [facility] Stop: 09/22/18 20:00 Last Admin: 09/22/18 11:31 Dose: 125 mls/hr Sodium Chloride (Normal Saline) 1,000 mls @ 50 mls/hr IV ASDIRECTED [facility] Last Admin: 09/22/18 19:13 Dose: 50 mls/hr Vancomycin HCl 1 gm/ Sodium (Chloride) 250 mls @ 250 mls/hr IV Q12H [facility] Last Admin: 09/24/18 08:23 Dose: 250 mls/hr Sodium Chloride (Normal Saline) 1,000 mls @ 999 mls/hr IV ASDIRECTED ONE Stop: 09/23/18 14:00 Last Admin: 09/23/18 13:37 Dose: 999 mls/hr Sodium Chloride (Normal Saline) 1,000 mls @ 999 mls/hr IV ONETIME ONE Stop: 09/23/18 15:25 Last Admin: 09/23/18 14:47 Dose: 999 mls/hr Sodium Chloride (Normal Saline) 1,000 mls @ 75 mls/hr IV ASDIRECTED [facility] Last Admin: 09/23/18 15:52 Dose: 75 mls/hr Ampicillin Sodium/Sulbactam (Sodium 3 gm/ Sodium Chloride) 100 mls @ 200 mls/ hr IV Q8H [facility] Last Admin: 09/24/18 11:39 Dose: Not Given Piperacillin Sod/Tazobactam (Sod 4.5 gm/ Sodium Chloride) 100 mls @ 25 mls/hr IV Q8H [facility] Last Admin: 09/26/18 10:26 Dose: 25 mls/hr Lidocaine HCl (Xylocaine-Mpf 1%) Confirm Administered Dose 4 mls @ as directed .ROUTE .STK-MED ONE Stop: 09/26/18 08:03 Magnesium Sulfate 2 gm/ Premix 50 mls @ 25 mls/hr IV ONETIME ONE Stop: 09/26/18 17:42 Last Admin: 09/26/18 15:58 Dose: 25 mls/hr Iopamidol (Isovue-370 (76%)) 100 ml IV ONETIME ONE Stop: 09/17/18 22:27 Last Admin: 09/18/18 02:33 Dose: Not Given Ketamine HCl (Ketalar) Confirm Administered Dose 500 mg .ROUTE .STK-MED ONE Stop: 09/26/18 08:02 Ketamine HCl (Ketalar) Confirm Administered Dose 500 mg .ROUTE .STK-MED ONE Stop: 09/26/18 08:06 Ketorolac Tromethamine (Toradol) 60 mg IM ONETIME ONE Stop: 09/17/18 21:43 Last Admin: 09/17/18 21:47 Dose: 60 mg Ketorolac Tromethamine (Toradol) 60 mg IM ONETIME ONE Stop: 09/17/18 21:44 Last Admin: 09/17/18 21:49 Dose: Not Given Ketorolac Tromethamine (Toradol) 30 mg IM Q6H PRN PRN Reason: Pain (moderate 4-6) Last Admin: 09/20/18 08:40 Dose: 30 mg Ketorolac Tromethamine (Toradol) 30 mg IVPUSH Q6H PRN PRN Reason: Pain (moderate 4-6) Last Admin: 09/21/18 21:33 Dose: 30 mg Lidocaine HCl (Xylocaine 1%) 10 ml INJECT ONETIME ONE Stop: 09/19/18 20:27 Last Admin: 09/19/18 23:02 Dose: 10 ml Lidocaine/Tetracaine (Let Soln) 3 ml TOP ONETIME ONE Stop: 09/23/18 13:12 Last Admin: 09/23/18 13:37 Dose: 3 ml Magnesium Sulfate (Pharmacy To Dose - Magnesium Replacement) 0 dose .XX ASDIRECTED PRN PRN Reason: RX TO WATCH MAG Midazolam HCl (Versed 1 Mg/Ml) 5 mg IVPUSH ONETIME ONE Stop: 09/19/18 20:26 Last Admin: 09/20/18 01:06 Dose: Not Given Midazolam HCl (Versed 1 Mg/Ml) 4 mg IM STAT ONE Stop: 09/19/18 21:27 Last Admin: 09/19/18 21:36 Dose: 4 mg Midazolam HCl (Versed 1 Mg/Ml) Confirm Administered Dose 2 mg .ROUTE .STK-MED ONE Stop: 09/26/18 08:02 Potassium Chloride (Pharmacy To Dose - Potassium Replacement) 0 dose .XX ASDIRECTED PRN PRN Reason: RX TO WATCH K Potassium Chloride (Klor-Con M20) 40 meq PO ONETIME ONE Stop: 09/18/18 09:16 Last Admin: 09/18/18 09:20 Dose: 40 meq Potassium Chloride (Klor-Con M20) 40 meq PO Q4H [facility] Stop: 09/19/18 14:46 Last Admin: 09/19/18 15:30 Dose: 40 meq Potassium Chloride (Klor-Con M20) 40 meq PO BID [facility] Stop: 09/26/18 09:01 Last Admin: 09/26/18 10:23 Dose: 40 meq Propofol (Diprivan 20 Ml) Confirm Administered Dose 600 mg .ROUTE .STK-MED ONE Stop: 09/26/18 08:02 Scopolamine (Transderm-Scop) 1.5 mg TRDERM Q72H ONE Stop: 09/19/18 09:49 Last Admin: 09/19/18 10:16 Dose: 1.5 mg Tramadol HCl (Ultram) 50 mg PO ONETIME ONE Stop: 09/17/18 21:44 Last Admin: 03/22/19 21:48 Dose: 50 mg Tramadol HCl (Ultram) 100 mg PO ONETIME ONE Stop: 09/17/18 21:44 Last Admin: 09/17/18 21:49 Dose: Not Given Vancomycin HCl (Pharmacy To Dose - Vancomycin) 0 dose .XX ASDIRECTED PRN PRN Reason: RX TO DOSE VANCO Vancomycin HCl (Vancomycin) Confirm Administered Dose 1 gm .ROUTE .STK-MED ONE Stop: 09/23/18 20:24 Last Admin: 09/23/18 22:59 Dose: Not Given Vitamin E (Vitamin E) 400 units PO DAILY [facility] Stop: 09/22/18 09:01 Last Admin: 09/22/18 08:00 Dose: 400 units - Exam Quality Assessment: DVT Prophylaxis General: Alert, Oriented, Cooperative, No Acute Distress HEENT: Pupils Equal, Pupils Reactive, EOMI, Mucous Membr. Moist/Sour [place] Neck: Supple, Trachea Midline Lungs: Clear to Auscultation, Normal Respiratory Effort Cardiovascular: Regular Rate, Regular Rhythm GI/Abdominal Exam: Normal Bowel Sounds, Soft, Non-Tender, No Distention, No Abnormal Bruit (Female) Exam: Deferred Extremities: Normal Inspection, Normal Range of Motion, Normal Capillary Refill , Pedal Edema (Left 2/2 inflammation - improving ), Leg Pain (left foot ) Peripheral Pulses: 1+: Dorsalis Pedis (L), 2+: Radial (L), Radial (R), Dorsalis Pedis (R) Skin: Warm, Dry, Intact Wound/Incisions: Dressing Dry and Intact, Erythema Improving Neurological: No New Focal Deficit Psy/Mental Status: Alert, Normal Affect, Normal Mood - Problem List & Annotations (1) Cellulitis of left ankle SNOMED Code(s): 55452607 Code(s): L03.116 - CELLULITIS OF LEFT LOWER LIMB Status: Acute Priority: High Current Visit: Yes (2) Cellulitis of left foot SNOMED Code(s): 803309411 Code(s): L03.116 - CELLULITIS OF LEFT LOWER LIMB Status: Acute Priority: High Current Visit: Yes (3) Elevated C-reactive protein SNOMED Code(s): 027698245370926 Code(s): R79.82 - ELEVATED C-REACTIVE PROTEIN (CRP) Status: Acute Priority: High Current Visit: Yes (4) IV drug user SNOMED Code(s): 325462190 Code(s): F19.90 - OTHER PSYCHOACTIVE SUBSTANCE USE, UNSPECIFIED, UNCOMPLICATED Status: Acute Priority: High Current Visit: Yes (5) Methamphetamine abuse SNOMED Code(s): 949308092 Code(s): F15.10 - OTHER STIMULANT ABUSE, UNCOMPLICATED Status: Acute Priority: High Current Visit: Yes (6) Neutrophilic leukocytosis SNOMED Code(s): 373041225, 334907711 Code(s): D72.9 - DISORDER OF WHITE BLOOD CELLS, UNSPECIFIED Status: Acute Priority: High Current Visit: Yes (7) DEVORA (acute kidney injury) SNOMED Code(s): 26584385 Code(s): N17.9 - ACUTE KIDNEY FAILURE, UNSPECIFIED Status: Acute Current Visit: Yes - Problem List Review Problem List Initiated/Reviewed/Updated: Yes - Plan Plan:: Assessment/Plan: Acute: Severe Left Foot Cellulitis With Significant Edema; abscess assessment, gen surg consult for I/D. POST OP day 1 ~I/D, please see op note - / IV Drug Use with Meth - She is a known Meth user; last use was day before admission - She injects with re-used needle on her ankle - U/S shows report diffuse subcutaneous edema - CT scan report reads diffuse subcutaneous edema. No bony erosion to indicate osteomyelitis. No focal fluid collections of abscess are seen. - Foot X-ray on 09/21/18: Soft tissue swelling; Incidental calcaneal spur; No acute bony abnormality or erosion seen - WBC 32.52--> 27.85-->20.21-->16.57-->15.15-->15.25-->14.49-->14.19-->13.59- ->13.51-->11.41 - CRP 37.3-->34.6-->25.4-->24.1-->17.0-->13.2-->9.2-->10.8-->8.6-->6.0 - Pain management plus NSAIDs - IV vancomycin and zosyn -> discontinue vancomycin based on worsening renal function - PT/OT consult - PT wound care - nursing to take over but PT will monitor need for debridement - Monitor for worsening of foot infection - Wound culture ordered after blisters opened - negative so far; had already started antibiotics - Culture obtained intraoperatively - pending Poly-Substance Abuse - Ampheth/Meth, Benzos and THC positive - [facility] consult, Mike consult, [facility] consult; patient refused all - Counseled on substance abuse - Per patient she was clean for 3 years after treatment and then relapsed - Multiple injection locations on extremities - consult - Essentially refusing all services - have offered multiple times - Reports she will stop on her own and does not need help DEVORA, improivng - Baseline eGFR and creatinine appear to be WNL - BUN 6-->6-->7-->4.0-->8-->7-->8 - Creatinine 0.8-->1.3-->1.4-->1.5-->1.3 - eGFR >60 --> 50-->46-->42-->50 - Has been receiving IV fluids -> Increase as ordered - 2L IV fluid bolus given - Likely 2/2 poor intake and medications Resolved: E-lytes Abnormality - Hypokalemia and Hypomagnesemia - K 3.4 and Mg 1.6 - 2/2 inadequate intake; she has been sick lately - Replete and monitor Sepsis - 2/2 Severe Left Foot Infection - Tachycardia and WBC 33K plus Infection - Received IV 2 Grams of IV Rocephin x1 in ED - So far blood culture for 4 day is negative - Change antibiotic regimen to IV Vancomycin and Zosyn for pharmacy to dose Chronic: Substance Abuse: Meth and Marijuana Nicotine Dependence, Counseled on Smoking Cessation Plan: She is clinically improving Routine AM Labs SAC consult for substance abuse; patient refused UA negative for UTI Nicotine Patch Daily - initially refusing but now accepting at times Topical Hydrocortisone cream for skin rash/itching PRN QID Vitamin E level and Vitamin E 400 mg po Daily x3 doses only for anti-oxidant and wound healing Add Opioids for pain control; patient is a meth addict cannot expect to just control her pain with NSAIDs Ketorolac for anti-inflammatory agent -> discontinue GI/DVT PPx: H2B/Lovenox SubQ Daily PT/OT for assessment and evaluation SW/ for d/c planning Code status: Full code; PCP: None - needs to establish LOS >96HR due to need for continued IV antibiotics, surgical management. Will return to OR on 09/28/18 for continued management; possible discharge 09/29/18 pending surgical recommendations.
--- NOTE | 2018-09-27 07:19 | OR ---
DATE OF OPERATION: 09/26/2018 SURGEON: Mitesh Jurado MD PREOPERATIVE DIAGNOSIS: Left foot abscess. POSTOPERATIVE DIAGNOSIS: Left foot abscess. OPERATION PERFORMED: Incision and drainage of left foot abscess. ANESTHESIA: MAC. SPECIMEN: Culture and sensitivity. INDICATION FOR PROCEDURE: This 27-year-old female has a large abscess on the lateral side of her left foot and ankle. This is due to a drug injection site. DESCRIPTION OF PROCEDURE: After adequate preparation, a 2-inch incision was made over the lateral malleolus. This revealed a moderate amount of probably 20 to 30 mL of purulent pus. She did have good bleeding through the tissue and deeper tissue looked viable and not necrotic. The wound was irrigated and then packed with 2 x 2 gauze pads. Culture and sensitivity, both aerobic and anaerobic have been taken. The wound was then left open and 4x4s and gauze wrapped around the ankle. ESTIMATED BLOOD LOSS: MMODAL /[id number]
[2018-09-27] MEDS: Saccharomyces Boulardii (Probiotic) 250 MG Cap PO SCH ×2 (09:28→21:50)
[2018-09-27] MEDS: Nicotine 21 MG/24 Hr Patch TRDERM SCH (09:28)
[2018-09-27] MEDS: Enoxaparin 40 MG/0.4 ML Syringe SUBCUT SCH (09:28)
[2018-09-27] MEDS: Famotidine 20 MG Tab PO SCH ×2 (09:28→21:43)
[2018-09-27] MEDS: Piperacillin/Tazobactam 4.5 GM in Sodium Chloride 0.9% 100 ML IV SCH ×2 (12:45→21:50)
--- NOTE | 2018-09-27 14:04 | PCM.PREANE ---
Preanesthetic Assessment - Anesthesia/Transfusion/Family Hx Anesthesia History: Prior Anesthesia Without Reaction Family History of Anesthesia Reaction: No Transfusion History: No Prior Transfusion(s) Type of Transfusion Reactions: Reports: Unknown - Review of Systems General: Fatigue, Malaise, Other (left foot cellulits, IV drug user) Pulmonary: Other (smoker,) Cardiovascular: No Symptoms Gastrointestinal: No Symptoms Neurological: No Symptoms Other: Reports: None - Physical Assessment NPO Status Date: 09/26/18 Pulse: 57 O2 Sat by Pulse Oximetry: 97 Respiratory Rate: 12 Blood Pressure: 122/59 Temperature: 36.7 C Vital Signs: Last Vital Signs Temp 36.7 C 09/27/18 12:42 Pulse 57 L 09/27/18 09:27 Resp 12 09/27/18 09:27 BP 122/59 L 09/27/18 09:27 Pulse Ox 97 09/27/18 09:27 Height: 1.6 m Weight: 78.29 kg ASA Class: 2 Mental Status: Alert & Oriented x3 Airway Class: Mallampati = 2 Dentition: Reports: Normal Dentition Thyro-Mental Finger Breadths: 3 Mouth Opening Finger Breadths: 3 ROM/Head Extension: Full Lungs: Clear to Auscultation, Normal Respiratory Effort Cardiovascular: Regular Rate, Regular Rhythm - Lab Values: Laboratory Last Values WBC 11.41 K/mm3 (3.98-10.04) H 09/27/18 05:30 RBC 3.49 M/mm3 (3.98-5.22) L 09/27/18 05:30 Hgb 10.6 gm/L (11.2-15.7) L 09/27/18 05:30 Hct 32.9 % (34.1-44.9) L 09/27/18 05:30 MCV 94.3 fl (79.4-94.8) 09/27/18 05:30 MCH 30.4 pg (25.6-32.2) 09/27/18 05:30 MCHC 32.2 g/dl (32.2-35.5) 09/27/18 05:30 RDW Std Deviation 40.1 fL (36.4-46.3) 09/27/18 05:30 Plt Count 239 K/mm3 (182-369) 09/27/18 05:30 MPV 11.0 fl (9.4-12.3) 09/27/18 05:30 Neut % (Auto) 62.5 % (34.0-71.1) 09/27/18 05:30 Lymph % (Auto) 26.2 % (19.3-51.7) 09/27/18 05:30 [place] % (Auto) 6.6 % (4.7-12.5) 09/27/18 05:30 Eos % (Auto) 3.2 (0.7-5.8) 09/27/18 05:30 Baso % (Auto) 0.4 % (0.1-1.2) 09/27/18 05:30 Neut # (Auto) 7.13 K/mm3 (1.56-6.13) H 09/27/18 05:30 Lymph # (Auto) 2.99 K/mm3 (1.18-3.74) 09/27/18 05:30 [place] # (Auto) 0.75 K/mm3 (0.24-0.36) H 09/27/18 05:30 Eos # (Auto) 0.37 K/mm3 (0.04-0.36) H 09/27/18 05:30 Baso # (Auto) 0.04 K/mm3 (0.01-0.08) 09/27/18 05:30 Manual Slide Review Abnormal smear 09/27/18 05:30 Sodium 141 mEq/L (136-145) 09/27/18 05:30 Potassium 3.8 mEq/L (3.5-5.1) 09/27/18 05:30 Chloride 105 mEq/L (98-107) 09/27/18 05:30 Carbon Dioxide 25 mEq/L (21-32) 09/27/18 05:30 Anion Gap 14.8 (5-15) 09/27/18 05:30 BUN 8 mg/dL (7-18) 09/27/18 05:30 Creatinine 1.3 mg/dL (0.55-1.02) H 09/27/18 05:30 Est Cr Clr Drug Dosing 54.72 mL/min 09/27/18 05:30 Estimated GFR (MDRD) 50 mL/min (>60) 09/27/18 05:30 BUN/Creatinine Ratio 6.2 (14-18) L 09/27/18 05:30 Glucose 83 mg/dL (74-106) 09/27/18 05:30 Lactic Acid 0.8 mmol/L (0.4-2.0) 09/27/18 05:38 Calcium 8.7 mg/dL (8.5-10.1) 09/27/18 05:30 Magnesium 1.9 mg/dl (1.8-2.4) 09/27/18 05:30 Total Bilirubin 1.1 mg/dL (0.2-1.0) H 09/17/18 21:57 AST 14 U/L (15-37) L 09/17/18 21:57 ALT 22 U/L (14-59) 09/17/18 21:57 Alkaline Phosphatase 106 U/L (46-116) 09/17/18 21:57 C-Reactive Protein 6.0 mg/dL (<1.0) H* 09/27/18 05:30 Total Protein 7.0 g/dl (6.4-8.2) 09/17/18 21:57 Albumin 3.2 g/dl (3.4-5.0) L 09/17/18 21:57 Globulin 3.8 gm/dL 09/17/18 21:57 Albumin/Globulin Ratio 0.8 (1-2) L 09/17/18 21:57 Alpha-Tocopherol Vit E 6.1 mg/L (5.9-19.4) 09/20/18 05:45 Gamma-Tocopherol Vit E 1.1 mg/L (0.7-4.9) 09/20/18 05:45 HCG, Qual Negative (NEGATIVE) 09/17/18 21:57 Urine Color Yellow (Yellow) 09/18/18 18:00 Urine Appearance Clear (Clear) 09/18/18 18:00 Urine pH 6.5 (5.0-8.0) 09/18/18 18:00 Ur Specific [place] 1.020 (1.005-1.030) 09/18/18 18:00 Urine Protein 2+ (Negative) H 09/18/18 18:00 Urine Glucose (UA) Trace (Negative) H 09/18/18 18:00 Urine Ketones Trace (Negative) H 09/18/18 18:00 Urine Occult Blood Negative (Negative) 09/18/18 18:00 Urine Nitrite Negative (Negative) 09/18/18 18:00 Urine Bilirubin 1+ (Negative) H 09/18/18 18:00 Urine Urobilinogen >=8.0 (0.2-1.0) H 09/18/18 18:00 Ur Leukocyte Esterase Negative (Negative) 09/18/18 18:00 Urine RBC 0-5 /hpf (0-5) 09/18/18 18:00 Urine WBC 0-5 /hpf (0-5) 09/18/18 18:00 Ur Epithelial Cells Not Reportable 09/18/18 18:00 Ur Squamous Epith Cells 5-10 /hpf (0-5) H 09/18/18 18:00 Urine Bacteria Few /hpf (FEW) 09/18/18 18:00 Urine Mucus Few /hpf (FEW) 09/18/18 18:00 Vancomycin Trough 35.7 (10.0-20.0) H 09/22/18 10:37 Random Vancomycin 11.0 ug/mL 09/23/18 06:12 Urine Opiates Screen Presumptive positive (GCQZKC=055) H 09/18/18 16:03 Ur Buprenorphine Scrn Negative (CUTOFF=10) 09/18/18 16:03 Ur Oxycodone Screen Negative ng/mL (Cutoff:=100) 09/18/18 16:03 Urine Methadone Screen Negative (ZPKUHF=641) 09/18/18 16:03 Ur Propoxyphene Screen Negative (SEPVIU=979) 09/18/18 16:03 Ur Barbiturates Screen Negative (VTALDG=189) 09/18/18 16:03 Ur Tricyclics Screen Negative (ZZVMIM=685) 09/18/18 16:03 Ur Phencyclidine Scrn Negative (CUTOFF=25) 09/18/18 16:03 Ur Amphetamine Screen Positive H 09/18/18 16:03 Ur Amphetamines Screen Positive H 09/18/18 16:03 U Amphetam Cnfrm GC/MS 4504 ng/mL (NOTDET) H 09/18/18 16:03 U Amphetamine (GC/MS) 4474 ng/mL (Nojgfz=576) 09/18/18 16:03 U Amphetamine/Methamph 45871 ng/mL (NOTDET) H 09/18/18 16:03 U Methamphetamines Scrn Positive H 09/18/18 16:03 U Methamphetamin GC/MS >4000 ng/mL (Thvvbk=828) 09/18/18 16:03 Urine MDEA Not detected ng/mL (NOTDET) 09/18/18 16:03 Urine MDA Not detected ng/mL (NOTDET) 09/18/18 16:03 Urine MDMA Screen Not detected ng/mL (NOTDET) 09/18/18 16:03 U Benzodiazepines Scrn Presumptive positive (PQTYHB=880) H 09/18/18 16:03 U Cocaine Metab Screen Negative (ATFWZG=278) 09/18/18 16:03 Urine Cannabinoids Positive H 09/18/18 16:03 U Cannabinoids (GC/MS) 164 ng/mL (Cutoff=10) 09/18/18 16:03 U Marijuana (THC) Screen Presumptive positive (CUTOFF=50) H 09/18/18 16:03 - Allergies Allergies/Adverse Reactions: Allergies Allergy/AdvReac Type Severity Reaction Status Date / Time No Known Allergies Allergy Verified 09/18/18 03:43 - Blood Blood Available: No Product(s) Available: None - Anesthesia Plan Pre-Op Medication Ordered: None - Acknowledgements Anesthesia Type Planned: MAC Pt an Appropriate Candidate for the Planned Anesthesia: Yes Alternatives and Risks of Anesthesia Discussed w Pt/Guardian: Yes Pt/Guardian Understands and Agrees with Anesthesia Plan: Yes PreAnesthesia Questionnaire - Past Health History Medical/Surgical History: Denies Medical/Surgical History HEENT History: Reports: Impaired Vision, Other (See Below) Other HEENT History: pt wears glasses [employer] History: Reports: Psychiatric History: Reports: Anxiety, Depression Endocrine/Metabolic History: Reports: Obesity/BMI 30+ - Infectious Disease History Infectious Disease History: Reports: Chicken Pox - Past Surgical History HEENT Surgical History: Reports: None Endocrine Surgical History: Reports: None - SUBSTANCE USE Smoking Status *Q: Current Every Day Smoker Tobacco Use Within Last Twelve Months: Cigarettes Second Hand Smoke Exposure: No Recreational Drug Use History: Yes Recreational Drug Type: Reports: Marijuana/Hashish, Methamphetamine - HOME MEDS Home Medications: Home Meds . [No Known Home Meds] 09/17/18 [History] - CURRENT (IN HOUSE) MEDS Current Meds: Current Medications Acetaminophen (Tylenol) 650 mg PO Q4H PRN PRN Reason: Pain (Mild 1-3)/fever Last Admin: 09/27/18 13:24 Dose: 650 mg Hydrocodone Bitart/Acetaminophen ([place] 325-10 Mg) 1 tab PO Q6H PRN PRN Reason: Pain Last Admin: 09/27/18 13:25 Dose: 1 tab Albuterol/Ipratropium (Duoneb 3.0-0.5 Mg/3 Ml) 3 ml NEB Q4H PRN PRN Reason: Shortness Of Breath/wheezing Bisacodyl (Dulcolax) 5 mg PO DAILY PRN PRN Reason: Constipation Docusate Sodium (Colace) 100 mg PO BID PRN PRN Reason: Constipation Enoxaparin Sodium (Lovenox) 40 mg SUBCUT DAILY REPLACED BY [facility] Last Admin: 09/27/18 09:28 Dose: 40 mg Famotidine (Pepcid) 20 mg PO BID REPLACED BY [facility] Last Admin: 09/27/18 09:28 Dose: 20 mg Hydralazine HCl (Apresoline) 20 mg IVPUSH Q4H PRN PRN Reason: Hypertension Hydrocortisone (Hydrocortisone 1% Crm) 0 gm TOP QID PRN PRN Reason: Rash/Itching Last Admin: 09/19/18 12:44 Dose: 1 applic Hydromorphone HCl (Dilaudid) 1 mg IVPUSH Q8H PRN PRN Reason: Pain Sodium Chloride (Normal Saline) 1,000 mls @ 125 mls/hr IV ASDIRECTED REPLACED BY [facility] Last Admin: 09/27/18 13:42 Dose: 125 mls/hr Piperacillin Sod/Tazobactam (Sod 4.5 gm/ Sodium Chloride) 100 mls @ 200 mls/hr IV Q8H REPLACED BY [facility] Last Admin: 09/27/18 12:45 Dose: 200 mls/hr Piperacillin Sod/Tazobactam (Sod 4.5 gm/ Sodium Chloride) 100 mls @ 25 mls/hr IV Q8H REPLACED BY [facility] Lidocaine/Tetracaine (Let Soln) 3 ml TOP ONETIME PRN PRN Reason: Use for foot wound debridement Lorazepam (Ativan) 0.5 mg IVPUSH Q4H PRN PRN Reason: Withdrawal Symptoms Lorazepam (Ativan) 2 mg IVPUSH Q4H PRN PRN Reason: Seizures Lorazepam (Ativan) 1 mg IV Q6H PRN PRN Reason: Anxiety Last Admin: 09/20/18 00:34 Dose: 1 mg Metoprolol Tartrate (Lopressor) 5 mg IVPUSH Q4H PRN PRN Reason: Tachycardia Miscellaneous Information (Remove Patch) 1 ea TRDERM DAILY REPLACED BY [facility] Last Admin: 09/27/18 09:29 Dose: Not Given Nicotine (Habitrol) 21 mg TRDERM DAILY REPLACED BY [facility] Last Admin: 09/27/18 09:28 Dose: Not Given Ondansetron HCl (Zofran) 4 mg IV Q6H PRN PRN Reason: Nausea/Vomiting Last Admin: 09/19/18 09:52 Dose: 4 mg Polyethylene Glycol (Miralax) 17 gm PO DAILY PRN PRN Reason: Constipation Saccharomyces Boulardii (Florastor) 250 mg PO BID REPLACED BY [facility] Last Admin: 09/27/18 09:28 Dose: 250 mg Senna/Docusate Sodium (Senna Plus) 1 tab PO BID PRN PRN Reason: Constipation Temazepam (Restoril) 15 mg PO BEDTIME PRN PRN Reason: Sleep Last Admin: 09/24/18 01:08 Dose: 15 mg Discontinued Medications Hydrocodone Bitart/Acetaminophen ([place] 325-5 Mg) 1 tab PO Q4H PRN PRN Reason: Pain Last Admin: 09/26/18 00:11 Dose: 1 tab Famotidine (Pepcid) 20 mg IVPUSH ONETIME ONE Stop: 09/18/18 09:01 Last Admin: 09/18/18 09:20 Dose: 20 mg Fentanyl (Sublimaze) 100 mcg IVPUSH ONETIME ONE Stop: 09/19/18 20:27 Last Admin: 09/20/18 01:07 Dose: Not Given Fentanyl (Sublimaze) 100 mcg IM STAT ONE Stop: 09/19/18 21:27 Last Admin: 09/19/18 21:38 Dose: 100 mcg Fentanyl (Sublimaze) 100 mcg IM ONETIME ONE Stop: 09/19/18 22:51 Last Admin: 09/19/18 22:59 Dose: 100 mcg Fentanyl (Sublimaze) Confirm Administered Dose 100 mcg .ROUTE .STK-MED ONE Stop: 09/26/18 08:02 Hydromorphone HCl (Dilaudid) 0.5 mg IVPUSH ONETIME ONE Stop: 09/18/18 07:14 Last Admin: 09/18/18 07:27 Dose: 0.5 mg Hydromorphone HCl (Dilaudid) 0.5 mg IVPUSH Q6H PRN PRN Reason: Pain (severe 7-10) Last Admin: 09/25/18 20:31 Dose: 0.5 mg Hydromorphone HCl (Dilaudid) 0.5 mg IVPUSH ONETIME ONE Stop: 09/23/18 13:11 Last Admin: 09/23/18 13:38 Dose: 0.5 mg Hydromorphone HCl (Dilaudid) Confirm Administered Dose 0.5 mg .ROUTE .STK-MED ONE Stop: 09/26/18 08:52 Hydromorphone HCl (Dilaudid) Confirm Administered Dose 0.5 mg .ROUTE .STK-MED ONE Stop: 09/26/18 09:03 Ceftriaxone Sodium 2 gm/ (Sodium Chloride) 100 mls @ 200 mls/hr IV Q24H REPLACED BY [facility] Last Admin: 09/17/18 23:53 Dose: 200 mls/hr Sodium Chloride (Normal Saline) Confirm Administered Dose 1,000 mls @ as directed .ROUTE .STK-MED ONE Stop: 09/18/18 01:15 Last Admin: 09/18/18 02:35 Dose: Not Given Sodium Chloride (Normal Saline) 1,000 mls @ 125 mls/hr IV ASDIRECTED REPLACED BY [facility] Last Admin: 09/19/18 02:23 Dose: 125 mls/hr Ceftriaxone Sodium 2 gm/ (Sodium Chloride) 100 mls @ 200 mls/hr IV Q24H REPLACED BY [facility] Last Admin: 09/18/18 11:47 Dose: 200 mls/hr Piperacillin Sod/Tazobactam (Sod 4.5 gm/ Sodium Chloride) 100 mls @ 25 mls/hr IV Q8H REPLACED BY [facility] Last Admin: 09/19/18 21:27 Dose: Not Given Piperacillin Sod/Tazobactam (Sod 4.5 gm/ Sodium Chloride) 100 mls @ 200 mls/hr IV ONETIME ONE Stop: 09/18/18 19:44 Last Admin: 09/18/18 20:52 Dose: 200 mls/hr Vancomycin HCl 1 gm/ Sodium (Chloride) 250 mls @ 250 mls/hr IV Q8H REPLACED BY [facility] Last Admin: 09/19/18 21:28 Dose: Not Given Sodium Chloride (Normal Saline) 1,000 mls @ 50 mls/hr IV ASDIRECTED REPLACED BY [facility] Last Admin: 09/22/18 08:04 Dose: 50 mls/hr Magnesium Sulfate 2 gm/ Premix 50 mls @ 25 mls/hr IV ONETIME ONE Stop: 09/19/18 12:44 Last Admin: 09/19/18 12:08 Dose: 25 mls/hr Vancomycin HCl 1 gm/ Sodium (Chloride) 250 mls @ 250 mls/hr IV Q8H REPLACED BY [facility] Last Admin: 09/20/18 01:38 Dose: Not Given Piperacillin Sod/Tazobactam (Sod 4.5 gm/ Sodium Chloride) 100 mls @ 25 mls/hr IV Q8H REPLACED BY [facility] Last Admin: 09/24/18 09:31 Dose: 25 mls/hr Vancomycin HCl 1 gm/ Sodium (Chloride) 250 mls @ 250 mls/hr IV Q8H REPLACED BY [facility] Last Admin: 09/21/18 02:49 Dose: Not Given Vancomycin HCl 1 gm/Vancomycin HCl 250 mg/ Sodium Chloride 500 mls @ 333.333 mls/hr IV Q8H REPLACED BY [facility] Last Admin: 09/21/18 03:09 Dose: 250 mls/hr Vancomycin HCl 1 gm/Vancomycin HCl 250 mg/ Sodium Chloride 250 mls @ 166.667 mls/hr IV Q8H REPLACED BY [facility] Last Admin: 09/22/18 11:30 Dose: Not Given Magnesium Sulfate 2 gm/ Premix 50 mls @ 25 mls/hr IV ONETIME ONE Stop: 09/21/18 15:16 Last Admin: 09/21/18 15:32 Dose: 25 mls/hr Sodium Chloride (Normal Saline) 1,000 mls @ 125 mls/hr IV ASDIRECTED REPLACED BY [facility] Stop: 09/22/18 20:00 Last Admin: 09/22/18 11:31 Dose: 125 mls/hr Sodium Chloride (Normal Saline) 1,000 mls @ 50 mls/hr IV ASDIRECTED REPLACED BY [facility] Last Admin: 09/22/18 19:13 Dose: 50 mls/hr Vancomycin HCl 1 gm/ Sodium (Chloride) 250 mls @ 250 mls/hr IV Q12H REPLACED BY [facility] Last Admin: 09/24/18 08:23 Dose: 250 mls/hr Sodium Chloride (Normal Saline) 1,000 mls @ 999 mls/hr IV ASDIRECTED ONE Stop: 09/23/18 14:00 Last Admin: 09/23/18 13:37 Dose: 999 mls/hr Sodium Chloride (Normal Saline) 1,000 mls @ 999 mls/hr IV ONETIME ONE Stop: 09/23/18 15:25 Last Admin: 09/23/18 14:47 Dose: 999 mls/hr Sodium Chloride (Normal Saline) 1,000 mls @ 75 mls/hr IV ASDIRECTED REPLACED BY [facility] Last Admin: 09/23/18 15:52 Dose: 75 mls/hr Ampicillin Sodium/Sulbactam (Sodium 3 gm/ Sodium Chloride) 100 mls @ 200 mls/ hr IV Q8H REPLACED BY [facility] Last Admin: 09/24/18 11:39 Dose: Not Given Piperacillin Sod/Tazobactam (Sod 4.5 gm/ Sodium Chloride) 100 mls @ 25 mls/hr IV Q8H REPLACED BY [facility] Last Admin: 09/26/18 10:26 Dose: 25 mls/hr Lidocaine HCl (Xylocaine-Mpf 1%) Confirm Administered Dose 4 mls @ as directed .ROUTE .STK-MED ONE Stop: 09/26/18 08:03 Magnesium Sulfate 2 gm/ Premix 50 mls @ 25 mls/hr IV ONETIME ONE Stop: 09/26/18 17:42 Last Admin: 09/26/18 15:58 Dose: 25 mls/hr Iopamidol (Isovue-370 (76%)) 100 ml IV ONETIME ONE Stop: 09/17/18 22:27 Last Admin: 09/18/18 02:33 Dose: Not Given Ketamine HCl (Ketalar) Confirm Administered Dose 500 mg .ROUTE .STK-MED ONE Stop: 09/26/18 08:02 Ketamine HCl (Ketalar) Confirm Administered Dose 500 mg .ROUTE .STK-MED ONE Stop: 09/26/18 08:06 Ketorolac Tromethamine (Toradol) 60 mg IM ONETIME ONE Stop: 09/17/18 21:43 Last Admin: 09/17/18 21:47 Dose: 60 mg Ketorolac Tromethamine (Toradol) 60 mg IM ONETIME ONE Stop: 09/17/18 21:44 Last Admin: 09/17/18 21:49 Dose: Not Given Ketorolac Tromethamine (Toradol) 30 mg IM Q6H PRN PRN Reason: Pain (moderate 4-6) Last Admin: 09/20/18 08:40 Dose: 30 mg Ketorolac Tromethamine (Toradol) 30 mg IVPUSH Q6H PRN PRN Reason: Pain (moderate 4-6) Last Admin: 09/21/18 21:33 Dose: 30 mg Lidocaine HCl (Xylocaine 1%) 10 ml INJECT ONETIME ONE Stop: 09/19/18 20:27 Last Admin: 09/19/18 23:02 Dose: 10 ml Lidocaine/Tetracaine (Let Soln) 3 ml TOP ONETIME ONE Stop: 09/23/18 13:12 Last Admin: 09/23/18 13:37 Dose: 3 ml Magnesium Sulfate (Pharmacy To Dose - Magnesium Replacement) 0 dose .XX ASDIRECTED PRN PRN Reason: RX TO WATCH MAG Midazolam HCl (Versed 1 Mg/Ml) 5 mg IVPUSH ONETIME ONE Stop: 09/19/18 20:26 Last Admin: 09/20/18 01:06 Dose: Not Given Midazolam HCl (Versed 1 Mg/Ml) 4 mg IM STAT ONE Stop: 09/19/18 21:27 Last Admin: 09/19/18 21:36 Dose: 4 mg Midazolam HCl (Versed 1 Mg/Ml) Confirm Administered Dose 2 mg .ROUTE .STK-MED ONE Stop: 09/26/18 08:02 Potassium Chloride (Pharmacy To Dose - Potassium Replacement) 0 dose .XX ASDIRECTED PRN PRN Reason: RX TO WATCH K Potassium Chloride (Klor-Con M20) 40 meq PO ONETIME ONE Stop: 09/18/18 09:16 Last Admin: 09/18/18 09:20 Dose: 40 meq Potassium Chloride (Klor-Con M20) 40 meq PO Q4H CYNTHIA Stop: 09/19/18 14:46 Last Admin: 09/19/18 15:30 Dose: 40 meq Potassium Chloride (Klor-Con M20) 40 meq PO BID CYNTHIA Stop: 09/26/18 09:01 Last Admin: 09/26/18 10:23 Dose: 40 meq Propofol (Diprivan 20 Ml) Confirm Administered Dose 600 mg .ROUTE .STK-MED ONE Stop: 09/26/18 08:02 Scopolamine (Transderm-Scop) 1.5 mg TRDERM Q72H ONE Stop: 09/19/18 09:49 Last Admin: 09/19/18 10:16 Dose: 1.5 mg Tramadol HCl (Ultram) 50 mg PO ONETIME ONE Stop: 09/17/18 21:44 Last Admin: 09/17/18 21:48 Dose: 50 mg Tramadol HCl (Ultram) 100 mg PO ONETIME ONE Stop: 09/17/18 21:44 Last Admin: 09/17/18 21:49 Dose: Not Given Vancomycin HCl (Pharmacy To Dose - Vancomycin) 0 dose .XX ASDIRECTED PRN PRN Reason: RX TO DOSE VANCO Vancomycin HCl (Vancomycin) Confirm Administered Dose 1 gm .ROUTE .STK-MED ONE Stop: 09/23/18 20:24 Last Admin: 09/23/18 22:59 Dose: Not Given Vitamin E (Vitamin E) 400 units PO DAILY CYNTHIA Stop: 09/22/18 09:01 Last Admin: 09/22/18 08:00 Dose: 400 units
[2018-09-27] MEDS ORDERED: Sodium Chloride 0.9% 1,000 ML IV ONE (17:33)
[2018-09-27] MEDS ORDERED: Sodium Chloride 0.9% 100 ML ONE (18:40)
[2018-09-27] MEDS ORDERED: Piperacillin/Tazobactam 4.5 GM in Sodium Chloride 0.9% 100 ML IV SCH (20:30)
[2018-09-28] MEDS: Piperacillin/Tazobactam 4.5 GM in Sodium Chloride 0.9% 100 ML IV SCH ×4 (05:11→21:05)
[2018-09-28] MEDS: Sodium Chloride 0.9% 1,000 ML IV SCH ×3 (05:45→22:36)
[2018-09-28] MEDS ORDERED: Magnesium Sulfate/Water 2 GM in Premix Bag 1 BAG IV ONE ×2 (07:01→10:00)
--- NOTE | 2018-09-28 07:14 | PCM.PN ---
- General Info Date of Service: 09/28/18 Subjective Update: In to see Gissel. She is lying in bed and has just returned from the OR with Dr. Jurado. She reports pain is slightly worse than yesterday. Updated on plan and discharge plan. No patient or nursing concerns. Functional Status: Reports: Pain Controlled, Tolerating Diet, Ambulating, Urinating. Denies: New Symptoms - Review of Systems General: Reports: No Symptoms. Denies: Weakness, Fatigue, Malaise, Chills HEENT: Reports: No Symptoms. Denies: Headaches, Sore Throat Pulmonary: Reports: No Symptoms. Denies: Shortness of Breath, Cough, Sputum, Wheezing Cardiovascular: Reports: No Symptoms. Denies: Chest Pain, Palpitations, Dyspnea on Exertion, Edema Gastrointestinal: Reports: No Symptoms. Denies: Abdominal Pain, Constipation, Diarrhea, Nausea, Vomiting Genitourinary: Reports: No Symptoms. Denies: Pain Musculoskeletal: Reports: Foot Pain. Denies: Leg Pain Skin: Reports: No Symptoms. Denies: Cyanosis Neurological: Reports: Difficulty Walking, Gait Disturbance. Denies: Confusion Psychiatric: Reports: No Symptoms. Denies: Confusion - Patient Data Vitals - Most Recent: Last Vital Signs Temp 98.8 F 09/28/18 03:36 Pulse 63 09/28/18 03:36 Resp 16 09/28/18 03:36 BP 117/63 09/28/18 03:36 Pulse Ox 93 L 09/28/18 03:36 Weight - Most Recent: 172 lb 9.6 oz I&O - Last 24 Hours: Intake & Output 09/27/18 09/28/18 09/28/18 22:59 06:59 14:59 Intake Total 2642 Balance 2642 Lab Results Last 24 Hours: Laboratory Results - last 24 hr 09/27/18 09/28/18 09/28/18 Range/Units 05:30 06:15 06:15 WBC 11.56 H (3.98-10.04) K/mm3 RBC 3.49 L (3.98-5.22) M/mm3 Hgb 10.6 L (11.2-15.7) gm/L Hct 32.4 L (34.1-44.9) % MCV 92.8 (79.4-94.8) fl MCH 30.4 (25.6-32.2) pg MCHC 32.7 (32.2-35.5) g/dl RDW Std Deviation 39.8 (36.4-46.3) fL Plt Count 254 (182-369) K/mm3 MPV 10.9 (9.4-12.3) fl Neut % (Auto) 64.6 (34.0-71.1) % Lymph % (Auto) 25.1 (19.3-51.7) % [place] % (Auto) 6.2 (4.7-12.5) % Eos % (Auto) 2.7 (0.7-5.8) Baso % (Auto) 0.4 (0.1-1.2) % Neut # (Auto) 7.46 H (1.56-6.13) K/mm3 Lymph # (Auto) 2.90 (1.18-3.74) K/mm3 [place] # (Auto) 0.72 H (0.24-0.36) K/mm3 Eos # (Auto) 0.31 (0.04-0.36) K/mm3 Baso # (Auto) 0.05 (0.01-0.08) K/mm3 Manual Slide Review Abnormal smear Sodium 141 (136-145) mEq/L Potassium 3.4 L (3.5-5.1) mEq/L Chloride 106 (98-107) mEq/L Carbon Dioxide 24 (21-32) mEq/L Anion Gap 14.4 (5-15) BUN 7 (7-18) mg/dL Creatinine 1.3 H (0.55-1.02) mg/dL Est Cr Clr Drug Dosing 54.72 mL/min Estimated GFR (MDRD) 50 (>60) mL/min BUN/Creatinine Ratio 5.4 L (14-18) Glucose 81 (74-106) mg/dL Lactic Acid (0.4-2.0) mmol/L Calcium 8.9 (8.5-10.1) mg/dL Magnesium 1.6 L (1.8-2.4) mg/dl C-Reactive Protein 3.7 H* (<1.0) mg/dL 09/28/18 Range/Units 06:18 WBC (3.98-10.04) K/mm3 RBC (3.98-5.22) M/mm3 Hgb (11.2-15.7) gm/L Hct (34.1-44.9) % MCV (79.4-94.8) fl MCH (25.6-32.2) pg MCHC (32.2-35.5) g/dl RDW Std Deviation (36.4-46.3) fL Plt Count (182-369) K/mm3 MPV (9.4-12.3) fl Neut % (Auto) (34.0-71.1) % Lymph % (Auto) (19.3-51.7) % Kem[place] % (Auto) (4.7-12.5) % Eos % (Auto) (0.7-5.8) Baso % (Auto) (0.1-1.2) % Neut # (Auto) (1.56-6.13) K/mm3 Lymph # (Auto) (1.18-3.74) K/mm3 [place] # (Auto) (0.24-0.36) K/mm3 Eos # (Auto) (0.04-0.36) K/mm3 Baso # (Auto) (0.01-0.08) K/mm3 Manual Slide Review Sodium (136-145) mEq/L Potassium (3.5-5.1) mEq/L Chloride (98-107) mEq/L Carbon Dioxide (21-32) mEq/L Anion Gap (5-15) BUN (7-18) mg/dL Creatinine (0.55-1.02) mg/dL Est Cr Clr Drug Dosing mL/min Estimated GFR (MDRD) (>60) mL/min BUN/Creatinine Ratio (14-18) Glucose (74-106) mg/dL Lactic Acid 0.7 (0.4-2.0) mmol/L Calcium (8.5-10.1) mg/dL Magnesium (1.8-2.4) mg/dl C-Reactive Protein (<1.0) mg/dL Franco Results Last 24 Hours: Microbiology 09/26/18 08:48 Gram Stain - Final Leg, Left Anaerobic Culture - Preliminary NO GROWTH AFTER 1 DAY 09/21/18 11:15 Gram Stain - Final Ankle, Left Anaerobic Culture - Preliminary Med Orders - Current: Current Medications Acetaminophen (Tylenol) 650 mg PO Q4H PRN PRN Reason: Pain (Mild 1-3)/fever Last Admin: 09/27/18 21:42 Dose: 650 mg Hydrocodone Bitart/Acetaminophen ([place] 325-10 Mg) 1 tab PO Q6H PRN PRN Reason: Pain Last Admin: 09/27/18 21:44 Dose: 1 tab Albuterol/Ipratropium (Duoneb 3.0-0.5 Mg/3 Ml) 3 ml NEB Q4H PRN PRN Reason: Shortness Of Breath/wheezing Bisacodyl (Dulcolax) 5 mg PO DAILY PRN PRN Reason: Constipation Docusate Sodium (Colace) 100 mg PO BID PRN PRN Reason: Constipation Enoxaparin Sodium (Lovenox) 40 mg SUBCUT DAILY [facility] Last Admin: 09/27/18 09:28 Dose: 40 mg Famotidine (Pepcid) 20 mg PO BID [facility] Last Admin: 09/27/18 21:43 Dose: 20 mg Hydralazine HCl (Apresoline) 20 mg IVPUSH Q4H PRN PRN Reason: Hypertension Hydrocortisone (Hydrocortisone 1% Crm) 0 gm TOP QID PRN PRN Reason: Rash/Itching Last Admin: 09/19/18 12:44 Dose: 1 applic Hydromorphone HCl (Dilaudid) 1 mg IVPUSH Q8H PRN PRN Reason: Pain Sodium Chloride (Normal Saline) 1,000 mls @ 125 mls/hr IV ASDIRECTED [facility] Last Admin: 09/28/18 05:45 Dose: 125 mls/hr Piperacillin Sod/Tazobactam (Sod 4.5 gm/ Sodium Chloride) 100 mls @ 25 mls/hr IV Q8H [facility] Last Admin: 09/28/18 05:45 Dose: 25 mls/hr Magnesium Sulfate 2 gm/ Premix 50 mls @ 25 mls/hr IV ONETIME ONE Stop: 09/28/18 09:00 Lidocaine/Tetracaine (Let Soln) 3 ml TOP ONETIME PRN PRN Reason: Use for foot wound debridement Lorazepam (Ativan) 0.5 mg IVPUSH Q4H PRN PRN Reason: Withdrawal Symptoms Lorazepam (Ativan) 2 mg IVPUSH Q4H PRN PRN Reason: Seizures Lorazepam (Ativan) 1 mg IV Q6H PRN PRN Reason: Anxiety Last Admin: 09/20/18 00:34 Dose: 1 mg Metoprolol Tartrate (Lopressor) 5 mg IVPUSH Q4H PRN PRN Reason: Tachycardia Miscellaneous Information (Remove Patch) 1 ea TRDERM DAILY [facility] Last Admin: 09/27/18 09:29 Dose: Not Given Nicotine (Habitrol) 21 mg TRDERM DAILY [facility] Last Admin: 09/27/18 09:28 Dose: Not Given Ondansetron HCl (Zofran) 4 mg IV Q6H PRN PRN Reason: Nausea/Vomiting Last Admin: 09/19/18 09:52 Dose: 4 mg Polyethylene Glycol (Miralax) 17 gm PO DAILY PRN PRN Reason: Constipation Potassium Chloride (Klor-Con M20) 40 meq PO BID [facility] Stop: 09/28/18 21:01 Saccharomyces Boulardii (Florastor) 250 mg PO BID [facility] Last Admin: 09/27/18 21:50 Dose: 250 mg Senna/Docusate Sodium (Senna Plus) 1 tab PO BID PRN PRN Reason: Constipation Temazepam (Restoril) 15 mg PO BEDTIME PRN PRN Reason: Sleep Last Admin: 09/24/18 01:08 Dose: 15 mg Discontinued Medications Hydrocodone Bitart/Acetaminophen ([place] 325-5 Mg) 1 tab PO Q4H PRN PRN Reason: Pain Last Admin: 09/26/18 00:11 Dose: 1 tab Famotidine (Pepcid) 20 mg IVPUSH ONETIME ONE Stop: 09/18/18 09:01 Last Admin: 09/18/18 09:20 Dose: 20 mg Fentanyl (Sublimaze) 100 mcg IVPUSH ONETIME ONE Stop: 09/19/18 20:27 Last Admin: 09/20/18 01:07 Dose: Not Given Fentanyl (Sublimaze) 100 mcg IM STAT ONE Stop: 09/19/18 21:27 Last Admin: 09/19/18 21:38 Dose: 100 mcg Fentanyl (Sublimaze) 100 mcg IM ONETIME ONE Stop: 09/19/18 22:51 Last Admin: 09/19/18 22:59 Dose: 100 mcg Fentanyl (Sublimaze) Confirm Administered Dose 100 mcg .ROUTE .STK-MED ONE Stop: 09/26/18 08:02 Hydromorphone HCl (Dilaudid) 0.5 mg IVPUSH ONETIME ONE Stop: 09/18/18 07:14 Last Admin: 09/18/18 07:27 Dose: 0.5 mg Hydromorphone HCl (Dilaudid) 0.5 mg IVPUSH Q6H PRN PRN Reason: Pain (severe 7-10) Last Admin: 09/25/18 20:31 Dose: 0.5 mg Hydromorphone HCl (Dilaudid) 0.5 mg IVPUSH ONETIME ONE Stop: 09/23/18 13:11 Last Admin: 09/23/18 13:38 Dose: 0.5 mg Hydromorphone HCl (Dilaudid) Confirm Administered Dose 0.5 mg .ROUTE .STK-MED ONE Stop: 09/26/18 08:52 Hydromorphone HCl (Dilaudid) Confirm Administered Dose 0.5 mg .ROUTE .STK-MED ONE Stop: 09/26/18 09:03 Ceftriaxone Sodium 2 gm/ (Sodium Chloride) 100 mls @ 200 mls/hr IV Q24H [facility] Last Admin: 09/17/18 23:53 Dose: 200 mls/hr Sodium Chloride (Normal Saline) Confirm Administered Dose 1,000 mls @ as directed .ROUTE .STK-MED ONE Stop: 09/18/18 01:15 Last Admin: 09/18/18 02:35 Dose: Not Given Sodium Chloride (Normal Saline) 1,000 mls @ 125 mls/hr IV ASDIRECTED [facility] Last Admin: 09/19/18 02:23 Dose: 125 mls/hr Ceftriaxone Sodium 2 gm/ (Sodium Chloride) 100 mls @ 200 mls/hr IV Q24H [facility] Last Admin: 09/18/18 11:47 Dose: 200 mls/hr Piperacillin Sod/Tazobactam (Sod 4.5 gm/ Sodium Chloride) 100 mls @ 25 mls/hr IV Q8H [facility] Last Admin: 09/19/18 21:27 Dose: Not Given Piperacillin Sod/Tazobactam (Sod 4.5 gm/ Sodium Chloride) 100 mls @ 200 mls/hr IV ONETIME ONE Stop: 09/18/18 19:44 Last Admin: 09/18/18 20:52 Dose: 200 mls/hr Vancomycin HCl 1 gm/ Sodium (Chloride) 250 mls @ 250 mls/hr IV Q8H [facility] Last Admin: 09/19/18 21:28 Dose: Not Given Sodium Chloride (Normal Saline) 1,000 mls @ 50 mls/hr IV ASDIRECTED [facility] Last Admin: 09/22/18 08:04 Dose: 50 mls/hr Magnesium Sulfate 2 gm/ Premix 50 mls @ 25 mls/hr IV ONETIME ONE Stop: 09/19/18 12:44 Last Admin: 09/19/18 12:08 Dose: 25 mls/hr Vancomycin HCl 1 gm/ Sodium (Chloride) 250 mls @ 250 mls/hr IV Q8H [facility] Last Admin: 09/20/18 01:38 Dose: Not Given Piperacillin Sod/Tazobactam (Sod 4.5 gm/ Sodium Chloride) 100 mls @ 25 mls/hr IV Q8H [facility] Last Admin: 09/24/18 09:31 Dose: 25 mls/hr Vancomycin HCl 1 gm/ Sodium (Chloride) 250 mls @ 250 mls/hr IV Q8H [facility] Last Admin: 09/21/18 02:49 Dose: Not Given Vancomycin HCl 1 gm/Vancomycin HCl 250 mg/ Sodium Chloride 500 mls @ 333.333 mls/hr IV Q8H [facility] Last Admin: 09/21/18 03:09 Dose: 250 mls/hr Vancomycin HCl 1 gm/Vancomycin HCl 250 mg/ Sodium Chloride 250 mls @ 166.667 mls/hr IV Q8H [facility] Last Admin: 09/22/18 11:30 Dose: Not Given Magnesium Sulfate 2 gm/ Premix 50 mls @ 25 mls/hr IV ONETIME ONE Stop: 09/21/18 15:16 Last Admin: 09/21/18 15:32 Dose: 25 mls/hr Sodium Chloride (Normal Saline) 1,000 mls @ 125 mls/hr IV ASDIRECTED [facility] Stop: 09/22/18 20:00 Last Admin: 09/22/18 11:31 Dose: 125 mls/hr Sodium Chloride (Normal Saline) 1,000 mls @ 50 mls/hr IV ASDIRECTED [facility] Last Admin: 09/22/18 19:13 Dose: 50 mls/hr Vancomycin HCl 1 gm/ Sodium (Chloride) 250 mls @ 250 mls/hr IV Q12H [facility] Last Admin: 09/24/18 08:23 Dose: 250 mls/hr Sodium Chloride (Normal Saline) 1,000 mls @ 999 mls/hr IV ASDIRECTED ONE Stop: 09/23/18 14:00 Last Admin: 09/23/18 13:37 Dose: 999 mls/hr Sodium Chloride (Normal Saline) 1,000 mls @ 999 mls/hr IV ONETIME ONE Stop: 09/23/18 15:25 Last Admin: 09/23/18 14:47 Dose: 999 mls/hr Sodium Chloride (Normal Saline) 1,000 mls @ 75 mls/hr IV ASDIRECTED [facility] Last Admin: 09/23/18 15:52 Dose: 75 mls/hr Ampicillin Sodium/Sulbactam (Sodium 3 gm/ Sodium Chloride) 100 mls @ 200 mls/ hr IV Q8H [facility] Last Admin: 09/24/18 11:39 Dose: Not Given Piperacillin Sod/Tazobactam (Sod 4.5 gm/ Sodium Chloride) 100 mls @ 25 mls/hr IV Q8H [facility] Last Admin: 09/26/18 10:26 Dose: 25 mls/hr Lidocaine HCl (Xylocaine-Mpf 1%) Confirm Administered Dose 4 mls @ as directed .ROUTE .STK-MED ONE Stop: 09/26/18 08:03 Magnesium Sulfate 2 gm/ Premix 50 mls @ 25 mls/hr IV ONETIME ONE Stop: 09/26/18 17:42 Last Admin: 09/26/18 15:58 Dose: 25 mls/hr Piperacillin Sod/Tazobactam (Sod 4.5 gm/ Sodium Chloride) 100 mls @ 200 mls/hr IV Q8H [facility] Last Admin: 09/28/18 05:11 Dose: Not Given Piperacillin Sod/Tazobactam (Sod 4.5 gm/ Sodium Chloride) 100 mls @ 25 mls/hr IV Q8H [facility] Sodium Chloride (Normal Saline) 1,000 mls @ 999 mls/hr IV ONETIME ONE Stop: 09/27/18 18:33 Last Admin: 09/27/18 17:54 Dose: 999 mls/hr Sodium Chloride (Normal Saline) Confirm Administered Dose 100 mls @ as directed .ROUTE .STK-MED ONE Stop: 09/27/18 18:41 Last Admin: 09/27/18 20:17 Dose: Not Given Iopamidol (Isovue-370 (76%)) 100 ml IV ONETIME ONE Stop: 09/17/18 22:27 Last Admin: 09/18/18 02:33 Dose: Not Given Ketamine HCl (Ketalar) Confirm Administered Dose 500 mg .ROUTE .STK-MED ONE Stop: 09/26/18 08:02 Ketamine HCl (Ketalar) Confirm Administered Dose 500 mg .ROUTE .STK-MED ONE Stop: 09/26/18 08:06 Ketorolac Tromethamine (Toradol) 60 mg IM ONETIME ONE Stop: 09/17/18 21:43 Last Admin: 09/17/18 21:47 Dose: 60 mg Ketorolac Tromethamine (Toradol) 60 mg IM ONETIME ONE Stop: 09/17/18 21:44 Last Admin: 09/17/18 21:49 Dose: Not Given Ketorolac Tromethamine (Toradol) 30 mg IM Q6H PRN PRN Reason: Pain (moderate 4-6) Last Admin: 09/20/18 08:40 Dose: 30 mg Ketorolac Tromethamine (Toradol) 30 mg IVPUSH Q6H PRN PRN Reason: Pain (moderate 4-6) Last Admin: 09/21/18 21:33 Dose: 30 mg Lidocaine HCl (Xylocaine 1%) 10 ml INJECT ONETIME ONE Stop: 09/19/18 20:27 Last Admin: 09/19/18 23:02 Dose: 10 ml Lidocaine/Tetracaine (Let Soln) 3 ml TOP ONETIME ONE Stop: 09/23/18 13:12 Last Admin: 09/23/18 13:37 Dose: 3 ml Magnesium Sulfate (Pharmacy To Dose - Magnesium Replacement) 0 dose .XX ASDIRECTED PRN PRN Reason: RX TO WATCH MAG Midazolam HCl (Versed 1 Mg/Ml) 5 mg IVPUSH ONETIME ONE Stop: 09/19/18 20:26 Last Admin: 09/20/18 01:06 Dose: Not Given Midazolam HCl (Versed 1 Mg/Ml) 4 mg IM STAT ONE Stop: 09/19/18 21:27 Last Admin: 09/19/18 21:36 Dose: 4 mg Midazolam HCl (Versed 1 Mg/Ml) Confirm Administered Dose 2 mg .ROUTE .STK-MED ONE Stop: 09/26/18 08:02 Potassium Chloride (Pharmacy To Dose - Potassium Replacement) 0 dose .XX ASDIRECTED PRN PRN Reason: RX TO WATCH K Potassium Chloride (Klor-Con M20) 40 meq PO ONETIME ONE Stop: 09/18/18 09:16 Last Admin: 09/18/18 09:20 Dose: 40 meq Potassium Chloride (Klor-Con M20) 40 meq PO Q4H [facility] Stop: 09/19/18 14:46 Last Admin: 09/19/18 15:30 Dose: 40 meq Potassium Chloride (Klor-Con M20) 40 meq PO BID [facility] Stop: 09/26/18 09:01 Last Admin: 09/26/18 10:23 Dose: 40 meq Propofol (Diprivan 20 Ml) Confirm Administered Dose 600 mg .ROUTE .STK-MED ONE Stop: 09/26/18 08:02 Scopolamine (Transderm-Scop) 1.5 mg TRDERM Q72H ONE Stop: 09/19/18 09:49 Last Admin: 09/19/18 10:16 Dose: 1.5 mg Tramadol HCl (Ultram) 50 mg PO ONETIME ONE Stop: 09/17/18 21:44 Last Admin: 09/17/18 21:48 Dose: 50 mg Tramadol HCl (Ultram) 100 mg PO ONETIME ONE Stop: 09/17/18 21:44 Last Admin: 09/17/18 21:49 Dose: Not Given Vancomycin HCl (Pharmacy To Dose - Vancomycin) 0 dose .XX ASDIRECTED PRN PRN Reason: RX TO DOSE VANCO Vancomycin HCl (Vancomycin) Confirm Administered Dose 1 gm .ROUTE .STK-MED ONE Stop: 09/23/18 20:24 Last Admin: 09/23/18 22:59 Dose: Not Given Vitamin E (Vitamin E) 400 units PO DAILY [facility] Stop: 09/22/18 09:01 Last Admin: 09/22/18 08:00 Dose: 400 units - Exam Quality Assessment: DVT Prophylaxis General: Alert, Oriented, Cooperative, No Acute Distress HEENT: Pupils Equal, Pupils Reactive, EOMI, Mucous Membr. Moist/[place] Neck: Supple, Trachea Midline, No JVD Lungs: Clear to Auscultation, Normal Respiratory Effort Cardiovascular: Regular Rate, Regular Rhythm GI/Abdominal Exam: Normal Bowel Sounds, Soft, Non-Tender, No Organomegaly, No Distention (Female) Exam: Deferred Back Exam: Normal Inspection, Full Range of Motion Extremities: Normal Capillary Refill, Pedal Edema (Left side edema - improving ) , Leg Pain (left foot ), Limited Range of Motion Peripheral Pulses: 1+: Dorsalis Pedis (L), 2+: Radial (L), Radial (R), Dorsalis Pedis (R) Skin: Warm, Dry, Intact Wound/Incisions: Dressing Dry and Intact Neurological: No New Focal Deficit Psy/Mental Status: Alert, Normal Affect, Normal Mood - Problem List & Annotations (1) Cellulitis of left ankle SNOMED Code(s): 76285592 Code(s): L03.116 - CELLULITIS OF LEFT LOWER LIMB Status: Acute Priority: High Current Visit: Yes (2) Cellulitis of left foot SNOMED Code(s): 459388988 Code(s): L03.116 - CELLULITIS OF LEFT LOWER LIMB Status: Acute Priority: High Current Visit: Yes (3) Elevated C-reactive protein SNOMED Code(s): 106620990261333 Code(s): R79.82 - ELEVATED C-REACTIVE PROTEIN (CRP) Status: Acute Priority: High Current Visit: Yes (4) IV drug user SNOMED Code(s): 492852941 Code(s): F19.90 - OTHER PSYCHOACTIVE SUBSTANCE USE, UNSPECIFIED, UNCOMPLICATED Status: Acute Priority: High Current Visit: Yes (5) Methamphetamine abuse SNOMED Code(s): 323860076 Code(s): F15.10 - OTHER STIMULANT ABUSE, UNCOMPLICATED Status: Acute Priority: High Current Visit: Yes (6) Neutrophilic leukocytosis SNOMED Code(s): 848616730, 046404234 Code(s): D72.9 - DISORDER OF WHITE BLOOD CELLS, UNSPECIFIED Status: Acute Priority: High Current Visit: Yes (7) DEVORA (acute kidney injury) SNOMED Code(s): 57337691 Code(s): N17.9 - ACUTE KIDNEY FAILURE, UNSPECIFIED Status: Acute Current Visit: Yes - Problem List Review Problem List Initiated/Reviewed/Updated: Yes - My Orders Last 24 Hours: My Active Orders 09/28/18 05:30 Piperacillin/Tazobactam [Piperacil-Tazobact] 4.5 gm Sodium Chloride 0.9% [ Normal Saline] 100 ml IV Q8H 09/28/18 07:01 Magnesium Sulfate/Water [Magnesium Sulfate 2 GM in Water 50 ML] 2 gm Premix Bag 1 bag IV ONETIME 09/28/18 09:00 Potassium Chloride [Klor-Con M20] 40 meq PO BID - Plan Plan:: Assessment/Plan: Acute: Severe Left Foot Cellulitis With Significant Edema; abscess assessment, gen surg consult for I/D. POST OP day 2 ~I/D, please see op note; Returned to OR today 09/28/18 for dressing change - 07/31 IV Drug Use with Meth - She is a known Meth user; last use was day before admission - She injects with re-used needle on her ankle - U/S shows report diffuse subcutaneous edema - CT scan report reads diffuse subcutaneous edema. No bony erosion to indicate osteomyelitis. No focal fluid collections of abscess are seen. - Foot X-ray on 09/21/18: Soft tissue swelling; Incidental calcaneal spur; No acute bony abnormality or erosion seen - WBC 32.52--> 27.85-->20.21-->16.57-->15.15-->15.25-->14.49-->14.19-->13.59- ->13.51-->11.41-->11.56 - CRP 37.3-->34.6-->25.4-->24.1-->17.0-->13.2-->9.2-->10.8-->8.6-->6.0-->3.7 - Pain management plus NSAIDs - IV vancomycin and zosyn -> discontinue vancomycin based on worsening renal function - PT/OT consult - PT wound care - nursing to take over but PT will monitor need for debridement - Monitor for worsening of foot infection - Wound culture ordered after blisters opened - negative so far; had already started antibiotics - Culture obtained intraoperatively - pending Poly-Substance Abuse - Ampheth/Meth, Benzos and THC positive - SAC consult, Mike consult, Kaela consult; patient refused all - Counseled on substance abuse - Per patient she was clean for 3 years after treatment and then relapsed - Multiple injection locations on extremities - SW consult - Essentially refusing all services - have offered multiple times - Reports she will stop on her own and does not need help DEVORA, stable - Baseline eGFR and creatinine appear to be WNL - BUN 6-->6-->7-->4.0-->8-->7-->8 - Creatinine 0.8-->1.3-->1.4-->1.5-->1.3 - eGFR >60 --> 50-->46-->42-->50 - Has been receiving IV fluids -> Increase as ordered - 2L IV fluid bolus given - Likely 2/2 poor intake and medications Resolved: E-lytes Abnormality - Hypokalemia and Hypomagnesemia - K 3.4 and Mg 1.6 - 2/2 inadequate intake; she has been sick lately - Replete and monitor Sepsis - 2/2 Severe Left Foot Infection - Tachycardia and WBC 33K plus Infection - Received IV 2 Grams of IV Rocephin x1 in ED - So far blood culture for 4 day is negative - Change antibiotic regimen to IV Vancomycin and Zosyn for pharmacy to dose Chronic: Substance Abuse: Meth and Marijuana Nicotine Dependence, Counseled on Smoking Cessation Plan: She is clinically improving Routine AM Labs SAC consult for substance abuse; patient refused UA negative for UTI Nicotine Patch Daily - initially refusing but now accepting at times Topical Hydrocortisone cream for skin rash/itching PRN QID Vitamin E level and Vitamin E 400 mg po Daily x3 doses only for anti-oxidant and wound healing Add Opioids for pain control; patient is a meth addict cannot expect to just control her pain with NSAIDs Ketorolac for anti-inflammatory agent -> discontinue GI/DVT PPx: H2B/Lovenox SubQ Daily PT/OT for assessment and evaluation SW/CM for d/c planning Code status: Full code; PCP: None - needs to establish LOS >96HR due to need for continued IV antibiotics, surgical management. Likely discharge 09/29/18 pending surgical recommendations.
[2018-09-28] MEDS ORDERED: Propofol 200 MG/20 ML SDV ONE ×2 (09:55→10:21)
[2018-09-28] MEDS ORDERED: Midazolam 1 MG/ML 2 ML SDV ONE (09:55)
[2018-09-28] MEDS ORDERED: fentaNYL 100 MCG/2 ML SDV ONE (09:55)
[2018-09-28] MEDS ORDERED: Ketamine 500 mg/10 ML MDV ONE (10:21)
[2018-09-28] MEDS ORDERED: Lidocaine 1% 4 ML ONE (10:23)
--- NOTE | 2018-09-28 11:03 | PCM.SN ---
- Free Text/Narrative Note: Wound looks much better today. Some full thickness scab formed and may progress to sloughing but should be minimal. Deep tissue in wound appears healthy. A single 2x2 gauze was placed between the skin edges and can be removed tomorrow. No further packing needed. Wound will heal by secondary intention. Simply keep wound wrapped and covered with clean dressing. Would recommend weekly wound check by PCP clinic until healed. No further surgery needed.
[2018-09-28] MEDS: Famotidine 20 MG Tab PO SCH ×2 (11:16→21:04)
[2018-09-28] MEDS: Saccharomyces Boulardii (Probiotic) 250 MG Cap PO SCH ×2 (11:16→21:03)
[2018-09-28] MEDS: Enoxaparin 40 MG/0.4 ML Syringe SUBCUT SCH (11:17)
[2018-09-28] MEDS: Nicotine 21 MG/24 Hr Patch TRDERM SCH (11:17)
[2018-09-28] MEDS: Potassium Chloride 20 MEQ Tab.ER PO SCH ×2 (11:17→21:03)
--- NOTE | 2018-09-28 11:33 | PCM48HPAN ---
Post Anesthesia Note - EVALUATION WITHIN 48HRS OF ANESTHETIC Vital Signs in Normal Range: Yes Patient Participated in Evaluation: Yes Respiratory Function Stable: Yes Airway Patent: Yes Cardiovascular Function Stable: Yes Hydration Status Stable: Yes Pain Control Satisfactory: Yes Nausea and Vomiting Control Satisfactory: Yes Mental Status Recovered: Yes Pulse Rate: 53 SaO2: 95 Resp Rate: 20 Temperature: 37.1 C Blood Pressure: 117/63
--- NOTE | 2018-09-28 15:30 | OR ---
DATE OF OPERATION: 09/28/2018 SURGEON: Mitesh Jurado MD PREOPERATIVE DIAGNOSIS: Left foot abscess. POSTOPERATIVE DIAGNOSIS: Left foot abscess. OPERATION PERFORMED: Dressing change with monitored anesthesia care. ANESTHESIA: MAC. SPECIMEN: None. INDICATION FOR PROCEDURE: This 27-year-old female had a large abscess on the lateral side of the left foot and ankle. This was incised and drained and packed 2 days ago. She returns to the operating room for a dressing change. DESCRIPTION OF PROCEDURE: In the endoscopy suite, anesthesia was provided and the wound was undressed. The packing was removed, which revealed a markedly improved erythematous area around the previous abscess. The deeper tissue site seemed to be clean and healthy tissue. There was no more evidence of purulent drainage. A 2 x 2 gauze was placed back within the wound. This was lightly packed and can be removed tomorrow. The dressing was reapplied and the patient taken back to the floor. ESTIMATED BLOOD LOSS: MMODAL /[id number]
--- NOTE | 2018-09-28 18:46 | CR ---
Chest: 2 views of the chest were obtained. Comparison: Prior chest x-ray of 09/19/18. Right-sided central line is seen. Tip lies within the superior vena cava. Heart size and mediastinum are normal. Lungs are clear with no acute parenchymal change. Bony structures are unremarkable. Impression: 1. Right sided central line with tip lying within the superior vena cava. 2. Nothing acute is otherwise seen on 2 view chest x-ray. Diagnostic code #2
[2018-09-28] MEDS: Acetaminophen/HYDROcodone 325-10 MG Tab PO PRN (21:04)
[2018-09-28] MEDS: Acetaminophen 325 MG Tab PO PRN (21:05)
[2018-09-29] MEDS: Sodium Chloride 0.9% 1,000 ML IV SCH (06:21)
[2018-09-29] MEDS: Piperacillin/Tazobactam 4.5 GM in Sodium Chloride 0.9% 100 ML IV SCH (06:21)
--- NOTE | 2018-09-29 07:35 | PCM.DCSUM1 ---
Discharge Summary - Hospital Course HPI Initial Comments: This is a 27 yo white female with past medical hx/o Nicotine Dependence, Hx/o Heroin Abuse, Chronic Meth and Marijuana Use who comes in for evaluation of left foot pain associated with worsening edema and erythema that started over the past 48 hours. She denies any fever or chills. However she admits she is an IVU and she injects meth in her left ankle. He last use was about noon yesterday. She is also a marijuana user. She denies a similar hx/o it in the past. Patient smokes cigarettes about 1/2 a pack per day. She drinks 2-3 beers once a week. Her initial work up in ED shows a CBC remarkable for WBC of 32.52, Platelet of 181, Neutrophils of 87.5%, Lymphocyte of 5.2%, Neutrophil # of 28.42, and Monocyte # of 1.96. Her chemistry is significant for K of 3.3, BS of 108, Total Bilirubin of 1.1, AST of 14, CRP of 37.3, and Albumin of 3.2. Her screening is negative. Her left lower extremity US and CT scan report both reads diffuse subcutaneous edema. Patient is being admitted primarily for management of severe left foot infection. Diagnosis: Stroke: No - Discharge Data Discharge Date: 09/29/18 (Admit date: 09/18/18) Discharge Disposition: Home, Self-Care 01 Condition: Good - Discharge Diagnosis/Problem(s) (1) Cellulitis of left ankle SNOMED Code(s): 70935710 ICD Code: L03.116 - CELLULITIS OF LEFT LOWER LIMB Status: Acute Priority : High Current Visit: Yes (2) Cellulitis of left foot SNOMED Code(s): 191271330 ICD Code: L03.116 - CELLULITIS OF LEFT LOWER LIMB Status: Acute Priority : High Current Visit: Yes (3) Elevated C-reactive protein SNOMED Code(s): 855825546273041 ICD Code: R79.82 - ELEVATED C-REACTIVE PROTEIN (CRP) Status: Acute Priority: High Current Visit: Yes (4) IV drug user SNOMED Code(s): 719957792 ICD Code: F19.90 - OTHER PSYCHOACTIVE SUBSTANCE USE, UNSPECIFIED, UNCOMPLICATED Status: Acute Priority: High Current Visit: Yes (5) Methamphetamine abuse SNOMED Code(s): 792240760 ICD Code: F15.10 - OTHER STIMULANT ABUSE, UNCOMPLICATED Status: Acute Priority: High Current Visit: Yes (6) Neutrophilic leukocytosis SNOMED Code(s): 590198927, 056154697 ICD Code: D72.9 - DISORDER OF WHITE BLOOD CELLS, UNSPECIFIED Status: Acute Priority: High Current Visit: Yes (7) DEVORA (acute kidney injury) SNOMED Code(s): 11668147 ICD Code: N17.9 - ACUTE KIDNEY FAILURE, UNSPECIFIED Status: Acute Current Visit: Yes - Patient Summary/Data Consults: Consultations 09/18/18 08:42 Consult to Case Management/House Mover Helper [CONS] Routine Consult to Spiritual Care [CONS] Routine OT Evaluation and Treatment [CONS] Routine PT Evaluation and Treatment [CONS] Routine 09/18/18 14:02 Consult for Substance Abuse [CONS] Routine 09/21/18 09:04 Consult to Physical Therapy [PT Evaluation and Treatment] [CONS] Routine 09/21/18 12:07 Consult to Physician [CONS] Routine 09/25/18 15:39 Consult to Physician [CONS] Routine Labs Pending at D/C: Awaiting completion of gram stain. Recommended Follow-up Testing/Procedures: Follow-up with PCP within 7-10 days of discharge, sooner if needed. Hospital Course: Assessment/Plan: Acute: Severe Left Foot Cellulitis With Significant Edema; abscess assessment, gen surg consult for I/D. POST OP day 2 ~I/D, please see op note; Returned to OR today 09/28/18 for dressing change - / IV Drug Use with Meth - She is a known Meth user; last use was day before admission - She injects with re-used needle on her ankle - U/S shows report diffuse subcutaneous edema - CT scan report reads diffuse subcutaneous edema. No bony erosion to indicate osteomyelitis. No focal fluid collections of abscess are seen. - Foot X-ray on 09/21/18: Soft tissue swelling; Incidental calcaneal spur; No acute bony abnormality or erosion seen - WBC 32.52--> 27.85-->20.21-->16.57-->15.15-->15.25-->14.49-->14.19-->13.59- ->13.51-->11.41-->11.56-->10.49 - CRP 37.3-->34.6-->25.4-->24.1-->17.0-->13.2-->9.2-->10.8-->8.6-->6.0-->3.7- ->2.4 - Pain management plus NSAIDs -> stopped NSAIDs. - IV vancomycin and zosyn -> discontinue vancomycin based on worsening renal function - PT/OT consult - PT wound care - nursing to take over but PT will monitor need for debridement - Monitor for worsening of foot infection - Wound culture ordered after blisters opened - negative so far; had already started antibiotics - Culture obtained intraoperatively - negative thus far Poly-Substance Abuse - Ampheth/Meth, Benzos and THC positive - SARA consult, Mike consult, Kaela consult; patient refused all - Counseled on substance abuse - Per patient she was clean for 3 years after treatment and then relapsed - Multiple injection locations on extremities - consult - Essentially refusing all services - have offered multiple times - Reports she will stop on her own and does not need help DEVORA, stable - Baseline eGFR and creatinine appear to be WNL - BUN 6-->6-->7-->4.0-->8-->7-->8-->10 - Creatinine 0.8-->1.3-->1.4-->1.5-->1.3 - eGFR >60 --> 50-->46-->42-->50 - Has been receiving IV fluids -> Increase as ordered - 2L IV fluid bolus given - Likely 2/2 poor intake and medications Resolved: E-lytes Abnormality - Hypokalemia and Hypomagnesemia - K 3.4 and Mg 1.6 - 2/2 inadequate intake; she has been sick lately - Replete and monitor Sepsis - 2/2 Severe Left Foot Infection - Tachycardia and WBC 33K plus Infection - Received IV 2 Grams of IV Rocephin x1 in ED - So far blood culture for 4 day is negative - Change antibiotic regimen to IV Vancomycin and Zosyn for pharmacy to dose Chronic: Substance Abuse: Meth and Marijuana Nicotine Dependence, Counseled on Smoking Cessation Plan: She is clinically improving Routine AM Labs SAC consult for substance abuse; patient refused UA negative for UTI Nicotine Patch Daily - initially refusing but now accepting at times Topical Hydrocortisone cream for skin rash/itching PRN QID Vitamin E level and Vitamin E 400 mg po Daily x3 doses only for anti-oxidant and wound healing Add Opioids for pain control; patient is a meth addict cannot expect to just control her pain with NSAIDs Ketorolac for anti-inflammatory agent -> discontinue GI/DVT PPx: H2B/Lovenox SubQ Daily PT/OT for assessment and evaluation / for d/c planning Code status: Full code; PCP: None - needs to establish LOS >96HR due to need for continued IV antibiotics, surgical management. Gissel presented to our ED with foot pain and was found to have an infection in her left foot. This was secondary to injecting methamphetamines and she admits a dirty needle was used. She had reportedly been on a salas of significant drug use as her boyfriend was reportedly going to enter treatment. She reports she had been clean for several years and then started using again recently. CT scan was obtained and showed significant edema but no signs of osteomyelitis. There was no abscess noted. She was given Rocephin in the ED and then switched to vancomycin and Zosyn as she was tachycardic and had a elevated white count. She was believed to be septic. Blood cultures remain negative. Due to difficulty with IV access a central line was placed. This was discontinued prior to discharge. Initially her creatinine luis carlos and she suffered acute kidney injury. Suspect this is from NSAIDs and vancomycin which were both stopped. Zosyn was continued. Labs continued to improve for the most part. She was given several fluid boluses and longer duration IV fluids which did improve her creatinine to 1.3. Electrolytes were supplemented. Wound culture was obtained and was negative. This was obtained after she had been receiving IV antibiotics for quite some time as her wound did began draining. PT and OT did work with her although ultimately she refused. She did allow PT wound debridement. Pain was controlled using both oral and IV push medications. She was noted to have a possible abscess forming and general surgery was consulted. On 09/26/18 she was taken back to the operating room for an I&D. Wound cultures for this were obtained. Discussed this with lab as there was significant WBCs and some gram-positive cocci noted however they were unable to get this to grow further. Her microbiology they believe this was due to antibiotic usage prior to culture being obtained. On 09/28/13 patient will return to the OR for dressing change. Dr. Jurado, general surgeon, noted significant improvement on our foot looked. He did not think she will require anymore packing. Dressing was changed prior to discharge and per his recommendation she should follow-up with her primary care provider in one week. She does not have a local primary care provider and did pick Jenni Restrepo NP at [place]. Appointment will be made with her. We did attempt to address her drug use while here. She reports she has undergone treatment for in the past but feels she will be able to stop on her own at this point. She did refuse psychiatry consult and licensed addiction counselor consults. She was on nicotine patch while here and was offered patches on discharge. She reports she does have several patches and gum at home and will not need this. We did discuss following up with primary care provider or other resources should she change her mind. She was discharged today on 3 more days of twice a day Bactrim DS. This was recommended by pharmacy. She also had 10 days of probiotic twice a day. Keo 5/325 every 6 hours for 4 more days was prescribed. We did discuss weaning off of narcotics. She was instructed to stay hydrated and attend her follow-up appointment as scheduled. PT/OT was recommending her utilize a walker and this has been addressed as she reportedly has access to one. She'll be discharged home today with the assistance of her boyfriend. - Patient Instructions Diet: Usual Diet as Tolerated Activity: As Tolerated Wound/Incision Care: Keep Operative Site/Wound Site Clean and Dry, Change Dressing Daily Notify Provider of: Fever, Increased Pain, Swelling and Redness, Drainage, Nausea and/or Vomiting Other/Special Instructions: Follow-up with PCP within 1 week. We discussed [facility] and an appointment should be made there. Stop your illicit drug use. Do not drive or operate any heavy machinery while on your pain medications. Attempt to wean yourself off of your pain medications. Continue to walk around your house. Utilize the walker as directed. As we discussed you will continue to have some pain and swelling after discharge. This should slowly improve. Stay hydrated. Drink plenty of water. Change your dressing daily. Contact your primary care provider or return to the ED should symptoms begin to worsen or you notice any puss-like drainage, worsening redness, or pain. - Discharge Plan *PRESCRIPTION DRUG MONITORING PROGRAM REVIEWED*: No *COPY OF PRESCRIPTION DRUG MONITORING REPORT IN PATIENT LINDSAY: No Prescriptions/Med Rec: Acetaminophen/HYDROcodone [Keo 325-10 MG] 1 tab PO Q6H PRN #16 tablet PRN Reason: Pain Saccharomyces Boulardii [Florastor] 250 mg PO BID #20 cap Sulfamethoxazole/Trimethoprim [Bactrim Ds Tablet] 1 each PO BID #6 tablet Home Medications: Home Meds Acetaminophen/HYDROcodone [Keo 325-10 MG] 1 tab PO Q6H PRN #16 tablet [Rx] Saccharomyces Boulardii [Florastor] 250 mg PO BID #20 cap 09/29/18 [Rx] Sulfamethoxazole/Trimethoprim [Bactrim Ds Tablet] 1 each PO BID #6 tablet [Rx] Oxygen Therapy Mode: Room Air Patient Handouts: Cellulitis, Adult, [id number], Steps to Quit Smoking Referrals: Jenni Restrepo NP [Ordering Only Provider] - 10/01/18 2:00 pm (Please follow-up with your primary care doctor, Dr. Restrepo, on ThursdayOctober 01 at 2:00pm. ) - Discharge Summary/Plan Comment DC Time >30 min.: Yes (45 minutes ) - General Info Date of Service: 09/29/18 Subjective Update: In to see Gissel. She is lying in bed and reports she is doing well. Her pain has improved and she feels better. Nursing will perform dressing change this AM prior to discharge and instruct on how to manage dressing at home. No patient or nursing concerns. Central line will be discontinued prior to discharge. She will be discharged today. Functional Status: Reports: Pain Controlled, Tolerating Diet, Ambulating, Urinating. Denies: New Symptoms - Review of Systems General: Reports: No Symptoms. Denies: Fever, Weakness, Fatigue, Malaise, Chills HEENT: Reports: No Symptoms. Denies: Headaches, Sore Throat Pulmonary: Reports: No Symptoms. Denies: Shortness of Breath, Pleuritic Chest Pain, Cough, Sputum, Wheezing Cardiovascular: Reports: Edema (left foot 2/2 infection - improved to resolved) . Denies: Chest Pain, Palpitations, Dyspnea on Exertion, Lightheadedness Gastrointestinal: Reports: No Symptoms. Denies: Abdominal Pain, Constipation, Diarrhea, Nausea, Vomiting Genitourinary: Reports: No Symptoms. Denies: Pain Musculoskeletal: Reports: Foot Pain (improved ). Denies: Leg Pain Skin: Reports: No Symptoms Neurological: Reports: Difficulty Walking, Gait Disturbance. Denies: Confusion , Headache, Numbness, Pre-Existing Deficit, Tingling, Trouble Speaking, Weakness , Change in Speech Psychiatric: Reports: No Symptoms - Patient Data Vitals - Most Recent: Last Vital Signs Temp 98.8 F 09/28/18 11:33 Pulse 92 09/28/18 21:02 Resp 18 09/28/18 21:02 BP 114/64 09/28/18 21:02 Pulse Ox 100 09/28/18 21:02 Weight - Most Recent: 172 lb I&O - Last 24 hours: Intake & Output 09/28/18 09/29/18 09/29/18 22:59 06:59 14:59 Intake Total 2148 2468 Balance 2148 2468 Lab Results - Last 24 hrs: Laboratory Results - last 24 hr 09/18/18 09/28/18 09/29/18 Range/Units 16:03 18:25 06:24 WBC 10.49 H (3.98-10.04) K/mm3 RBC 3.59 L (3.98-5.22) M/mm3 Hgb 11.0 L (11.2-15.7) gm/L Hct 33.7 L (34.1-44.9) % MCV 93.9 (79.4-94.8) fl MCH 30.6 (25.6-32.2) pg MCHC 32.6 (32.2-35.5) g/dl RDW Std Deviation 40.6 (36.4-46.3) fL Plt Count 260 (182-369) K/mm3 MPV 11.0 (9.4-12.3) fl Neut % (Auto) 67.6 (34.0-71.1) % Lymph % (Auto) 21.8 (19.3-51.7) % [place] % (Auto) 6.3 (4.7-12.5) % Eos % (Auto) 3.1 (0.7-5.8) Baso % (Auto) 0.6 (0.1-1.2) % Neut # (Auto) 7.10 H (1.56-6.13) K/mm3 Lymph # (Auto) 2.29 (1.18-3.74) K/mm3 [place] # (Auto) 0.66 H (0.24-0.36) K/mm3 Eos # (Auto) 0.32 (0.04-0.36) K/mm3 Baso # (Auto) 0.06 (0.01-0.08) K/mm3 Sodium (136-145) mEq/L Potassium (3.5-5.1) mEq/L Chloride (98-107) mEq/L Carbon Dioxide (21-32) mEq/L Anion Gap (5-15) BUN (7-18) mg/dL Creatinine (0.55-1.02) mg/dL Est Cr Clr Drug Dosing mL/min Estimated GFR (MDRD) (>60) mL/min BUN/Creatinine Ratio (14-18) Glucose (74-106) mg/dL Lactic Acid (0.4-2.0) mmol/L Calcium (8.5-10.1) mg/dL Magnesium (1.8-2.4) mg/dl Troponin I < 0.017 (0.00-0.056) ng/mL C-Reactive Protein (<1.0) mg/dL U Benzodiazepine Level Negative (Iuoawj=016) 09/29/18 09/29/18 Range/Units 06:24 06:24 WBC (3.98-10.04) K/mm3 RBC (3.98-5.22) M/mm3 Hgb (11.2-15.7) gm/L Hct (34.1-44.9) % MCV (79.4-94.8) fl MCH (25.6-32.2) pg MCHC (32.2-35.5) g/dl RDW Std Deviation (36.4-46.3) fL Plt Count (182-369) K/mm3 MPV (9.4-12.3) fl Neut % (Auto) (34.0-71.1) % Lymph % (Auto) (19.3-51.7) % [place] % (Auto) (4.7-12.5) % Eos % (Auto) (0.7-5.8) Baso % (Auto) (0.1-1.2) % Neut # (Auto) (1.56-6.13) K/mm3 Lymph # (Auto) (1.18-3.74) K/mm3 [place] # (Auto) (0.24-0.36) K/mm3 Eos # (Auto) (0.04-0.36) K/mm3 Baso # (Auto) (0.01-0.08) K/mm3 Sodium 141 (136-145) mEq/L Potassium 4.0 (3.5-5.1) mEq/L Chloride 107 (98-107) mEq/L Carbon Dioxide 25 (21-32) mEq/L Anion Gap 13.0 (5-15) BUN 10 (7-18) mg/dL Creatinine 1.3 H (0.55-1.02) mg/dL Est Cr Clr Drug Dosing 54.72 mL/min Estimated GFR (MDRD) 50 (>60) mL/min BUN/Creatinine Ratio 7.7 L (14-18) Glucose 94 (74-106) mg/dL Lactic Acid 0.9 (0.4-2.0) mmol/L Calcium 8.8 (8.5-10.1) mg/dL Magnesium 1.8 (1.8-2.4) mg/dl Troponin I (0.00-0.056) ng/mL C-Reactive Protein 2.4 H* (<1.0) mg/dL U Benzodiazepine Level (Mlfzrz=[id number]) FRANCIS Results - Last 24 hrs: Microbiology 09/21/18 11:15 Gram Stain - Final Ankle, Left Anaerobic Culture - Final 09/26/18 08:48 Gram Stain - Final Leg, Left Anaerobic Culture - Preliminary NO GROWTH AFTER 2 DAYS Med Orders - Current: Current Medications Acetaminophen (Tylenol) 650 mg PO Q4H PRN PRN Reason: Pain (Mild 1-3)/fever Last Admin: 09/28/18 21:05 Dose: 650 mg Hydrocodone Bitart/Acetaminophen (Keo 325-10 Mg) 1 tab PO Q6H PRN PRN Reason: Pain Last Admin: 09/28/18 21:04 Dose: 1 tab Albuterol/Ipratropium (Duoneb 3.0-0.5 Mg/3 Ml) 3 ml NEB Q4H PRN PRN Reason: Shortness Of Breath/wheezing Bisacodyl (Dulcolax) 5 mg PO DAILY PRN PRN Reason: Constipation Docusate Sodium (Colace) 100 mg PO BID PRN PRN Reason: Constipation Enoxaparin Sodium (Lovenox) 40 mg SUBCUT DAILY [facility] Last Admin: 09/28/18 11:17 Dose: 40 mg Famotidine (Pepcid) 20 mg PO BID [facility] Last Admin: 09/28/18 21:04 Dose: 20 mg Hydralazine HCl (Apresoline) 20 mg IVPUSH Q4H PRN PRN Reason: Hypertension Hydrocortisone (Hydrocortisone 1% Crm) 0 gm TOP QID PRN PRN Reason: Rash/Itching Last Admin: 09/19/18 12:44 Dose: 1 applic Hydromorphone HCl (Dilaudid) 1 mg IVPUSH Q8H PRN PRN Reason: Pain Sodium Chloride (Normal Saline) 1,000 mls @ 125 mls/hr IV ASDIRECTED [facility] Last Admin: 09/29/18 06:21 Dose: 125 mls/hr Piperacillin Sod/Tazobactam (Sod 4.5 gm/ Sodium Chloride) 100 mls @ 25 mls/hr IV Q8H [facility] Last Admin: 09/29/18 06:21 Dose: 25 mls/hr Lidocaine/Tetracaine (Let Soln) 3 ml TOP ONETIME PRN PRN Reason: Use for foot wound debridement Lorazepam (Ativan) 0.5 mg IVPUSH Q4H PRN PRN Reason: Withdrawal Symptoms Last Admin: 09/28/18 19:12 Dose: 0.5 mg Lorazepam (Ativan) 2 mg IVPUSH Q4H PRN PRN Reason: Seizures Lorazepam (Ativan) 1 mg IV Q6H PRN PRN Reason: Anxiety Last Admin: 09/20/18 00:34 Dose: 1 mg Metoprolol Tartrate (Lopressor) 5 mg IVPUSH Q4H PRN PRN Reason: Tachycardia Miscellaneous Information (Remove Patch) 1 ea TRDERM DAILY [facility] Last Admin: 09/28/18 11:17 Dose: Not Given Nicotine (Habitrol) 21 mg TRDERM DAILY [facility] Last Admin: 09/28/18 11:17 Dose: Not Given Ondansetron HCl (Zofran) 4 mg IV Q6H PRN PRN Reason: Nausea/Vomiting Last Admin: 09/19/18 09:52 Dose: 4 mg Polyethylene Glycol (Miralax) 17 gm PO DAILY PRN PRN Reason: Constipation Saccharomyces Boulardii (Florastor) 250 mg PO BID [facility] Last Admin: 09/28/18 21:03 Dose: 250 mg Senna/Docusate Sodium (Senna Plus) 1 tab PO BID PRN PRN Reason: Constipation Temazepam (Restoril) 15 mg PO BEDTIME PRN PRN Reason: Sleep Last Admin: 09/24/18 01:08 Dose: 15 mg Discontinued Medications Hydrocodone Bitart/Acetaminophen (Keo 325-5 Mg) 1 tab PO Q4H PRN PRN Reason: Pain Last Admin: 09/26/18 00:11 Dose: 1 tab Famotidine (Pepcid) 20 mg IVPUSH ONETIME ONE Stop: 09/18/18 09:01 Last Admin: 09/18/18 09:20 Dose: 20 mg Fentanyl (Sublimaze) 100 mcg IVPUSH ONETIME ONE Stop: 09/19/18 20:27 Last Admin: 09/20/18 01:07 Dose: Not Given Fentanyl (Sublimaze) 100 mcg IM STAT ONE Stop: 09/19/18 21:27 Last Admin: 09/19/18 21:38 Dose: 100 mcg Fentanyl (Sublimaze) 100 mcg IM ONETIME ONE Stop: 09/19/18 22:51 Last Admin: 09/19/18 22:59 Dose: 100 mcg Fentanyl (Sublimaze) Confirm Administered Dose 100 mcg .ROUTE .STK-MED ONE Stop: 09/26/18 08:02 Fentanyl (Sublimaze) Confirm Administered Dose 100 mcg .ROUTE .STK-MED ONE Stop: 09/28/18 09:56 Hydromorphone HCl (Dilaudid) 0.5 mg IVPUSH ONETIME ONE Stop: 09/18/18 07:14 Last Admin: 09/18/18 07:27 Dose: 0.5 mg Hydromorphone HCl (Dilaudid) 0.5 mg IVPUSH Q6H PRN PRN Reason: Pain (severe 7-10) Last Admin: 09/25/18 20:31 Dose: 0.5 mg Hydromorphone HCl (Dilaudid) 0.5 mg IVPUSH ONETIME ONE Stop: 09/23/18 13:11 Last Admin: 09/23/18 13:38 Dose: 0.5 mg Hydromorphone HCl (Dilaudid) Confirm Administered Dose 0.5 mg .ROUTE .STK-MED ONE Stop: 09/26/18 08:52 Hydromorphone HCl (Dilaudid) Confirm Administered Dose 0.5 mg .ROUTE .[facility] ONE Stop: 09/26/18 09:03 Ceftriaxone Sodium 2 gm/ (Sodium Chloride) 100 mls @ 200 mls/hr IV Q24H [facility] Last Admin: 09/17/18 23:53 Dose: 200 mls/hr Sodium Chloride (Normal Saline) Confirm Administered Dose 1,000 mls @ as directed .ROUTE .[facility] ONE Stop: 09/18/18 01:15 Last Admin: 09/18/18 02:35 Dose: Not Given Sodium Chloride (Normal Saline) 1,000 mls @ 125 mls/hr IV ASDIRECTED [facility] Last Admin: 09/19/18 02:23 Dose: 125 mls/hr Ceftriaxone Sodium 2 gm/ (Sodium Chloride) 100 mls @ 200 mls/hr IV Q24H [facility] Last Admin: 09/18/18 11:47 Dose: 200 mls/hr Piperacillin Sod/Tazobactam (Sod 4.5 gm/ Sodium Chloride) 100 mls @ 25 mls/hr IV Q8H [facility] Last Admin: 09/19/18 21:27 Dose: Not Given Piperacillin Sod/Tazobactam (Sod 4.5 gm/ Sodium Chloride) 100 mls @ 200 mls/hr IV ONETIME ONE Stop: 09/18/18 19:44 Last Admin: 09/18/18 20:52 Dose: 200 mls/hr Vancomycin HCl 1 gm/ Sodium (Chloride) 250 mls @ 250 mls/hr IV Q8H [facility] Last Admin: 09/19/18 21:28 Dose: Not Given Sodium Chloride (Normal Saline) 1,000 mls @ 50 mls/hr IV ASDIRECTED [facility] Last Admin: 09/22/18 08:04 Dose: 50 mls/hr Magnesium Sulfate 2 gm/ Premix 50 mls @ 25 mls/hr IV ONETIME ONE Stop: 09/19/18 12:44 Last Admin: 09/19/18 12:08 Dose: 25 mls/hr Vancomycin HCl 1 gm/ Sodium (Chloride) 250 mls @ 250 mls/hr IV Q8H [facility] Last Admin: 09/20/18 01:38 Dose: Not Given Piperacillin Sod/Tazobactam (Sod 4.5 gm/ Sodium Chloride) 100 mls @ 25 mls/hr IV Q8H [facility] Last Admin: 09/24/18 09:31 Dose: 25 mls/hr Vancomycin HCl 1 gm/ Sodium (Chloride) 250 mls @ 250 mls/hr IV Q8H [facility] Last Admin: 09/21/18 02:49 Dose: Not Given Vancomycin HCl 1 gm/Vancomycin HCl 250 mg/ Sodium Chloride 500 mls @ 333.333 mls/hr IV Q8H [facility] Last Admin: 09/21/18 03:09 Dose: 250 mls/hr Vancomycin HCl 1 gm/Vancomycin HCl 250 mg/ Sodium Chloride 250 mls @ 166.667 mls/hr IV Q8H [facility] Last Admin: 09/22/18 11:30 Dose: Not Given Magnesium Sulfate 2 gm/ Premix 50 mls @ 25 mls/hr IV ONETIME ONE Stop: 09/21/18 15:16 Last Admin: 09/21/18 15:32 Dose: 25 mls/hr Sodium Chloride (Normal Saline) 1,000 mls @ 125 mls/hr IV ASDIRECTED [facility] Stop: 09/22/18 20:00 Last Admin: 09/22/18 11:31 Dose: 125 mls/hr Sodium Chloride (Normal Saline) 1,000 mls @ 50 mls/hr IV ASDIRECTED [facility] Last Admin: 09/22/18 19:13 Dose: 50 mls/hr Vancomycin HCl 1 gm/ Sodium (Chloride) 250 mls @ 250 mls/hr IV Q12H [facility] Last Admin: 09/24/18 08:23 Dose: 250 mls/hr Sodium Chloride (Normal Saline) 1,000 mls @ 999 mls/hr IV ASDIRECTED ONE Stop: 09/23/18 14:00 Last Admin: 09/23/18 13:37 Dose: 999 mls/hr Sodium Chloride (Normal Saline) 1,000 mls @ 999 mls/hr IV ONETIME ONE Stop: 09/23/18 15:25 Last Admin: 09/23/18 14:47 Dose: 999 mls/hr Sodium Chloride (Normal Saline) 1,000 mls @ 75 mls/hr IV ASDIRECTED [facility] Last Admin: 09/23/18 15:52 Dose: 75 mls/hr Ampicillin Sodium/Sulbactam (Sodium 3 gm/ Sodium Chloride) 100 mls @ 200 mls/ hr IV Q8H [facility] Last Admin: 09/24/18 11:39 Dose: Not Given Piperacillin Sod/Tazobactam (Sod 4.5 gm/ Sodium Chloride) 100 mls @ 25 mls/hr IV Q8H [facility] Last Admin: 09/26/18 10:26 Dose: 25 mls/hr Lidocaine HCl (Xylocaine-Mpf 1%) Confirm Administered Dose 4 mls @ as directed .ROUTE .STK-MED ONE Stop: 09/26/18 08:03 Magnesium Sulfate 2 gm/ Premix 50 mls @ 25 mls/hr IV ONETIME ONE Stop: 09/26/18 17:42 Last Admin: 09/26/18 15:58 Dose: 25 mls/hr Piperacillin Sod/Tazobactam (Sod 4.5 gm/ Sodium Chloride) 100 mls @ 200 mls/hr IV Q8H [facility] Last Admin: 09/28/18 05:11 Dose: Not Given Piperacillin Sod/Tazobactam (Sod 4.5 gm/ Sodium Chloride) 100 mls @ 25 mls/hr IV Q8H [facility] Sodium Chloride (Normal Saline) 1,000 mls @ 999 mls/hr IV ONETIME ONE Stop: 09/27/18 18:33 Last Admin: 09/27/18 17:54 Dose: 999 mls/hr Sodium Chloride (Normal Saline) Confirm Administered Dose 100 mls @ as directed .ROUTE .STK-MED ONE Stop: 09/27/18 18:41 Last Admin: 09/27/18 20:17 Dose: Not Given Magnesium Sulfate 2 gm/ Premix 50 mls @ 25 mls/hr IV ONETIME ONE Stop: 09/28/18 09:00 Last Admin: 09/28/18 11:17 Dose: Not Given Magnesium Sulfate 2 gm/ Premix 50 mls @ 25 mls/hr IV ONETIME ONE Stop: 09/28/18 11:59 Last Admin: 09/28/18 12:34 Dose: 25 mls/hr Lidocaine HCl (Xylocaine-Mpf 1%) Confirm Administered Dose 4 mls @ as directed .ROUTE .STK-MED ONE Stop: 09/28/18 10:24 Iopamidol (Isovue-370 (76%)) 100 ml IV ONETIME ONE Stop: 09/17/18 22:27 Last Admin: 09/18/18 02:33 Dose: Not Given Ketamine HCl (Ketalar) Confirm Administered Dose 500 mg .ROUTE .STK-MED ONE Stop: 09/26/18 08:02 Ketamine HCl (Ketalar) Confirm Administered Dose 500 mg .ROUTE .STK-MED ONE Stop: 09/26/18 08:06 Ketamine HCl (Ketalar) Confirm Administered Dose 500 mg .ROUTE .STK-MED ONE Stop: 09/28/18 10:22 Ketorolac Tromethamine (Toradol) 60 mg IM ONETIME ONE Stop: 09/17/18 21:43 Last Admin: 09/17/18 21:47 Dose: 60 mg Ketorolac Tromethamine (Toradol) 60 mg IM ONETIME ONE Stop: 09/17/18 21:44 Last Admin: 09/17/18 21:49 Dose: Not Given Ketorolac Tromethamine (Toradol) 30 mg IM Q6H PRN PRN Reason: Pain (moderate 4-6) Last Admin: 09/20/18 08:40 Dose: 30 mg Ketorolac Tromethamine (Toradol) 30 mg IVPUSH Q6H PRN PRN Reason: Pain (moderate 4-6) Last Admin: 09/21/18 21:33 Dose: 30 mg Lidocaine HCl (Xylocaine 1%) 10 ml INJECT ONETIME ONE Stop: 09/19/18 20:27 Last Admin: 09/19/18 23:02 Dose: 10 ml Lidocaine/Tetracaine (Let Soln) 3 ml TOP ONETIME ONE Stop: 09/23/18 13:12 Last Admin: 09/23/18 13:37 Dose: 3 ml Magnesium Sulfate (Pharmacy To Dose - Magnesium Replacement) 0 dose .XX ASDIRECTED PRN PRN Reason: RX TO WATCH MAG Midazolam HCl (Versed 1 Mg/Ml) 5 mg IVPUSH ONETIME ONE Stop: 09/19/18 20:26 Last Admin: 09/20/18 01:06 Dose: Not Given Midazolam HCl (Versed 1 Mg/Ml) 4 mg IM STAT ONE Stop: 09/19/18 21:27 Last Admin: 09/19/18 21:36 Dose: 4 mg Midazolam HCl (Versed 1 Mg/Ml) Confirm Administered Dose 2 mg .ROUTE .STK-MED ONE Stop: 09/26/18 08:02 Midazolam HCl (Versed 1 Mg/Ml) Confirm Administered Dose 2 mg .ROUTE .STK-MED ONE Stop: 09/28/18 09:56 Potassium Chloride (Pharmacy To Dose - Potassium Replacement) 0 dose .XX ASDIRECTED PRN PRN Reason: RX TO WATCH K Potassium Chloride (Klor-Con M20) 40 meq PO ONETIME ONE Stop: 09/18/18 09:16 Last Admin: 09/18/18 09:20 Dose: 40 meq Potassium Chloride (Klor-Con M20) 40 meq PO Q4H [facility] Stop: 09/19/18 14:46 Last Admin: 09/19/18 15:30 Dose: 40 meq Potassium Chloride (Klor-Con M20) 40 meq PO BID CYNTHIA Stop: 09/26/18 09:01 Last Admin: 09/26/18 10:23 Dose: 40 meq Potassium Chloride (Klor-Con M20) 40 meq PO BID CYNTHIA Stop: 09/28/18 21:01 Last Admin: 09/28/18 21:03 Dose: 40 meq Propofol (Diprivan 20 Ml) Confirm Administered Dose 600 mg .ROUTE .STK-MED ONE Stop: 09/26/18 08:02 Propofol (Diprivan 20 Ml) Confirm Administered Dose 200 mg .ROUTE .STK-MED ONE Stop: 09/28/18 09:56 Propofol (Diprivan 20 Ml) Confirm Administered Dose 200 mg .ROUTE .STK-MED ONE Stop: 09/28/18 10:22 Scopolamine (Transderm-Scop) 1.5 mg TRDERM Q72H ONE Stop: 09/19/18 09:49 Last Admin: 09/19/18 10:16 Dose: 1.5 mg Tramadol HCl (Ultram) 50 mg PO ONETIME ONE Stop: 09/17/18 21:44 Last Admin: 09/17/18 21:48 Dose: 50 mg Tramadol HCl (Ultram) 100 mg PO ONETIME ONE Stop: 09/17/18 21:44 Last Admin: 09/17/18 21:49 Dose: Not Given Vancomycin HCl (Pharmacy To Dose - Vancomycin) 0 dose .XX ASDIRECTED PRN PRN Reason: RX TO DOSE VANCO Vancomycin HCl (Vancomycin) Confirm Administered Dose 1 gm .ROUTE .STK-MED ONE Stop: 09/23/18 20:24 Last Admin: 09/23/18 22:59 Dose: Not Given Vitamin E (Vitamin E) 400 units PO DAILY CYNTHIA Stop: 09/22/18 09:01 Last Admin: 09/22/18 08:00 Dose: 400 units - Exam Quality Assessment: Reports: DVT Prophylaxis General: Reports: Alert, Oriented, Cooperative, No Acute Distress HEENT: Reports: Pupils Equal, Pupils Reactive, EOMI, Mucous Membr. Moist/[place] Neck: Reports: Supple, Trachea Midline Lungs: Reports: Clear to Auscultation, Normal Respiratory Effort Cardiovascular: Reports: Regular Rate, Regular Rhythm GI/Abdominal Exam: Normal Bowel Sounds, Soft, Non-Tender, No Distention, No Abnormal Bruit (Female) Exam: Deferred Rectal (Female) Exam: Deferred Back Exam: Reports: Normal Inspection, Full Range of Motion Extremities: Normal Range of Motion, Normal Capillary Refill, Leg Pain ( improved ), Other (No erythema noted. Wound is healing. Edema improved. Pain is improved. ) Skin: Reports: Warm, Dry, Intact Wound/Incisions: Reports: Healing Well, Dressing Dry and Intact. Denies: Erythema Neurological: Reports: No New Focal Deficit Psy/Mental Status: Reports: Alert, Normal Affect, Normal Mood
[2018-09-29] MEDS: Acetaminophen/HYDROcodone 325-10 MG Tab PO PRN (10:11)
[2018-09-29] MEDS: Saccharomyces Boulardii (Probiotic) 250 MG Cap PO SCH (10:11)
[2018-09-29] MEDS: Famotidine 20 MG Tab PO SCH (10:12)
[2018-09-29] MEDS: Enoxaparin 40 MG/0.4 ML Syringe SUBCUT SCH (10:13)
[2018-09-29] MEDS: Nicotine 21 MG/24 Hr Patch TRDERM SCH (12:21)
[2018-09-29 14:49] VITALS: BP 133/68
== END 2018-09-29 13:10 | disposition home or self-care (01) | DRG 710 ==
LOC: JD.ED 21:08 → JD.MS 09-18 00:24 → EEVIPCON 09-18 00:24
PROVIDERS: ADMIT Internal Medicine; ATTEND Internal Medicine
PROC: 02HV33Z Insertion of Infusion Device into Superior Vena Cava, Percutaneous Approach (ICD-10-PCS; 2018-09-20)
PROC: 0J9R0ZZ Drainage of Left Foot Subcutaneous Tissue and Fascia, Open Approach (ICD-10-PCS; principal; 2018-09-26)
PROC: 2W0 Placement, Anatomical Regions, Change (ICD-10-PCS; 2018-09-28)
DX: A41.9 Sepsis, unspecified organism (principal); N17.9 Acute kidney failure, unspecified; E83.42 Hypomagnesemia; L03.116 Cellulitis of left lower limb; L02.612 Cutaneous abscess of left foot; F17.210 Nicotine dependence, cigarettes, uncomplicated; F15.10 Other stimulant abuse, uncomplicated; F12.10 Cannabis abuse, uncomplicated; F11.10 Opioid abuse, uncomplicated; F13.10 Sedative, hypnotic or anxiolytic abuse, uncomplicated; E87.6 Hypokalemia; E66.9 Obesity, unspecified; H54.7 Unspecified visual loss; F41.9 Anxiety disorder, unspecified; F32.9 Major depressive disorder, single episode, unspecified; Z91.19 Patient's noncompliance with other medical treatment and regimen
CPT/HCPCS: 00300; 00400; 36415; 71045; 71045-26; 71046; 71046-26; 73620-26-LT; 73620-LT; 73701-26-LT; 73701-LT; 76881-26-LT; 76881-LT; 80048; 80053; 80202; 80306; 80307; 80346; 81001; 83605; 83735; 84446; 84484; 84703; 85025; 85027; 86140; 87040; 87075; 87205; 93005; 93971-26-LT; 93971-LT; 96365; 96372; 97116-GP; 97162-GP; 97167-GO; 97530-GO; 97530-GP; 97535-GO; 97597-GP; 99284-25; 99285; A9270-GY; G0480; J0696; J1170; J1650; J1885; J2001; J2060; J2250; J2405; J2543; J2704; J3010; J3370; J3475; J3490; J7030; J7040; J7050; Q9967